=== PATIENT | female | born 1980 ===

== ENCOUNTER 2020-07-14 08:37 | Outpatient (REF) | payer MEDICARE, OTHER, SELFPAY ==
--- NOTE | 2020-07-14 08:53 | MR_ITS ---
EXAMINATION: MR CERVICAL SPINE WITHOUT CONTRAST CLINICAL INFORMATION: Cervical spine fusion in 2016. Locking with arm pain, trouble swallowing, bilateral arm tingling. Chest spasms. COMPARISON: Cervical spine MRI dated 08/27/2016. TECHNIQUE: MRI of the cervical spine was obtained using routine sequences without contrast. FINDINGS: VERTEBRAL BODIES AND PARASPINAL SOFT TISSUES: Straightening of the normal cervical lordosis, which may be positional or related to muscular spasm. No acute fracture or subluxation. No loss of vertebral body height. Anterior fusion hardware at C5-C6. No adjacent marrow edema to suggest hardware complication. No additional abnormal marrow signal. The visualized paraspinal soft tissues are unremarkable. CERVICOMEDULLARY JUNCTION AND VISUALIZED POSTERIOR FOSSA: Unremarkable. SPINAL LEVELS: C2-C3: No significant disc bulge. No central canal or neural foraminal stenosis. C3-C4: Redemonstration of a right subarticular disc protrusion with mild right neural foraminal stenosis. C4-C5: Small left paracentral disc protrusion which effaces the ventral thecal sac with an associated posterior annular fissure. No significant neural foraminal stenosis. C5-C6: Shallow disc osteophyte complex which partially effaces the ventral thecal sac. No significant neural foraminal stenosis. C6-C7: No significant disc bulge. No central canal or neural foraminal stenosis. C7-T1: No significant disc bulge. No central canal or neural foraminal stenosis. IMPRESSION: 1. Postsurgical changes related to anterior fusion hardware at C5-C6. Shallow disc osteophyte complex at this level which partially effaces the ventral thecal sac without significant neural foraminal stenosis. Findings are similar when compared to the prior examination. 2. C3-C4 right subarticular disc protrusion with mild right neural foraminal stenosis, unchanged. 3. C4-C5 small left paracentral disc protrusion which effaces the ventral thecal sac where there is annular fissuring. Findings are new when compared to the prior examination. No significant neural foraminal stenosis. Findings are new when compared to the prior examination.
== END 2020-07-14 08:38 | disposition home or self-care (01) ==
LOC: HO.MRI 08:37
PROVIDERS: PCP Internal Medicine Geriatric Medicine; Visit Provider Internal Medicine Geriatric Medicine
DX: R20.0 Anesthesia of skin (principal); R20.2 Paresthesia of skin; M62.838 Other muscle spasm; M54.2 Cervicalgia; G89.29 Other chronic pain; Z98.1 Arthrodesis status
CPT/HCPCS: 72141

== ENCOUNTER 2020-10-05 09:06 | Emergency (ER) | payer MEDICARE, OTHER, SELFPAY ==
[2020-10-05 10:21] VITALS: BP 126/84; PULSE 65; RESP 16; TEMP 36.6; O2SAT 99; BMI 25.8
--- NOTE | 2020-10-05 10:23 | ED_ITS ---
HPI - URI/Sore Throat General Chief Complaint: Upper Respiratory Symptoms Stated Complaint: multiple complaints Time Seen by Provider: 10/05/20 10:23 History of Present Illness HPI Narrative: This is a 40 years old female presented the mid to URI symptoms and chest pain since yesterday. Denies any fever chills MD elicited complaint: rhinorrhea and nasal congestion Onset (ago): day(s) (1) Consistency: constant Severity: moderate Description of mucous: clear Associated symptoms: denies other symptoms Related Data Previous Rx's Medication Instructions Recorded cephalexin [Keflex] 500 mg PO Q8H 7 Days #21 cap 10/05/20 Allergies Allergy/AdvReac Type Severity Reaction Status Date / Time baclofen [BACLOFEN] Allergy Mild NAUSEA & Unverified 06/19/20 17:50 VOMITING From COMPAZINE Allergy Mild AGITATION Uncoded 06/19/20 17:50 From REGLAN Allergy Mild AGITATION Uncoded 06/19/20 17:50 Review of Systems Review of Systems: Yes all other systems are reviewed and are negative Cardiovascular: Cardiovascular: Reports no additional cardiovascular complaints Genitourinary: Genitourinary: Reports no additional female genitourinary complaints Musculoskeletal: Musculoskeletal: Reports no additional musculoskeletal complaints Psychiatric: Psychiatric: Reports no additional psychiatric complaints [facility] Past Medical History Medical History Anxiety Asthma Fibromyalgia HTN (hypertension) Social History Social History Advance Directives: No Advance Directives Information Provided: No Physical Exam Vital Signs: Vital Signs: Last Vital Signs Temp 98 F 10/05/20 10:21 Pulse 57 10/05/20 11:07 Resp 18 10/05/20 11:07 BP 126/84 10/05/20 10:21 Pulse Ox 99 10/05/20 11:07 Body Mass Index 25.8 Const: Other: She appear well as she has no toxic Orientation/consciousness: oriented to person, oriented to place, oriented to time and patient oriented x3 HENMT: Head: Yes normal to inspection and Yes No palpable skull fracture present Eyes: General: appearance normal, both eyes and all related structures Neck: Neck: Yes normal visual inspection Chest: Chest palpation & inspection: normal inspection of the chest and normal palpation of entire chest wall Resp: Effort & Inspection: normal respiratory effort and able to speak in complete sentences Cardio: Jugular venous distension: no JVD Rate: regular rate GI: Inspection: Yes normal to inspection Palpation (GI): Soft to palpation, nontender and no guarding Skin: General skin exam: no rashes or lesions noted Neuro: General: oriented to person, oriented to place, oriented to time and patient oriented x3 Course Course Course Narrative: REEXAMINED AT ABOUT 12:10 SHE IS NOT IN DISTRESS SHE IS TESTING WITH THE PHONE SHE APPEAR COMFORTABLE CBC CHEMISTRY ESSENTIALLY NORMAL UA SHOWS A POSSIBLE UTI WILL DISCHARGE HOME ON P.O. [address]EF[address] MDM - URI/Sore Throat Lab Data Result diagrams: 10/05/20 11:07 10/05/20 11:07 Labs: Lab Results 10/05/20 10/05/20 10/05/20 Range/Units 11:07 11:07 11:07 WBC 3.7 L (4.8-10.8) X10*3/uL RBC 4.88 (4.20-5.50) X10*6/uL Hgb 13.4 (12.0-16.0) g/dl Hct 40.5 (37-47) % MCV 83.0 (80-98) fL MCH 27.5 (27.0-33.0) pg MCHC 33.1 (31.0-35.0) g/dl RDW 13.5 (11.0-16.0) % Plt Count 265 (160-400) X10*3/uL MPV 11.0 (9.4-12.3) fL Immature Gran % (Auto) 0.3 (0.0-0.4) % Neut % (Auto) 38.7 L (45-73) % Lymph % (Auto) 49.7 H (20-40) % [place] % (Auto) 7.0 (2-11) % Eos % (Auto) 3.5 (0-4) % Baso % (Auto) 0.8 (0-2) % Lymph # (Auto) 1.8 (1.2-4.9) X10*3/uL [place] # (Auto) 0.3 (0.1-1.2) X10*3/uL Eos # (Auto) 0.1 (0.0-0.4) X10*3/uL Baso # (Auto) 0.0 (0.0-0.2) X10*3/uL Abs Immat Gran (auto) 0.01 (0.00-0.03) X10*3/uL Absolute Neuts (auto) 1.4 L (2.0-8.3) X10*3/uL Absolute Nucleated RBC 0.000 (0.0-0.012) X10*3/uL Nucleated RBC % (auto) 0.0 (0.0-0.2) /100WBC Sodium 141 (135-145) mmol/L Potassium 3.2 L (3.3-5.1) mmol/l Chloride 104 (96-108) mmol/L Carbon Dioxide 30 H (22-29) mmol/L Anion Gap 10 L (12-20) BUN 5 L (9-16) mg/dL Creatinine 0.78 (0.5-1.4) mg/dL Estim Creat Clear Calc 97.8 Estimated GFR > 60 Random Glucose 87 (60-115) mg/dL Calcium 8.7 (8.4-10.2) mg/dL Total Bilirubin 0.6 (0.0-1.0) mg/dL AST 14 (5-31) U/L ALT 15 (0-31) U/L Alkaline Phosphatase 62 (39-117) U/L Troponin I High Sens < 3.5 (<3.5-17.0) ng/L Total Protein 6.8 (6.5-8.0) g/dL Albumin 4.3 (3.5-5.0) g/dL Urine Color Urine Appearance Urine pH (5.0-8.0) Ur Specific Reserve (1.005-1.025) Urine Protein (NEG-TRACE) MG/DL Urine Glucose (UA) (NEG) MG/DL Urine Ketones (NEG) MG/DL Urine Blood (NEG) Urine Nitrite (NEG) Ur Leukocyte Esterase (NEG) Urine Test (NEGATIVE) Coronavirus (PCR) (Negative) Influenza Type A (PCR) (Negative) Influenza Type B (PCR) (Negative) RSV RNA Qual (PCR) (Negative) 10/05/20 10/05/20 Range/Units 11:07 11:07 WBC (4.8-10.8) X10*3/uL RBC (4.20-5.50) X10*6/uL Hgb (12.0-16.0) g/dl Hct (37-47) % MCV (80-98) fL MCH (27.0-33.0) pg MCHC (31.0-35.0) g/dl RDW (11.0-16.0) % Plt Count (160-400) X10*3/uL MPV (9.4-12.3) fL Immature Gran % (Auto) (0.0-0.4) % Neut % (Auto) (45-73) % Lymph % (Auto) (20-40) % [place] % (Auto) (2-11) % Eos % (Auto) (0-4) % Baso % (Auto) (0-2) % Lymph # (Auto) (1.2-4.9) X10*3/uL [place] # (Auto) (0.1-1.2) X10*3/uL Eos # (Auto) (0.0-0.4) X10*3/uL Baso # (Auto) (0.0-0.2) X10*3/uL Abs Immat Gran (auto) (0.00-0.03) X10*3/uL Absolute Neuts (auto) (2.0-8.3) X10*3/uL Absolute Nucleated RBC (0.0-0.012) X10*3/uL Nucleated RBC % (auto) (0.0-0.2) /100WBC Sodium (135-145) mmol/L Potassium (3.3-5.1) mmol/l Chloride (96-108) mmol/L Carbon Dioxide (22-29) mmol/L Anion Gap (12-20) BUN (9-16) mg/dL Creatinine (0.5-1.4) mg/dL Estim Creat Clear Calc Estimated GFR Random Glucose (60-115) mg/dL Calcium (8.4-10.2) mg/dL Total Bilirubin (0.0-1.0) mg/dL AST (5-31) U/L ALT (0-31) U/L Alkaline Phosphatase (39-117) U/L Troponin I High Sens (<3.5-17.0) ng/L Total Protein (6.5-8.0) g/dL Albumin (3.5-5.0) g/dL Urine Color YELLOW Urine Appearance HAZY Urine pH 6.5 (5.0-8.0) Ur Specific Reserve 1.010 (1.005-1.025) Urine Protein NEG (NEG-TRACE) MG/DL Urine Glucose (UA) NEG (NEG) MG/DL Urine Ketones NEG (NEG) MG/DL Urine Blood NEG (NEG) Urine Nitrite NEG (NEG) Ur Leukocyte Esterase NEG (NEG) Urine Test NEGATIVE (NEGATIVE) Coronavirus (PCR) NEGATIVE (Negative) Influenza Type A (PCR) NEGATIVE (Negative) Influenza Type B (PCR) NEGATIVE (Negative) RSV RNA Qual (PCR) NEGATIVE (Negative) ECG Data Attestation: I personally reviewed and interpreted this ECG as follows: ECG interpretation date: 10/05/20 ECG interpretation time: 12:44 Prior ECG tracings: available for review Pacemaker model: NORMAL SINUS RHYTHM RATE [address]-T CHANGES Discharge Plan Discharge Clinical Impression: Upper respiratory infection, UTI (urinary tract infection) Patient Disposition: Home, Self-Care Instructions: Urinary Tract Infection in Women (ED), Upper Respiratory Infection (ED) Additional Instructions: FOLLOW-UP WITH YOUR PRIMARY CARE PHYSICIAN RETURN IF YOU WORSE Prescriptions: New cephalexin [Keflex] 500 mg capsule 500 mg PO Q8H 7 Days Qty: 21 RF: 0 Stand Alone Forms: Work/School Release
--- NOTE | 2020-10-05 10:28 | XR_ITS ---
EXAMINATION: XR CHEST CLINICAL INFORMATION: Chest pain. COMPARISON: None TECHNIQUE: Frontal view of the chest was obtained. FINDINGS: No significant abnormality is noted involving the heart, lungs, mediastinum, bony thorax or soft tissues. XR/XR chest 1V IMPRESSION: Unremarkable chest examination.
--- NOTE | 2020-10-05 10:28 | ECG_ITS ---
Test Reason : SOB Blood Pressure : / mmHG Vent. Rate : 061 BPM Atrial Rate : 061 BPM P-R Int : 178 ms QRS Dur : 088 ms QT Int : 438 ms P-R-T Axes : 067 101 037 degrees QTc Int : 440 ms Normal sinus rhythm Possible Left atrial enlargement Rightward axis Borderline ECG No previous ECGs available Referred By: Fabian Machuca Electronically Signed By:CRIS VENTURA
[2020-10-05 11:07] VITALS: PULSE 57; RESP 18; O2SAT 99
[2020-10-05 11:13] LABS: MANUAL DIFF FLAG NO
[2020-10-05 11:22] LABS: Basophils Percent Auto 0.8 % (0-2); Eosinophils Absolute Auto 0.1 X10*3/uL (0.0-0.4); Eosinophils Percent Auto 3.5 % (0-4); Hematocrit 40.5 % (37-47); Hemoglobin 13.4 g/dl (12.0-16.0); Imm Gran Abs Auto 0.01 X10*3/uL (0.00-0.03); Imm Gran Pct Auto 0.3 % (0.0-0.4); Lymphocytes Absolute Auto 1.8 X10*3/uL (1.2-4.9); Lymphocytes Percent Auto 49.7 % (20-40); Mean Corpuscular HGB Conc 33.1 g/dl (31.0-35.0); Mean Corpuscular Hemoglobin 27.5 pg (27.0-33.0); Monocytes Absolute Auto 0.3 X10*3/uL (0.1-1.2); Neutrophils Absolute Auto 1.4 X10*3/uL (2.0-8.3); Neutrophils Percent Auto 38.7 % (45-73); Platelet Count 265 X10*3/uL (160-400); Red Blood Count 4.88 X10*6/uL (4.20-5.50); Red Cell Distribution Width 13.5 % (11.0-16.0); White Blood Count 3.7 X10*3/uL (4.8-10.8)
[2020-10-05 11:29] LABS: Glucose Urine UA NEG (NEG); Leukocyte Esterase Urine NEG (NEG); Nitrite Urine NEG (NEG); PH 6.5 (5.0-8.0); Urine Blood NEG (NEG); Urine Ketones NEG (NEG); Urine Protein NEG (NEG-TRACE)
[2020-10-05 11:31] LABS: Appearance Urine HAZY; Color Urine YELLOW; UPreg QC Valid YES; Urine Pregnancy NEGATIVE (NEGATIVE)
[2020-10-05 11:39] LABS: Alanine Aminotransferase 15 U/L (0-31); Albumin Level 4.3 g/dL (3.5-5.0); Alkaline Phosphatase 62 U/L (39-117); Anion Gap 10 (12-20); Aspartate Amino Transferase 14 U/L (5-31); Bilirubin Total 0.6 mg/dL (0.0-1.0); Blood Urea Nitrogen 5 mg/dL (9-16); Calcium 8.7 mg/dL (8.4-10.2); Carbon Dioxide 30 mmol/L (22-29); Chloride 104 mmol/L (96-108); Creatinine Clr Calc Pharmacy 97.8; Estimated Glomerular Filt Rate > 60; Glucose Random 87 mg/dL (60-115); Potassium 3.2 mmol/l (3.3-5.1); Sodium 141 mmol/L (135-145); Total Protein 6.8 g/dL (6.5-8.0)
[2020-10-05 11:44] LABS: Troponin-I High Sensitivity < 3.5 ng/L (<3.5-17.0)
[2020-10-05 12:05] LABS: Influenza A PCR NEGATIVE (Negative); Influenza B PCR NEGATIVE (Negative); Resp Syncy Virus RNA Qual PCR NEGATIVE (Negative); SARS COV2 PCR INHOUSE NEGATIVE (Negative)
== END 2020-10-05 13:02 | disposition home or self-care (01) ==
PROVIDERS: Emergency Provider Emergency Medicine; PCP Internal Medicine Geriatric Medicine
DX: J06.9 Acute upper respiratory infection, unspecified (principal); N39.0 Urinary tract infection, site not specified; Z20.828 Contact with and (suspected) exposure to other viral communicable diseases
CPT/HCPCS: 0241U; 36415; 71045; 80053; 81003; 81025; 84484; 85025; 93005; 99283; 99284

== ENCOUNTER 2021-02-18 17:53 | Outpatient (REF) | payer MEDICARE, OTHER, SELFPAY ==
--- NOTE | ~2021-02-18 | MR_ITS ---
EXAMINATION: MR LUMBAR SPINE WITHOUT CONTRAST CLINICAL INFORMATION: Low back pain and sciatica. COMPARISON: None TECHNIQUE: MRI of the lumbar spine was obtained using routine sequences without contrast. FINDINGS: VERTEBRAL BODIES AND PARASPINAL STRUCTURES: There are only 4 lumbar-type vertebral bodies that are nonrib-bearing. For the purposes in counting, the L1 vertebral body will be considered a rib-bearing vertebra. The marrow signal is homogeneous. There are no compression fractures or subluxations. There is a lobulated 1.8 cm synovial cyst posterior to the right L2-L3 facet joint in the soft tissues. The discs are fairly well hydrated. The remaining paraspinal soft tissues are unremarkable. CONUS MEDULLARIS AND CAUDA EQUINA: Normal, terminating at the level of L2. No lower cord signal abnormality is seen. The cauda equina nerve roots are normal. SPINAL LEVELS: L1-L2: Well-hydrated normal appearance of the disc without central canal stenosis or foraminal narrowing. L2-L3: No disc pathology. Very mild facet arthropathy and synovial cyst posterior to the right facet joint. Patent central canal and foramina. L3-L4: Well-hydrated disc. No central canal stenosis or foraminal narrowing. L4-L5: No disc abnormality. Patent central canal and foramina. L5-S1: Very mild annular bulge. No central canal stenosis. Mild facet arthropathy and very mild foraminal encroachment. MR/MR lumbar spine wo con IMPRESSION: Transitional anatomy with only 4 lumbar-type vertebral bodies. The L1 vertebral body is rib-bearing for the purposes of counting. Mild facet arthropathy at L2-L3 with a synovial cyst posterior to the right facet joint. No foraminal encroachment. Very mild spondylosis at the L5-S1 level. No focal disc protrusion or central canal stenosis.
== END 2021-02-18 17:54 | disposition home or self-care (01) ==
LOC: HO.MRI 17:53
PROVIDERS: Visit Provider Internal Medicine Geriatric Medicine
DX: M54.30 Sciatica, unspecified side (principal); M54.5 Low back pain; G89.29 Other chronic pain
CPT/HCPCS: 72148

== ENCOUNTER 2021-11-02 14:32 | Outpatient (REF) | payer MEDICARE, MEDICAID, SELFPAY ==
--- NOTE | ~2021-11-02 | XR_ITS ---
EXAMINATION: XR CHEST CLINICAL INFORMATION: Post Covid 19 COMPARISON: None TECHNIQUE: 2 views of the chest were obtained. FINDINGS: No significant abnormality is noted involving the heart, lungs, mediastinum, bony thorax or soft tissues. XR/XR chest 2V IMPRESSION: Unremarkable chest examination.
== END 2021-11-02 14:33 | disposition home or self-care (01) ==
LOC: HO.XRAY 14:32
PROVIDERS: Absent Provider Internal Medicine Geriatric Medicine; PCP Internal Medicine Geriatric Medicine; Visit Provider Emergency Medicine
DX: U09.9 Post COVID-19 condition, unspecified (principal); R06.02 Shortness of breath; R07.89 Other chest pain
CPT/HCPCS: 71046

== ENCOUNTER → 2021-11-03 13:05 | Outpatient (REF) | payer MEDICARE, MEDICAID, SELFPAY ==
--- NOTE | 2021-11-03 13:16 | CA_ITS ---
Transthoracic Echocardiogram Patient (Last, First, Middle): Karena Nayak M Gender: Female Date of : 1980 Age: 41 Procedure Date: 11/03/2021 Procedure Type: Transthoracic Echocardiogram Location: OP Height: 157.48 cm Weight: 68.04 kg BSA: 1.69 m2 Heart Rate: bpm BP: 130 / 86 mmHg [employer] Supervisor: GALE Referring MD: Nevin Romo VETERINARY RADIOLOGIST Symptoms: U09.9 POST COVID 19 CONDITION SOB CHEST TIGHTNESS Study Quality: Good ECG Rhythm: Sinus Conclusions: - The left ventricular systolic function is normal. The calculated ejection fraction is 67% by biplane method. - No obvious valvular pathology seen on this study. Findings Left Ventricle Normal left ventricular cavity size. There is normal left ventricular wall thickness. The left ventricular systolic function is normal. The calculated ejection fraction is 67% by biplane method. There is no evidence of regional wall motion abnormalities. Diastolic function is normal for age. Right Ventricle Normal right ventricular cavity size and systolic function. Atria Both atria are normal in size. Aortic Valve There is a normal trileaflet aortic valve. There is no aortic valve stenosis. There is no aortic valve regurgitation. Mitral Valve The mitral valve appears normal. There is trace mitral valve regurgitation. There is no mitral valve stenosis. Pulmonic Valve The pulmonic valve was not well visualized. Tricuspid Valve Normal tricuspid valve structure. There is trace tricuspid valve regurgitation. The pulmonary artery systolic pressure is normal. Great Vessels The aortic annulus, sinuses of valsalva, and asc aorta are normal in size. Aortic arch measured at 3.5cm, but likely not accurate. Re-measured manually and appears <3cm. Venous The inferior vena cava is normal in size and collapses greater than 50% with inspiration. Pericardium/Pleural There is no evidence of pericardial effusion. Prior Study Comparison No prior study available for comparison. Recommendations, Care & Conclusions No obvious valvular pathology seen on this study. Measurements 2D Linear Measurements IVSd: 0.84 0.6-0.9/0.6-1.0 cm LVIDd: 4.17 3.9-5.3/4.2-5.9 cm LVIDd Index: 2.47 2.4-3.2/2.2-3.1 cm/m2 LVIDs: 2.68 2.0-3.6 cm LVPWd: 1.10 0.7-1.1 cm Ao Root: 3.40 2.1-3.5 cm LA Diam: 2.80 2.7-3.8/3.0-4.0 cm LAIDs Index: 1.66 1.5-2.3 cm/m2 LV Mass: 161.69 67-162/88-224 g LV Mass Index: 95.68 43-95/49-115 g/m2 LVOT Diam: 2.20 3.0+(-)1.3 cm 2D Systolic Function EF 4C: 69.80 >55% EF 2C: 67.80 >55% EF BiP: 66.60 >55% Mitral Valve MV Pk E: 1.05 MV PK A: 0.58 MV Decel Time: 180.00 E/A: 1.80 E'Lateral: 14.00 E'Medial: 8.70 E/E' Med: 12.10 E/E' Lat: 7.50 PHT: 53.00 MVA PHT: 4.15 Decel [place]: 5.83 Aortic Valve AoV Pk [place]: 1.58 AoV Mn [place]: 1.15 AoV VTI: 0.37 AoV Pk Grad: 10.00 Aov Mn Grad: 6.00 ANGEL Cont.VTI: 2.43 LVOT LVOT Pk [place]: 1.16 LVOT Mn [place]: 0.68 LVOT VTI: 0.24 LVOT Pk Grad: 5.00 LVOT Mn Grad: 2.00 LVOT Diam: 2.20 LVOT Area: 3.80 Diastolic Function MV Pk E: 1.05 MV Pk A: 0.58 E/A: 1.80 E'Medial: 8.70 E/E' Med: 12.10 E' Laterial: 14.00 E/E' Lat: 7.50 Right Ventricle TAPSE (mm): 30.00 TVS' [place]: 14.30 Tricuspid Valve TR Pk [place]: 1.48 TR Pk Grad: 9.00 RA Press: 3.00 RVSP: 12.00 Great Vessels Aorta Ao Root-2D: 3.40 2.0-3.7 cm Ao Asc: 3.10 2.1-3.4 cm Ao Arch: 3.50 Updated in Other Vendor System with Status of Final Jackson Torres MD electronically signed on 11/04/2021 12:24:24 PM with status of Final
== END ==
LOC: HO.CARD 13:05
PROVIDERS: PCP Internal Medicine Geriatric Medicine; Visit Provider Emergency Medicine
DX: U09.9 Post COVID-19 condition, unspecified (principal)
CPT/HCPCS: 93306

== ENCOUNTER 2022-02-09 13:58 | Outpatient (REF) | payer MEDICARE, MEDICAID, SELFPAY ==
--- NOTE | ~2022-02-09 | US_ITS ---
EXAMINATION: US SOFT TISSUE NECK CLINICAL INFORMATION: Localized enlarged lymph nodes, right submandibular. COMPARISON: Ultrasound soft tissue head/neck thyroid dated 11/27/2019. TECHNIQUE: Ultrasound of the right submandibular area is performed with high-frequency cifuentes-scale imaging and color Doppler. FINDINGS: In the region of the patient's lump as shown by patient represents the right submandibular gland without adjacent lymphadenopathy. Within the peripheral aspect of the gland there is a 1 x 0.5 cm region of diminished echotexture without causing mass effect. On comparison imaging provided this is not seen within the left submandibular gland. There is some vascularity present, however, the region is not hyperemic. US/US soft tiss head and/or neck IMPRESSION: 1 x 0.5 cm intrinsic hypoechoic region within the peripheral aspect of the right submandibular gland which does not demonstrate mass impression or distortion of the gland. This is of uncertain significance and could be inflammatory in nature or due to benign or malignant process. If patient is not complaining about acute infectious or inflammatory process I would recommend MRI for further evaluation of possible tumor.
== END 2022-02-09 13:59 | disposition home or self-care (01) ==
LOC: HO.HMGCX 13:58
PROVIDERS: Visit Provider Nurse Practitioner Primary Care
DX: R59.0 Localized enlarged lymph nodes (principal)
CPT/HCPCS: 76536

== ENCOUNTER 2022-02-16 09:24 | Outpatient (REF) | payer MEDICARE, MEDICAID, SELFPAY ==
--- NOTE | ~2022-02-16 | MR_ITS ---
EXAMINATION: MRI NECK WITHOUT AND WITH CONTRAST CLINICAL INFORMATION: Palpable parotid mass. COMPARISON: Neck ultrasound February 09, 2022. TECHNIQUE: Multiplanar multisequence MRI of the neck was performed without and with contrast. A total of 7 mL Gadavist was intravenously administered. FINDINGS: A skin marker was placed within the right submandibular triangle region. The right submandibular gland appears normal. No mass or acute inflammation is seen. There is no dilatation of the submandibular duct. No stranding is seen along the floor of mouth. No parotid gland mass is seen. The parotid glands appear normal and symmetric without inflammation or Stensen's duct dilatation. The service dog trainer spaces appear symmetric. The mandibular ramus demonstrates normal marrow signal. The pharyngeal contours appear normal. The palatine tonsils and base of tongue appear normal. There is no laryngeal lesion. No enlarged cervical chain lymph nodes are seen. A 1.1 cm nodule is seen within the right lobe of the thyroid gland. The size of this nodule is stable compared with the dedicated thyroid ultrasound from November 27, 2019. The cervical cord signal appears normal. Degenerative changes are seen at C5-C6. Imaged intracranial contents are unremarkable. MR/MR orbits face neck wo/w con IMPRESSION: No neck mass or lymphadenopathy identified. The right submandibular gland appears normal. The area of heterogeneity seen on the ultrasound is not corroborated on the MRI. This area of heterogeneity could possibly reflect sequela of prior sialoadenitis. Clinical follow-up is recommended. Given that this finding was best identified on ultrasound, consider further ultrasound follow-up at a later date.
[2022-02-16 10:52] LABS: Anion Gap 12 (12-20); Blood Urea Nitrogen 10 mg/dL (9-16); Calcium 10.2 mg/dL (8.4-10.2); Carbon Dioxide 28 mmol/L (22-29); Chloride 106 mmol/L (96-108); Estimated Glomerular Filt Rate > 60; Glucose Random 60 mg/dL (60-115); Potassium 3.7 mmol/L (3.3-5.1); Sodium 142 mmol/L (135-145)
== END 2022-02-16 09:25 | disposition home or self-care (01) ==
LOC: HO.MRI 09:24
PROVIDERS: Visit Provider Internal Medicine Geriatric Medicine
DX: D49.0 Neoplasm of unspecified behavior of digestive system (principal)
CPT/HCPCS: 36415; 70543; 80048; A9585

== ENCOUNTER 2022-09-17 10:47 | Emergency (ER) | payer MEDICARE, MEDICAID, SELFPAY ==
--- NOTE | ~2022-09-17 | XR_ITS ---
EXAMINATION: XR CHEST CLINICAL INFORMATION: Hypertension. Dizziness. COMPARISON: Most recent chest radiograph dated 11/02/2021. TECHNIQUE: 2 views of the chest were obtained. FINDINGS: The lungs are clear. The cardiomediastinal silhouette is normal in size. There is no pleural effusion or pneumothorax. No acute osseous abnormality. XR/XR chest 2V IMPRESSION: No acute cardiopulmonary findings.
[2022-09-17 10:49] VITALS: BP 145/97; PULSE 66; RESP 18; TEMP 36.9; O2SAT 98; BMI 28.9
--- NOTE | 2022-09-17 11:14 | ECG_ITS ---
Test Reason : chest pain Blood Pressure : / mmHG Vent. Rate : 063 BPM Atrial Rate : 063 BPM P-R Int : 172 ms QRS Dur : 094 ms QT Int : 414 ms P-R-T Axes : 065 104 039 degrees QTc Int : 423 ms Normal sinus rhythm Rightward axis Borderline ECG When compared with ECG of 05-OCT-2020 11:56, No significant change was found Referred By: Blessing Mason Electronically Signed By:CRIS VENTURA
--- NOTE | 2022-09-17 11:17 | ED.GENADULT ---
HPI - General Adult General Chief complaint: General Medical <LIN Winter Last Filed: 09/17/22 11:32> Stated complaint: HBP Chest Pain Dizziness <LIN Winter Last Filed: 09/17/22 11:32> Time Seen by Provider: 09/17/22 11:33 <LIN Winter Last Filed: 09/17/22 11:32> Source: patient <DO Marina Mays Last Filed: 09/17/22 14:56> Mode of arrival: ambulatory <Gurinder Yang DO - Last Filed: 09/17/22 14:56> Limitations: no limitations <DO Marina Mays Last Filed: 09/17/22 14:56> History of Present Illness HPI narrative: 42-year-old female presents emergency room with multiple complaints. Patient states she has been having issues with her blood pressure as well as ketones in her urine and chest pain for months. She states she has appoint with her primary care doctor next week but was concerned blood pressure still elevated patient denies any fevers or chills she denies any falls or injuries on arrival blood pressure is only 145/97. She states she has no headache she has no changes in vision <DO Marina Mays Last Filed: 09/17/22 14:56> Related Data Home medications: Previous Rx's Medication Instructions Recorded cephalexin 500 mg capsule (Keflex) 500 mg PO Q8H 7 days #21 caps 10/05/20 prednisone 20 mg tablet 60 mg PO DAILY Asthma 5 days #15 09/17/22 tabs <LIN Winter Last Filed: 09/17/22 11:32> Allergies/adverse reactions: Allergies Allergy/AdvReac Type Severity Reaction Status Date / Time baclofen [BACLOFEN] Allergy Mild NAUSEA & Unverified 06/19/20 17:50 VOMITING From COMPAZINE Allergy Mild AGITATION Uncoded 06/19/20 17:50 From REGLAN Allergy Mild AGITATION Uncoded 06/19/20 17:50 <LIN Winter Last Filed: 09/17/22 11:32> Review of Systems Review of Systems: Review of systems: General: Patient denies any fever chills recent illness or falls Musculoskeletal: Denies back pain or body aches or other injuries HEENT: denies headache, runny nose, ear pain Respiratory: denies shortness of breath, cough Cardiovascular: chest pain no palpitations : denies dysuria, frequency Abdomen: no nausea vomiting denies abdominal pain Extremities: no swelling, no pain Skin: no diaphoresis <DO Marina Mays Last Filed: 09/17/22 14:56> Yes all other systems are reviewed and are negative <Gurinder Yang DO - Last Filed: 09/17/22 14:56> PMFSH Past Medical History Medical History: Medical History Anxiety Asthma Fibromyalgia HTN (hypertension) <LIN Winter - Last Filed: 09/17/22 11:32> Social History Social History: Social History Advance Directives: No Advance Directives Information Provided: Yes <LIN Winter Last Filed: 09/17/22 11:32> Physical Exam ED Vital Signs: Vital Signs - 24 hr 09/17/22 10:49 09/17/22 13:06 Temperature 98.4 F 98.2 F Pulse Rate 66 61 Respiratory Rate 18 16 Blood Pressure 145/97 H 117/73 Pulse Oximetry 98 99 Oxygen Delivery Method Room Air Room Air BMI result Body Mass Index 28.9 <LIN Winter Last Filed: 09/17/22 11:32> Vital Signs - 24 hr 09/17/22 10:49 09/17/22 13:06 Temperature 98.4 F 98.2 F Pulse Rate 66 61 Respiratory Rate 18 16 Blood Pressure 145/97 H 117/73 Pulse Oximetry 98 99 Oxygen Delivery Method Room Air Room Air BMI result Body Mass Index 28.9 <Gurinder Yang DO - Last Filed: 09/17/22 14:56> General: Well-appearing well-nourished in no signs of distress HEENT: Normocephalic atraumatic Neck: No signs of JVD, no masses no tenderness or lymphadenopathy Cardiovascular: Regular rate and rhythm Respiratory: Clear to auscultation bilaterally Abdomen: Soft non tender no masses Extremities: Normal pedal pulses no signs of edema Skin: Dry warm no rashes Back: No tenderness full ROM <DO Marina Mays Last Filed: 09/17/22 14:56> Course Course Course Narrative: BEVERLY- 11:15am - 42yoF c PMHx of HTN on BP meds taking as prescribed preseting to the ED c c/o of chest heaviness/pain, dizziness, cough from recent infection a week before thanksgiving, SOB and nausea. Along with elevated BP's of 184/101. Reports she went to Urgent Care and was found to have Bilirubin and ketones in urine. Patient is stable at this time. Blood pressure at 145 around 97. Otherwise all other vitals are within normal limits. Normal steady gait. Lungs clear to auscultation. CV RRR. Abdomen is soft and nontender. No lower extremity edema or calf tenderness noted. Plan: Therefore at this time labs, EKG, chest x-ray, UA, UHCG ordered. Patient is stable to go back to the waiting room to be evaluated in the emergency department. <LIN Winter - Last Filed: 09/17/22 11:32> Medical Decision Making Medical Decision Making MDM Narrative: 42-year-old female with multiple complaints feels pressure family is here I will check labs make sure kidney function is okay I do not think the patient is having a heart attack have given EKG chest x-ray is unremarkable. Unlikely story for heart disease pain improved with prednisone I will start on a short course with PCP follow up. <DO Marina Mays Last Filed: 09/17/22 14:56> Differential Diagnosis Differential Diagnoses: The differential diagnosis associated with the presentation includes <DO Marina Mays Last Filed: 09/17/22 14:56> ACS, Pneumonia, espophageal rupture, hypertension, anxiety, chest wall strain, bronchitis or costochondritis or uti. with a weeks of symtoms it is much less likely a deadly cause of chest pain. I will repeat labs and UA <DO Marina Mays Last Filed: 09/17/22 14:56> Admission/Observation Consideration of admission/observation: Escalation of care including admission/observation considered <DO Marina Mays Last Filed: 09/17/22 14:56> Lab Data Result Diagrams: : 09/17/22 12:14 09/17/22 12:13 <LIN Winter - Last Filed: 09/17/22 11:32> Labs: Lab Results 09/17/22 09/17/22 09/17/22 Range/Units 11:19 11:19 12:13 WBC (4.8-10.8) X10*3/uL RBC (4.20-5.50) X10*6/uL Hgb (12.0-16.0) g/dl Hct (37.0-47.0) % MCV (80.0-98.0) fL MCH (27.0-33.0) pg MCHC (31.0-35.0) g/dl RDW (11.0-16.0) % Plt Count (160-400) X10*3/uL MPV (9.4-12.3) fL Immature Gran % (Auto) (0.0-0.4) % Neut % (Auto) (45-73) % Lymph % (Auto) (20-40) % [facility] % (Auto) (2-11) % Eos % (Auto) (0-4) % Baso % (Auto) (0-2) % Lymph # (Auto) (1.2-4.9) X10*3/uL [facility] # (Auto) (0.1-1.2) X10*3/uL Eos # (Auto) (0.0-0.4) X10*3/uL Baso # (Auto) (0.0-0.2) X10*3/uL Abs Immat Gran (auto) (0.00-0.03) X10*3/uL Absolute Neuts (auto) (2.0-8.3) x10*3/uL Absolute Nucleated RBC (0.0-0.012) X10*3/uL Nucleated RBC % (auto) (0.0-0.2) /100WBC PT 12.7 (10.0-13.1) SEC INR 1.1 (0.9-1.1) Sodium (135-145) mmol/L Potassium (3.3-5.1) mmol/L Chloride (96-108) mmol/L Carbon Dioxide (22-29) mmol/L Anion Gap (12-20) BUN (9-16) mg/dL Creatinine (0.5-1.4) mg/dL Estim Creat Clear Calc Estimated GFR Random Glucose (60-115) mg/dL Calcium (8.4-10.2) mg/dL Magnesium (1.6-2.6) mg/dL Total Bilirubin (0.0-1.0) mg/dL AST (5-31) U/L ALT (0-31) U/L Alkaline Phosphatase (39-117) U/L Troponin I High Sens (<3.5-17.0) ng/L Total Protein (6.5-8.0) g/dL Albumin (3.5-5.0) g/dL Urine Color Yellow Urine Appearance Clear Urine pH 7.5 (5.0-9.0) Ur Specific [place] <= 1.005 (1.005-1.025) Urine Protein Negative (Neg-Trace) mg/dL Urine Glucose (UA) Negative (Negative) mg/dL Urine Ketones Negative (Negative) mg/dL Urine Blood Negative (Negative) Urine Nitrite Negative (Negative) Ur Leukocyte Esterase Negative (Negative) Urine Test NEGATIVE (NEGATIVE) 09/17/22 09/17/22 09/17/22 Range/Units 12:13 12:13 12:14 WBC 4.3 L (4.8-10.8) X10*3/uL RBC 4.97 (4.20-5.50) X10*6/uL Hgb 13.2 (12.0-16.0) g/dl Hct 39.7 (37.0-47.0) % MCV 79.9 L (80.0-98.0) fL MCH 26.6 L (27.0-33.0) pg MCHC 33.2 (31.0-35.0) g/dl RDW 13.5 (11.0-16.0) % Plt Count 273 (160-400) X10*3/uL MPV 10.5 (9.4-12.3) fL Immature Gran % (Auto) 0.2 (0.0-0.4) % Neut % (Auto) 47.0 (45-73) % Lymph % (Auto) 38.5 (20-40) % [facility] % (Auto) 10.4 (2-11) % Eos % (Auto) 3.2 (0-4) % Baso % (Auto) 0.7 (0-2) % Lymph # (Auto) 1.7 (1.2-4.9) X10*3/uL [facility] # (Auto) 0.5 (0.1-1.2) X10*3/uL Eos # (Auto) 0.1 (0.0-0.4) X10*3/uL Baso # (Auto) 0.0 (0.0-0.2) X10*3/uL Abs Immat Gran (auto) 0.01 (0.00-0.03) X10*3/uL Absolute Neuts (auto) 2.0 (2.0-8.3) x10*3/uL Absolute Nucleated RBC 0.000 (0.0-0.012) X10*3/uL Nucleated RBC % (auto) 0.0 (0.0-0.2) /100WBC PT (10.0-13.1) SEC INR (0.9-1.1) Sodium 138 (135-145) mmol/L Potassium 3.5 (3.3-5.1) mmol/L Chloride 106 (96-108) mmol/L Carbon Dioxide 25 (22-29) mmol/L Anion Gap 11 L (12-20) BUN 6 L (9-16) mg/dL Creatinine 0.77 (0.5-1.4) mg/dL Estim Creat Clear Calc 88.2 Estimated GFR > 60 Random Glucose 83 (60-115) mg/dL Calcium 9.0 D (8.4-10.2) mg/dL Magnesium 1.9 (1.6-2.6) mg/dL Total Bilirubin 1.0 (0.0-1.0) mg/dL AST 15 (5-31) U/L ALT 16 (0-31) U/L Alkaline Phosphatase 77 (39-117) U/L Troponin I High Sens < 3.5 (<3.5-17.0) ng/L Total Protein 6.3 L (6.5-8.0) g/dL Albumin 4.0 (3.5-5.0) g/dL Urine Color Urine Appearance Urine pH (5.0-9.0) Ur Specific [place] (1.005-1.025) Urine Protein (Neg-Trace) mg/dL Urine Glucose (UA) (Negative) mg/dL Urine Ketones (Negative) mg/dL Urine Blood (Negative) Urine Nitrite (Negative) Ur Leukocyte Esterase (Negative) Urine Test (NEGATIVE) 09/17/22 Range/Units 13:27 WBC (4.8-10.8) X10*3/uL RBC (4.20-5.50) X10*6/uL Hgb (12.0-16.0) g/dl Hct (37.0-47.0) % MCV (80.0-98.0) fL MCH (27.0-33.0) pg MCHC (31.0-35.0) g/dl RDW (11.0-16.0) % Plt Count (160-400) X10*3/uL MPV (9.4-12.3) fL Immature Gran % (Auto) (0.0-0.4) % Neut % (Auto) (45-73) % Lymph % (Auto) (20-40) % [facility] % (Auto) (2-11) % Eos % (Auto) (0-4) % Baso % (Auto) (0-2) % Lymph # (Auto) (1.2-4.9) X10*3/uL [facility] # (Auto) (0.1-1.2) X10*3/uL Eos # (Auto) (0.0-0.4) X10*3/uL Baso # (Auto) (0.0-0.2) X10*3/uL Abs Immat Gran (auto) (0.00-0.03) X10*3/uL Absolute Neuts (auto) (2.0-8.3) x10*3/uL Absolute Nucleated RBC (0.0-0.012) X10*3/uL Nucleated RBC % (auto) (0.0-0.2) /100WBC PT (10.0-13.1) SEC INR (0.9-1.1) Sodium (135-145) mmol/L Potassium (3.3-5.1) mmol/L Chloride (96-108) mmol/L Carbon Dioxide (22-29) mmol/L Anion Gap (12-20) BUN (9-16) mg/dL Creatinine (0.5-1.4) mg/dL Estim Creat Clear Calc Estimated GFR Random Glucose (60-115) mg/dL Calcium (8.4-10.2) mg/dL Magnesium (1.6-2.6) mg/dL Total Bilirubin (0.0-1.0) mg/dL AST (5-31) U/L ALT (0-31) U/L Alkaline Phosphatase (39-117) U/L Troponin I High Sens (<3.5-17.0) ng/L Total Protein (6.5-8.0) g/dL Albumin (3.5-5.0) g/dL Urine Color Yellow Urine Appearance Clear Urine pH 8.0 (5.0-9.0) Ur Specific [place] 1.010 (1.005-1.025) Urine Protein Negative (Neg-Trace) mg/dL Urine Glucose (UA) Negative (Negative) mg/dL Urine Ketones Negative (Negative) mg/dL Urine Blood Negative (Negative) Urine Nitrite Negative (Negative) Ur Leukocyte Esterase Negative (Negative) Urine Test (NEGATIVE) <LIN Winter - Last Filed: 09/17/22 11:32> Lab Results 09/17/22 09/17/22 09/17/22 Range/Units 11:19 11:19 12:13 WBC (4.8-10.8) X10*3/uL RBC (4.20-5.50) X10*6/uL Hgb (12.0-16.0) g/dl Hct (37.0-47.0) % MCV (80.0-98.0) fL MCH (27.0-33.0) pg MCHC (31.0-35.0) g/dl RDW (11.0-16.0) % Plt Count (160-400) X10*3/uL MPV (9.4-12.3) fL Immature Gran % (Auto) (0.0-0.4) % Neut % (Auto) (45-73) % Lymph % (Auto) (20-40) % [facility] % (Auto) (2-11) % Eos % (Auto) (0-4) % Baso % (Auto) (0-2) % Lymph # (Auto) (1.2-4.9) X10*3/uL [facility] # (Auto) (0.1-1.2) X10*3/uL Eos # (Auto) (0.0-0.4) X10*3/uL Baso # (Auto) (0.0-0.2) X10*3/uL Abs Immat Gran (auto) (0.00-0.03) X10*3/uL Absolute Neuts (auto) (2.0-8.3) x10*3/uL Absolute Nucleated RBC (0.0-0.012) X10*3/uL Nucleated RBC % (auto) (0.0-0.2) /100WBC PT 12.7 (10.0-13.1) SEC INR 1.1 (0.9-1.1) Sodium (135-145) mmol/L Potassium (3.3-5.1) mmol/L Chloride (96-108) mmol/L Carbon Dioxide (22-29) mmol/L Anion Gap (12-20) BUN (9-16) mg/dL Creatinine (0.5-1.4) mg/dL Estim Creat Clear Calc Estimated GFR Random Glucose (60-115) mg/dL Calcium (8.4-10.2) mg/dL Magnesium (1.6-2.6) mg/dL Total Bilirubin (0.0-1.0) mg/dL AST (5-31) U/L ALT (0-31) U/L Alkaline Phosphatase (39-117) U/L Troponin I High Sens (<3.5-17.0) ng/L Total Protein (6.5-8.0) g/dL Albumin (3.5-5.0) g/dL Urine Color Yellow Urine Appearance Clear Urine pH 7.5 (5.0-9.0) Ur Specific [place] <= 1.005 (1.005-1.025) Urine Protein Negative (Neg-Trace) mg/dL Urine Glucose (UA) Negative (Negative) mg/dL Urine Ketones Negative (Negative) mg/dL Urine Blood Negative (Negative) Urine Nitrite Negative (Negative) Ur Leukocyte Esterase Negative (Negative) Urine Test NEGATIVE (NEGATIVE) 09/17/22 09/17/22 09/17/22 Range/Units 12:13 12:13 12:14 WBC 4.3 L (4.8-10.8) X10*3/uL RBC 4.97 (4.20-5.50) X10*6/uL Hgb 13.2 (12.0-16.0) g/dl Hct 39.7 (37.0-47.0) % MCV 79.9 L (80.0-98.0) fL MCH 26.6 L (27.0-33.0) pg MCHC 33.2 (31.0-35.0) g/dl RDW 13.5 (11.0-16.0) % Plt Count 273 (160-400) X10*3/uL MPV 10.5 (9.4-12.3) fL Immature Gran % (Auto) 0.2 (0.0-0.4) % Neut % (Auto) 47.0 (45-73) % Lymph % (Auto) 38.5 (20-40) % [facility] % (Auto) 10.4 (2-11) % Eos % (Auto) 3.2 (0-4) % Baso % (Auto) 0.7 (0-2) % Lymph # (Auto) 1.7 (1.2-4.9) X10*3/uL [facility] # (Auto) 0.5 (0.1-1.2) X10*3/uL Eos # (Auto) 0.1 (0.0-0.4) X10*3/uL Baso # (Auto) 0.0 (0.0-0.2) X10*3/uL Abs Immat Gran (auto) 0.01 (0.00-0.03) X10*3/uL Absolute Neuts (auto) 2.0 (2.0-8.3) x10*3/uL Absolute Nucleated RBC 0.000 (0.0-0.012) X10*3/uL Nucleated RBC % (auto) 0.0 (0.0-0.2) /100WBC PT (10.0-13.1) SEC INR (0.9-1.1) Sodium 138 (135-145) mmol/L Potassium 3.5 (3.3-5.1) mmol/L Chloride 106 (96-108) mmol/L Carbon Dioxide 25 (22-29) mmol/L Anion Gap 11 L (12-20) BUN 6 L (9-16) mg/dL Creatinine 0.77 (0.5-1.4) mg/dL Estim Creat Clear Calc 88.2 Estimated GFR > 60 Random Glucose 83 (60-115) mg/dL Calcium 9.0 D (8.4-10.2) mg/dL Magnesium 1.9 (1.6-2.6) mg/dL Total Bilirubin 1.0 (0.0-1.0) mg/dL AST 15 (5-31) U/L ALT 16 (0-31) U/L Alkaline Phosphatase 77 (39-117) U/L Troponin I High Sens < 3.5 (<3.5-17.0) ng/L Total Protein 6.3 L (6.5-8.0) g/dL Albumin 4.0 (3.5-5.0) g/dL Urine Color Urine Appearance Urine pH (5.0-9.0) Ur Specific [place] (1.005-1.025) Urine Protein (Neg-Trace) mg/dL Urine Glucose (UA) (Negative) mg/dL Urine Ketones (Negative) mg/dL Urine Blood (Negative) Urine Nitrite (Negative) Ur Leukocyte Esterase (Negative) Urine Test (NEGATIVE) 09/17/22 Range/Units 13:27 WBC (4.8-10.8) X10*3/uL RBC (4.20-5.50) X10*6/uL Hgb (12.0-16.0) g/dl Hct (37.0-47.0) % MCV (80.0-98.0) fL MCH (27.0-33.0) pg MCHC (31.0-35.0) g/dl RDW (11.0-16.0) % Plt Count (160-400) X10*3/uL MPV (9.4-12.3) fL Immature Gran % (Auto) (0.0-0.4) % Neut % (Auto) (45-73) % Lymph % (Auto) (20-40) % [facility] % (Auto) (2-11) % Eos % (Auto) (0-4) % Baso % (Auto) (0-2) % Lymph # (Auto) (1.2-4.9) X10*3/uL [facility] [place] # (Auto) (0.1-1.2) X10*3/uL Eos # (Auto) (0.0-0.4) X10*3/uL Baso # (Auto) (0.0-0.2) X10*3/uL Abs Immat Gran (auto) (0.00-0.03) X10*3/uL Absolute Neuts (auto) (2.0-8.3) x10*3/uL Absolute Nucleated RBC (0.0-0.012) X10*3/uL Nucleated RBC % (auto) (0.0-0.2) /100WBC PT (10.0-13.1) SEC INR (0.9-1.1) Sodium (135-145) mmol/L Potassium (3.3-5.1) mmol/L Chloride (96-108) mmol/L Carbon Dioxide (22-29) mmol/L Anion Gap (12-20) BUN (9-16) mg/dL Creatinine (0.5-1.4) mg/dL Estim Creat Clear Calc Estimated GFR Random Glucose (60-115) mg/dL Calcium (8.4-10.2) mg/dL Magnesium (1.6-2.6) mg/dL Total Bilirubin (0.0-1.0) mg/dL AST (5-31) U/L ALT (0-31) U/L Alkaline Phosphatase (39-117) U/L Troponin I High Sens (<3.5-17.0) ng/L Total Protein (6.5-8.0) g/dL Albumin (3.5-5.0) g/dL Urine Color Yellow Urine Appearance Clear Urine pH 8.0 (5.0-9.0) Ur Specific [place] 1.010 (1.005-1.025) Urine Protein Negative (Neg-Trace) mg/dL Urine Glucose (UA) Negative (Negative) mg/dL Urine Ketones Negative (Negative) mg/dL Urine Blood Negative (Negative) Urine Nitrite Negative (Negative) Ur Leukocyte Esterase Negative (Negative) Urine Test (NEGATIVE) <Gurinder Yang DO - Last Filed: 09/17/22 14:56> Discharge Plan Discharge Clinical Impression: Chest pain, Hypertension <LIN Winter - Last Filed: 09/17/22 11:32> Patient Disposition: Home, Self-Care <LIN Winter - Last Filed: 09/17/22 11:32> Instructions: Chest Pain (DC), Hypertension (ED) <LIN Winter - Last Filed: 09/17/22 11:32> Additional Instructions: Your XR and labs were all normal. You have normal kidney liver a clean XR. You can take prednisone for the next few days and follow up with your doctor. <LIN Winter - Last Filed: 09/17/22 11:32> Prescriptions: New prednisone 20 mg tablet 60 mg PO DAILY 5 Days Qty: 15 0RF No Action cephalexin [Keflex] 500 mg capsule 500 mg PO Q8H 7 Days Qty: 21 0RF <LIN Winter - Last Filed: 09/17/22 11:32>
[2022-09-17 11:29] LABS: Appearance Urine Clear; Color Urine Yellow; Glucose Urine UA Negative (Negative); Leukocyte Esterase Urine Negative (Negative); Nitrite Urine Negative (Negative); PH 7.5 (5.0-9.0); Specific Gravity - Urine <= 1.005 (1.005-1.025); Urine Blood Negative (Negative); Urine Ketones Negative (Negative); Urine Protein Negative (Neg-Trace)
[2022-09-17 11:32] LABS: UPreg QC Valid YES; Urine Pregnancy NEGATIVE (NEGATIVE)
--- OUTSIDE RECORDS SUMMARY | 2022-09-17 11:38 | XMS_ITS | Encounter Summary ---
:1980 Author Reason for Visit Urinary Complaint; Cough Had covid at Thanksgiving time, develope d into Bronchitis. Finished antibiotics. Now having cough pain in chest from coughing, wheezing, chills, nausea, urine dark/cloudy (started 4 days ago). Assessment and Plan 1. Cough Wheezing right lower quadrant - cough o digna 3 weeks. ? XR, chest, 2 view ? rapid flu (A+B) 2. Candidiasis of vagina ? urinalysis, dipstick ? test, urine ? culture, urine ? Diflucan 200 mg tablet 3. Hypertensive disorder Your blood pressure was elevated today - you need to follow up with your PCP for this. Medication may need to be adjusted . Please keep a journal of AM and PM readings from a home cuff. This will help adjust medications. 4. Acute bronchitis ? prednisone 10 mg tablet ? benzonatate 200 mg capsule Discussion Note: None recorded.Patient educational handouts: No information available. Plan of Care Reminders Provider Appointments None recorded. ? ? Lab Urinalysis, Dipstick 09/07/2022 [id number] ? Test, Urine 09/07/2022 [id number] ? Rapid Flu (A+B) 09/07/202220995[facility] ? Culture, Urine 09/07/2022 [facility] (Lorraine ramírez) Referral None recorded. ? ? Procedures None recorded. ? ? Surgeries None recorded. ? ? Imaging XR, Chest, 2 View 09/07/2022 [facility] Medications Name Start Date ? ? benzonatate 200 mg capsule ? Take 1 capsule 3 times a day by oral route. prn cough chlorthalidone ? Diflucan 200 mg tablet ? Take 1 tablet every week by oral route. Klonopin 0.5 mg tablet ? Take 1 tablet 3 times a day by oral route. Percocet ? prednisone 10 mg tablet ? 3 pills po qd x 3 days, 2 pills po qd x 3 days, 1 pil l po qd x 3 days Medications Administered None recorded. Vitals Height Weight BMI Blood Pressure 5 ft 2 in 156 lbs 28.5 kg/m2 (1) 194/94 mm[H g] (2) 150/92 mm[Hg ] Results Lab Results Date Name Specimen Result Interpretation Description Value Range Status Address ? 09/07/2022 Culture, URINE ? Urine Culture, final ? Fi nal [facility] Urine Routine report [facility]: [address], [place] ? ? URINE ? Result 1 no growth ? Final [facility]: [address], [place] 09/07/2022 Rapid Flu ? Result negative ? ? _[place] (A+B) Influenza a penicole mason dr: [address], [place] ? ? ? Result negative ? ? _c hico Influenza B peeme marlon dr: [address], [place] 09/07/2022 ? Result Urine negative ? ? _chico Test, Urine pe emem[address] dr: [address], [place] 09/07/2022 Urinalysis, ? Value Color Dark Yellow ? ? _chico Dipstick pe[address]: [address], [place] ? ? ? Value Clarity clear ? ? _[place]ico [address] l [address]: [address], [place] ? ? ? Value Glucose Negative ? ? _[facility]ico [address] l dr: [address], [place] ? ? ? Value Small ? ? _chic o Bilirubin peem[address] dr: [address], [place] ? ? ? Value Ketones >=160 mg/dL ? ? _[place]ico [address]: [address], [place] ? ? ? Value Specific 1.025 ? ? 2 1005_chico Andrews [address]: [address], [place] ? ? ? Value Blood Negative ? ? _[facility]ico [address] dr: [address], [place] ? ? ? Value pH 6.5 ? ? _c hico [address]: [address], [place] ? ? ? Value Protein 15 mg/dL ? ? _chico [address] dr: [address] [facility] [place] ? ? ? Value 1.0 E.U./dL ? ? _[facility] Urobilinogen [facility] [facility] [facility] ? ? ? Value Nitrites Negative ? ? _[place]ico [address]: [address] [facility], [place] ? ? ? Value Negative ? ? _ch ico Leukocytes pe[address] dr: [address] [facility] [place] Allergies Code Code System Name Reaction Severity Onset 1292 RxNorm Baclofen Hives ? Tachycardia ? ? 866027 RxNorm Compazine Hives ? Tachycardia ? ? 6902687 RxNorm Latex Angioedema ? Hives ? ? 6470 RxNorm Lorazepam Dyspnea ? ? Nsaids (Non-steroidal Hives ? ? Anti-inflammatory Drug) ? Swelling ? ? 9230 RxNorm Reglan Hives ? Tachycardia ? ? 16283 RxNorm Zofran Hives ? Tachycardia ? ? Problems Name Status Onset Date Source ? Hypertensive Disorder Active 09/07/2022 ? Fibromyalgia Active 09/07/2022 ? 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 Procedures Date Name Performed by ? ? Ligation of Fallopian Tube Information n ot available Notes: 2002 ? Procedure on Back Information not avai lable Notes: 2016 09/07/2022 XR, Chest, 2 View [facility] [address] [place] [address] (Work [address]) Vaccine List None recorded. Social History Tobacco Smoking Status Never Smoker What is your level of alcohol consumption? Occasional Do you or have you ever used any other forms of tobacco or n icotine? N Have you recently traveled abroad? N Do you use any illicit or recreational drugs? N Family History Relation Problem Onset Age of Age Notes Father No current problems or (No Information) N/A ( No Notes) disability Mother No current problems or (No Information) N/A ( No Notes) disability Functional Status Unknown. Past Encounters Encounter Date Diagnosis Provider 09/07/2022 Cough; Candidiasis of Vagina; Irina galeas PA: 1505 Hypertensive Disorder; Acute [facility] [place], [place] Bronchitis [address], Ph. 08/16/2022 2[facility]: [address], [place] [address], Ph. [phone] History of Present Illness ? Cough Reported By: Patient HPI: source of patient informatio n Information obtained from patient, Patient [facility]. Quality: harsh, productive cough. Severity: worsening. Duratio n: symptoms lasting over 2 weeks. Associated Symptoms: no nausea, no vomi ting, fever, chills, wheezing, post nasal drip, hurts to breath Notes: <div>The patient had COVID o digna 1 month ago - led into a Cough and was seen here. Was RXd antibioti cs - and she finished the full course. Just seems like she can't get ove r the symptoms. The patient reports that feels terrible in the last f ew days. Fever, body aches, Congestion. Family members tested positi ve for COVID last week. She was around them. Allergic to Eggs so no flu v accine. The patient is also having cloudy urine and white vaginal disc harge. Is prone to yeast infections after antibiotics. Also has been t aking albuterol in </div> Review of Systems ? [facility] General Adult ROS Reported By: Patient Constitutional: Constitutional: fever/chills , night sweats Eyes: Eyes: no irritation, no visi on change ENMT: Ears: no ear pain. Nose: NO loss of taste/smell, nose/sinus problems, nasal congestion/d ischarge. Mouth/Throat: No hoarseness, sore throat, dri p or drainage down throat from above Cardiovascular: Cardiovascular: no chest matilda n, no palpitations Respiratory: Respiratory: no wheezing, No t coughing up sputum, cough productive, shortness of tyrone ath, congested in the chest Gastrointestinal: Gastrointestinal: no diarrhe a, nausea, vomiting Genitourinary: Genitourinary: no dysuria, i ncreased urinary frequency, vaginal discharge Musculoskeletal: Musculoskeletal: no muscle a ches Integumentary: Skin: no rashes Neurologic: Neurologic: headaches mild Endocrine: Endocrine: fatigue Hematologic/Lymphatic: Hematologic/Lymphatic no swo llen glands Physical Exam ? [facility] General Adult Exam Both, Ear Pain Exam Reported By: Patient Constitutional: General Appearance: healthy- appearing, well-nourished; sleeping in room when I ente red - fatigued Psychiatric: Mental Status: normal mood, normal affect Head: Head: no abnormalities Eyes: Lids and Conjunctivae: non-i njected ENMT: Ears: TMs clear. Hearing: no rmal. Nose: nasal discharge--purulent. Lips, T eeth, and Gums: no mouth or lip ulcers. Oropharynx: moist mu cous membranes, erythema Neck: Neck: supple, non tender, tr achea midline Lungs: Respiratory effort: no dyspn ea, nonlabored. Auscultation: no rales/crackles, no stridor, expiratory wheezing, rhonchi; Right Lower Lung Cardiovascular System: Apical Impulse: not displace d. Heart Auscultation: regular rate and rhythm, no murmurs, no rubs Abdomen: Bowel Sounds: normoactive. I nspection and Palpation: soft, non-distended, no tenderness , no guarding, no rebound tenderness, no CVA tendernes s. Liver: non-tender Skin: Inspection and palpation: no rash Lymph Nodes: Cervical: no palpable lymph node enlargement
--- OUTSIDE RECORDS SUMMARY | 2022-09-17 11:38 | XMS_ITS | Encounter Summary ---
:1980 Author Reason for Visit None recorded. Assessment and Plan None recorded.Discussion Note: None recorded.Patient educational handouts: No information available. Plan of Care Reminders Provider Appointments None recorded. ? ? Lab None recorded. ? ? Referral None recorded. ? ? Procedures None recorded. ? ? Surgeries None recorded. ? ? Imaging None recorded. ? ? Medications Name Start Date ? ? benzonatate [...] 3 days Medications Administered None recorded. Vitals None recorded. Results Lab Results None recorded. Allergies Code Code System Name Reaction Severity Onset 1292 RxNorm Baclofen Hives ? Tachycardia ? ? 823680 RxNorm Compazine Hives ? Tachycardia ? ? 9784542 RxNorm Latex Angioedema ? Hives ? ? 6470 RxNorm Lorazepam Dyspnea ? ? Nsaids (Non-steroidal Hives ? ? Anti-inflammatory Drug) ? Swelling ? ? 9230 RxNorm Reglan Hives ? Tachycardia ? ? 17791 RxNorm Zofran Hives ? Tachycardia ? ? Problems Name Status Onset Date Source ? Hypertensive Disorder Active 09/07/2022 ? Fibromyalgia Active 09/07/2022 ? 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 Procedures Date Name Performed by ? ? Ligation of Fallopian Tube Information n ot available Notes: 2002 ? Procedure on Back Information not avai natalie Notes: 2015 Vaccine List None recorded. Social History Tobacco [...] Notes) disability Functional Status Unknown. Past Encounters None recorded. History of Present Illness None recorded. Review of Systems None recorded. Physical Exam None recorded.
--- OUTSIDE RECORDS SUMMARY | 2022-09-17 11:38 | XMS_ITS ---
:1980 Author Care Team Providers Name Role Phone [phone]_Gabriela Primary Care Provider Unavailable Allergies Code Code System Name Reaction Severity Status Onset 1292 RxNorm Baclofen Hives ? Active ? Tachycardia ? Active ? 259318 RxNorm Compazine Hives ? Active ? Tachycardia ? Active ? 1894288 RxNorm Latex Angioedema ? Active ? Hives ? Active ? 6470 RxNorm Lorazepam Dyspnea ? Active ? Nsaids (Non-steroidal Hives ? Active ? Anti-inflammatory Drug) ? Swelling ? Active ? 9230 RxNorm Reglan Hives ? Active ? Tachycardia ? Active ? 73839 RxNorm Zofran Hives ? Active ? Tachycardia ? Active ? Medications Name Status Start Date Stop Date ? ? benzonatate 200 mg capsule Active ? Not a vailable Take 1 capsule 3 times a day by oral route. prn cough chlorthalidone Active ? Not available Diflucan 200 mg tablet Active ? Not avail able Take 1 tablet every week by oral route. Klonopin 0.5 mg tablet Active ? Not avail able Take 1 tablet 3 times a day by oral route. Percocet Active ? Not available prednisone 10 mg tablet Active ? Not avai lable 3 pills po qd x 3 days, 2 pills po qd x 3 days, 1 pill po qd x 3 days Problems Name Status Onset Date Source ? Hypertensive Disorder Active 09/07/2022 ? Fibromyalgia Active 09/07/2022 ? 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 Procedures Date Name Performed by ? ? Ligation of Fallopian Tube Information n ot available Notes: 2002 ? Procedure on Back Information not avai lable Notes: 2016 09/07/2022 XR, Chest, 2 View [facility] [address] [place] [address] (Work [address]) Results Lab Results Date Name Specimen Result Interpretation Description Value Range Status Address ? 09/07/2022 Culture, URINE ? Urine Culture, final ? Fi nal [facility] Urine Routine report [facility]: [address], [place] ? ? URINE ? Result 1 no growth ? Final [facility]: [address], [place] 09/07/2022 Rapid Flu ? Result negative ? ? _[place] (A+B) Influenza a peeme morial dr: [address], [place] ? ? ? Result negative ? ? _c hico Influenza B peeme [address] dr: [address], [place] 09/07/2022 ? Result Urine negative ? ? _chico Test, Urine pe [address] dr: [address], [place] 09/07/2022 Urinalysis, ? Value Color Dark Yellow ? ? _chico Dipstick [address]: [address], [place] ? ? ? Value Clarity clear ? ? _chico [address]: [address], [place] ? ? ? Value Glucose Negative ? ? _chico [address]: [address], [place] ? ? ? Value Small ? ? _chic o Bilirubin [address]: [address], [place] ? ? ? Value Ketones >=160 mg/dL ? ? _chico [address]: [address], [place] ? ? ? Value Specific 1.025 ? ? 2 1005_chico [place] [address]: [address], [place] ? ? ? Value Blood Negative ? ? 005_chico [address]: [address], [place] ? ? ? Value pH 6.5 ? ? _c hico [address]: [address], [place] ? ? ? Value Protein 15 mg/dL ? ? _chico [address]: [address], [place] ? ? ? Value 1.0 E.U./dL ? ? _chico Urobilinogen [address]: [address], [place] ? ? ? Value Nitrites Negative ? ? _chico [address]: [address], [place] ? ? ? Value Negative ? ? _ ico Leukocytes [address] dr: [address] [facility] [place] Past Encounters Encounter Date Diagnosis Provider 09/07/2022 Cough; Candidiasis of Vagina; Irina galeas PA: 1505 Hypertensive Disorder; Acute [facility] [address] [place] [place], [place] Bronchitis [address], Ph. [phone] 08/16/2022[facility] [address] [facility] [place] [address], Ph. 11/03/2021_[facility] al[facility]: [address] [place] [address], Ph. Social History Tobacco Smoking Status Never Smoker Vaccine List None recorded. Plan of Care Reminders Provider Appointments None recorded. ? ? Lab None recorded. ? ? Referral None recorded. ? ? Procedures None recorded. ? ? Surgeries None recorded. ? ? Imaging None recorded. ? ? Vitals Height Weight BMI Blood Pressure 5 ft 2 in 156 lbs 28.5 kg/m2 (1) 194/94 mm[H g] (2) 150/92 mm[Hg ]
[2022-09-17 12:22] LABS: Basophils Percent Auto 0.7 % (0-2); Eosinophils Absolute Auto 0.1 X10*3/uL (0.0-0.4); Eosinophils Percent Auto 3.2 % (0-4); Hematocrit 39.7 % (37.0-47.0); Hemoglobin 13.2 g/dl (12.0-16.0); Imm Gran Abs Auto 0.01 X10*3/uL (0.00-0.03); Imm Gran Pct Auto 0.2 % (0.0-0.4); Lymphocytes Absolute Auto 1.7 X10*3/uL (1.2-4.9); Lymphocytes Percent Auto 38.5 % (20-40); MANUAL DIFF FLAG NO; Mean Corpuscular HGB Conc 33.2 g/dl (31.0-35.0); Mean Corpuscular Hemoglobin 26.6 pg (27.0-33.0); Mean Corpuscular Volume 79.9 fL (80.0-98.0); Mean Platelet Volume 10.5 fL (9.4-12.3); Monocytes Absolute Auto 0.5 X10*3/uL (0.1-1.2); Monocytes Percent Auto 10.4 % (2-11); Platelet Count 273 X10*3/uL (160-400); Red Blood Count 4.97 X10*6/uL (4.20-5.50); Red Cell Distribution Width 13.5 % (11.0-16.0); White Blood Count 4.3 X10*3/uL (4.8-10.8)
[2022-09-17 12:42] LABS: INTERNATIONAL NORM RATIO 1.1 (0.9-1.1); Prothrombin Time 12.7 SEC (10.0-13.1)
[2022-09-17 13:06] VITALS: BP 117/73; PULSE 61; RESP 16; TEMP 36.8; O2SAT 99
[2022-09-17 13:39] LABS: Appearance Urine Clear; Color Urine Yellow; Glucose Urine UA Negative (Negative); Leukocyte Esterase Urine Negative (Negative); Nitrite Urine Negative (Negative); Urine Blood Negative (Negative); Urine Ketones Negative (Negative); Urine Protein Negative (Neg-Trace)
[2022-09-17 14:05] LABS: Troponin-I High Sensitivity < 3.5 ng/L (<3.5-17.0)
[2022-09-17 14:50] LABS: Alanine Aminotransferase 16 U/L (0-31); Aspartate Amino Transferase 15 U/L (5-31); Blood Urea Nitrogen 6 mg/dL (9-16); Carbon Dioxide 25 mmol/L (22-29); Chloride 106 mmol/L (96-108); Estimated Glomerular Filt Rate > 60; Magnesium 1.9 mg/dL (1.6-2.6); Total Protein 6.3 g/dL (6.5-8.0)
[2022-09-17 14:56] LABS: Alkaline Phosphatase 78 U/L (39-117); Anion Gap 12 (12-20); Calcium 9.3 mg/dL (8.4-10.2); Creatinine Clr Calc Pharmacy 89.3; Glucose Random 82 mg/dL (60-115); Potassium 3.6 mmol/L (3.3-5.1); Sodium 139 mmol/L (135-145)
--- NOTE | 2022-09-17 15:54 | PC.NURSE ---
pt was resting in the room in no acute outward distress, she has not been coughing or sob. plan is for discharge home
== END 2022-09-17 15:56 | disposition home or self-care (01) ==
PROVIDERS: Physician Assistant Medical; Emergency Provider Student in an Organized Health Care Education/Training Program; PCP Internal Medicine Geriatric Medicine
DX: R07.9 Chest pain, unspecified (principal); I10 Essential (primary) hypertension
CPT/HCPCS: 36415; 71046; 80053; 81003; 81025; 83735; 84484; 85025; 85610; 93005; 99283; 99284

== ENCOUNTER 2023-02-08 15:07 | Emergency (ER) | payer MEDICARE, MEDICAID, SELFPAY ==
--- NOTE | ~2023-02-08 | XR_ITS ---
EXAMINATION: XR CHEST CLINICAL INFORMATION: Chest pain COMPARISON: Previous chest x-ray most recent September 2022 TECHNIQUE: 2 views of the chest were obtained. FINDINGS: No significant abnormality is noted involving the heart, lungs, mediastinum, bony thorax or soft tissues. Postsurgical changes to the lower cervical spine. XR/XR chest 2V IMPRESSION: No evidence for acute disease in the chest.
--- NOTE | 2023-02-08 15:12 | ECG_ITS ---
Test Reason : CHEST PAIN Blood Pressure : / mmHG Vent. Rate : 073 BPM Atrial Rate : 073 BPM P-R Int : 172 ms QRS Dur : 086 ms QT Int : 402 ms P-R-T Axes : 063 109 019 degrees QTc Int : 442 ms Normal sinus rhythm Possible Left atrial enlargement Rightward axis Nonspecific T wave abnormality Abnormal ECG When compared with ECG of 17-SEP-2022 11:23, Nonspecific ST and T wave abnormality present Referred By: Kamille Mcqueen Electronically Signed By:CRIS VENTURA
--- NOTE | 2023-02-08 15:13 | ED_ITS ---
HPI - Chest Pain General Chief Complaint: Chest Pain <LIN Regan - Last Filed: 02/08/23 15:17> Stated Complaint: chest pain/ high bp <LIN Regan - Last Filed: 02/08/23 15:17> Time Seen by Provider: 02/08/23 20:12 <LIN Regan - Last Filed: 02/08/23 15:17> Source: patient <Kenny Johns MD - Last Filed: 02/09/23 01:11> Mode of arrival: ambulatory <Kenny Johns MD - Last Filed: 02/09/23 01:11> Limitations: no limitations <Kenny Johns MD - Last Filed: 02/09/23 01:11> History of Present Illness HPI narrative: Patient with history of hypertension on chlorthalidone, history of fibromyalgia complaining of pain in left arm with numbness feeling chest pain tight aching and pressure for last 3 days taking oxycodone for pain no nausea no vomiting no diaphoresis no palpitation pain increases on palpation and movement patient checked her blood pressure was elevated 178/98 patient went to [facility] unable to see the physician went home again today she called her PCP who was to the hospital <Kenny Johns MD - Last Filed: 02/09/23 01:11> Related Data Home Medications: Previous Rx's Medication Instructions Recorded cephalexin 500 mg capsule (Keflex) 500 mg PO Q8H 7 days #21 caps 10/05/20 prednisone 20 mg tablet 60 mg PO DAILY Asthma 5 days #15 09/17/22 tabs losartan 50 mg tablet 50 mg PO DAILY #30 tabs 02/08/23 <LIN Regan - Last Filed: 02/08/23 15:17> Allergies/Adverse Reactions: Allergies Allergy/AdvReac Type Severity Reaction Status Date / Time baclofen [BACLOFEN] Allergy Mild NAUSEA & Unverified 06/19/20 17:50 VOMITING latex Allergy Hives Verified 02/08/23 15:19 lorazepam Allergy Shortness Verified 02/08/23 15:18 of Breath ondansetron [From Zofran] Allergy Chest Pain Verified 02/08/23 15:18 From COMPAZINE Allergy Mild AGITATION Uncoded 09/17/20 17:50 From REGLAN Allergy Mild AGITATION Uncoded 06/19/20 17:50 <LIN Regan - Last Filed: 02/08/23 15:17> Review of Systems Review of Systems: Yes all other systems are reviewed and are negative <Kenny Johns MD - Last Filed: 02/09/23 01:11> [facility] Past Medical History Medical History: Medical History Anxiety Asthma Fibromyalgia HTN (hypertension) <LIN Regan - Last Filed: 02/08/23 15:17> Social History Social History: Social History Alcohol intake: never Smoked in Last 30 Days: No Use of substances other than those prescribed or required for medical reasons: No Advance Directives: No Advance Directives Information Provided: Yes Patient : No <LIN Regan - Last Filed: 02/08/23 15:17> Physical Exam Vital Signs: Vital Signs: Last Vital Signs Temp 98.6 F 02/08/23 21:28 Pulse 78 02/08/23 21:28 Resp 16 02/08/23 21:28 BP 125/72 02/08/23 21:28 Pulse Ox 100 02/08/23 21:28 O2 Del Method Room Air 02/08/23 21:28 BMI result Body Mass Index 30.2 <LIN Regan - Last Filed: 02/08/23 15:17> Vital Signs: Last Vital Signs Temp 98.6 F 02/08/23 21:28 Pulse 78 02/08/23 21:28 Resp 16 02/08/23 21:28 BP 125/72 02/08/23 21:28 Pulse Ox 100 02/08/23 21:28 O2 Del Method Room Air 02/08/23 21:28 BMI result Body Mass Index 30.2 <Kenny Johns MD - Last Filed: 02/09/23 01:11> Appearance: Alert. Oriented X3. No acute distress. Eyes: PERRLA no pallor or recur ENT: Pharynx normal. Oral Mucosa moist Neck: Normal inspection. Neck supple. CVS: Normal heart rate and rhythm. Pulses normal. Chest wall tenderness++ on left side Respiratory: No respiratory distress. Equal air entry bilateral, no wh eezing/rales/rhonchi Abdomen: Soft and nontender. Bowel sounds are present, no mass palpable, no CVA tenderness Skin: Skin warm and dry. Normal skin color. Normal skin turgor. Extremities: No lower extremity edema. No calf tenderness Neuro: Oriented X 3. No motor deficit. No sensory deficit.No cerebellar signs , cranial nerves II-XII intact <Kenny Johns MD - Last Filed: 02/09/23 01:11> Course Course Course Narrative: RME: 42yo F w/PMHx anxiety, asthma, fibromyalgia, HTN, c/o lightheadedness & chest pressure/heaviness since Tuesday w/ radiating down LUE. Was seen at [facility] on Tuesday had labs drawn in [place] however eloped. Denies N/V, SOB BP 154/105 in triage, admits to taking her BP meds EKG, labs, CXR ordered Full HPI, ROS and PE to be performed by primary ED provider. <LIN Regan - Last Filed: 02/08/23 15:17> Medications Administered Discontinued Medications Generic Name Dose Route Start Last Admin Trade Name Freq PRN Reason Stop Dose Admin Losartan Potassium 50 mg 02/08/23 20:42 02/08/23 20:51 Losartan Potassium 50 Mg Tablet PO 02/08/23 20:43 50 mg ONCE ONE Administration Protocol Potassium Bicarbonate 50 meq 02/08/23 20:42 02/08/23 20:51 Potassium Bicarbonate/Cit Ac 25 Meq Tablet.Eff PO 02/08/23 20:43 50 meq ONCE ONE Administration <LIN Regan - Last Filed: 02/08/23 15:17> Medications Administered Discontinued Medications Generic Name Dose Route Start Last Admin Trade Name Freq PRN Reason Stop Dose Admin Losartan Potassium 50 mg 02/08/23 20:42 02/08/23 20:51 Losartan Potassium 50 Mg Tablet PO 02/08/23 20:43 50 mg ONCE ONE Administration Protocol Potassium Bicarbonate 50 meq 02/08/23 20:42 02/08/23 20:51 Potassium Bicarbonate/Cit Ac 25 Meq Tablet.Eff PO 02/08/23 20:43 50 meq ONCE ONE Administration <Kenny Johns MD - Last Filed: 02/09/23 01:11> Medical Decision Making Medical Decision Making [facility] Narrative: Patient has atypical chest pain history of fibromyalgia and chlorthalidone negative ischemic changes on EKG negative high sensitive troponin chest pain elicitable on palpation. Noticed to have slightly low potassium of 2.9 likely from diuretics will give p.o. potassium will start patient on losartan 50 mg daily and asked her to stop chlorthalidone <Kenny Johns MD - Last Filed: 02/09/23 01:11> Lab Data [facility] Lab Attestation statement: I reviewed the patient's lab results. <Kenny Johns MD - Last Filed: 02/09/23 01:11> Result Diagrams: 02/08/23 15:40 02/08/23 15:40 <LIN Regan - Last Filed: 02/08/23 15:17> Labs: Lab Results 02/08/23 02/08/23 02/08/23 Range/Units 15:40 15:40 15:40 WBC 6.0 (4.8-10.8) X10*3/uL RBC 5.38 (4.20-5.50) X10*6/uL Hgb 14.3 (12.0-16.0) g/dl Hct 43.0 (37.0-47.0) % MCV 79.9 L (80.0-98.0) fL MCH 26.6 L (27.0-33.0) pg MCHC 33.3 (31.0-35.0) g/dl RDW 13.9 (11.0-16.0) % Plt Count 300 (160-400) X10*3/uL MPV 11.0 (9.4-12.3) fL Immature Gran % (Auto) 0.2 (0.0-0.4) % Neut % (Auto) 52.2 (45-73) % Lymph % (Auto) 37.9 (20-40) % Geary % (Auto) 6.6 (2-11) % Eos % (Auto) 2.3 (0-4) % Baso % (Auto) 0.8 (0-2) % Lymph # (Auto) 2.3 (1.2-4.9) X10*3/uL Geary # (Auto) 0.4 (0.1-1.2) X10*3/uL Eos # (Auto) 0.1 (0.0-0.4) X10*3/uL Baso # (Auto) 0.1 (0.0-0.2) X10*3/uL Abs Immat Gran (auto) 0.01 (0.00-0.03) X10*3/uL Absolute Neuts (auto) 3.2 (2.0-8.3) x10*3/uL Absolute Nucleated RBC 0.000 (0.0-0.012) X10*3/uL Nucleated RBC % (auto) 0.0 (0.0-0.2) /100WBC Sodium 140 (135-145) mmol/L Potassium 2.9 L (3.3-5.1) mmol/L Chloride 103 (96-108) mmol/L Carbon Dioxide 27 (22-29) mmol/L Anion Gap 13 (12-20) BUN 11 (9-16) mg/dL Creatinine 0.80 (0.5-1.4) mg/dL Estim Creat Clear Calc 86.7 Estimated GFR > 60 Random Glucose 80 (60-115) mg/dL Calcium 10.2 D (8.4-10.2) mg/dL Magnesium 1.9 (1.6-2.6) mg/dL Total Bilirubin 0.8 (0.0-1.0) mg/dL Direct Bilirubin 0.2 (0.0-0.5) mg/dL AST 16 (5-31) U/L ALT 14 (0-31) U/L Alkaline Phosphatase 86 (39-117) U/L Troponin I High Sens < 2.7 (<3.5-17.0) ng/L Total Protein 7.4 (6.5-8.0) g/dL Albumin 4.6 (3.5-5.0) g/dL <LIN Regan - Last Filed: 02/08/23 15:17> Lab Results 02/08/23 02/08/23 02/08/23 Range/Units 15:40 15:40 15:40 WBC 6.0 (4.8-10.8) X10*3/uL RBC 5.38 (4.20-5.50) X10*6/uL Hgb 14.3 (12.0-16.0) g/dl Hct 43.0 (37.0-47.0) % MCV 79.9 L (80.0-98.0) fL MCH 26.6 L (27.0-33.0) pg MCHC 33.3 (31.0-35.0) g/dl RDW 13.9 (11.0-16.0) % Plt Count 300 (160-400) X10*3/uL MPV 11.0 (9.4-12.3) fL Immature Gran % (Auto) 0.2 (0.0-0.4) % Neut % (Auto) 52.2 (45-73) % Lymph % (Auto) 37.9 (20-40) % Geary % (Auto) 6.6 (2-11) % Eos % (Auto) 2.3 (0-4) % Baso % (Auto) 0.8 (0-2) % Lymph # (Auto) 2.3 (1.2-4.9) X10*3/uL Geary # (Auto) 0.4 (0.1-1.2) X10*3/uL Eos # (Auto) 0.1 (0.0-0.4) X10*3/uL Baso # (Auto) 0.1 (0.0-0.2) X10*3/uL Abs Immat Gran (auto) 0.01 (0.00-0.03) X10*3/uL Absolute Neuts (auto) 3.2 (2.0-8.3) x10*3/uL Absolute Nucleated RBC 0.000 (0.0-0.012) X10*3/uL Nucleated RBC % (auto) 0.0 (0.0-0.2) /100WBC Sodium 140 (135-145) mmol/L Potassium 2.9 L (3.3-5.1) mmol/L Chloride 103 (96-108) mmol/L Carbon Dioxide 27 (22-29) mmol/L Anion Gap 13 (12-20) BUN 11 (9-16) mg/dL Creatinine 0.80 (0.5-1.4) mg/dL Estim Creat Clear Calc 86.7 Estimated GFR > 60 Random Glucose 80 (60-115) mg/dL Calcium 10.2 D (8.4-10.2) mg/dL Magnesium 1.9 (1.6-2.6) mg/dL Total Bilirubin 0.8 (0.0-1.0) mg/dL Direct Bilirubin 0.2 (0.0-0.5) mg/dL AST 16 (5-31) U/L ALT 14 (0-31) U/L Alkaline Phosphatase 86 (39-117) U/L Troponin I High Sens < 2.7 (<3.5-17.0) ng/L Total Protein 7.4 (6.5-8.0) g/dL Albumin 4.6 (3.5-5.0) g/dL <Kenny Johns MD - Last Filed: 02/09/23 01:11> Independent Interpretation I performed an independent interpretation of an: EKG <Kenny Johns MD - Last Filed: 02/09/23 01:11> Interpretation: Normal sinus rhythm heart rate 73 beats per minute no acute ST T wave changes no acute ischemia normal axis <Kenny Johns MD - Last Filed: 02/09/23 01:11> Discharge Plan Discharge Clinical Impression: Chest pain, Hypertension, Acute hypokalemia <LIN Regan - Last Filed: 02/08/23 15:17> Patient Disposition: Home, Self-Care <LIN Regan Last Filed: 02/08/23 15:17> Instructions: Chest Pain (ED), Hypokalemia (ED), Hypertension (ED) <LIN Regan Last Filed: 02/08/23 15:17> Additional Instructions: Do not take Chlorthalidone Start taking losartan 50 mg daily for blood pressure control it should be less than 135/85 Have extra bananas/orange juice Follow with PCP to recheck potassium and blood pressure <LIN Regan Last Filed: 02/08/23 15:17> Prescriptions: New losartan 50 mg tablet 50 mg PO DAILY Qty: 30 2RF No Action cephalexin [Keflex] 500 mg capsule 500 mg PO Q8H 7 Days Qty: 21 0RF prednisone 20 mg tablet 60 mg PO DAILY 5 Days Qty: 15 0RF <LIN Regan - Last Filed: 02/08/23 15:17> Interventions: ED Discharge Assessment Last Done: 02/08/23 22:00 <LIN Regan - Last Filed: 02/08/23 15:17> Discharge Date/Time: 02/08/23 22:01 <LIN Regan - Last Filed: 02/08/23 15:17>
[2023-02-08 15:14] VITALS: BP 154/102; PULSE 65; RESP 18; TEMP 36.7; O2SAT 99; BMI 30.2
[2023-02-08 15:47] LABS: MANUAL DIFF FLAG NO
[2023-02-08 15:52] LABS: Basophils Absolute Auto 0.1 X10*3/uL (0.0-0.2); Basophils Percent Auto 0.8 % (0-2); Eosinophils Absolute Auto 0.1 X10*3/uL (0.0-0.4); Eosinophils Percent Auto 2.3 % (0-4); Hemoglobin 14.3 g/dl (12.0-16.0); Imm Gran Abs Auto 0.01 X10*3/uL (0.00-0.03); Imm Gran Pct Auto 0.2 % (0.0-0.4); Lymphocytes Absolute Auto 2.3 X10*3/uL (1.2-4.9); Lymphocytes Percent Auto 37.9 % (20-40); Mean Corpuscular HGB Conc 33.3 g/dl (31.0-35.0); Mean Corpuscular Hemoglobin 26.6 pg (27.0-33.0); Mean Corpuscular Volume 79.9 fL (80.0-98.0); Monocytes Absolute Auto 0.4 X10*3/uL (0.1-1.2); Monocytes Percent Auto 6.6 % (2-11); Neutrophils Absolute Auto 3.2 x10*3/uL (2.0-8.3); Neutrophils Percent Auto 52.2 % (45-73); Platelet Count 300 X10*3/uL (160-400); Red Blood Count 5.38 X10*6/uL (4.20-5.50); Red Cell Distribution Width 13.9 % (11.0-16.0)
[2023-02-08 16:03] LABS: Alanine Aminotransferase 14 U/L (0-31); Albumin Level 4.6 g/dL (3.5-5.0); Alkaline Phosphatase 86 U/L (39-117); Anion Gap 13 (12-20); Aspartate Amino Transferase 16 U/L (5-31); Bilirubin Direct 0.2 mg/dL (0.0-0.5); Bilirubin Total 0.8 mg/dL (0.0-1.0); Blood Urea Nitrogen 11 mg/dL (9-16); Calcium 10.2 mg/dL (8.4-10.2); Carbon Dioxide 27 mmol/L (22-29); Chloride 103 mmol/L (96-108); Creatinine Clr Calc Pharmacy 86.7; Estimated Glomerular Filt Rate > 60; Glucose Random 80 mg/dL (60-115); Magnesium 1.9 mg/dL (1.6-2.6); Potassium 2.9 mmol/L (3.3-5.1); Sodium 140 mmol/L (135-145); Total Protein 7.4 g/dL (6.5-8.0)
[2023-02-08 16:14] LABS: Troponin-I High Sensitivity < 2.7 ng/L (<3.5-17.0)
[2023-02-08 20:00] VITALS: BP 151/92; PULSE 75; RESP 16; TEMP 36.8; O2SAT 100
[2023-02-08] MEDS: Losartan Potassium 50 MG TABLET PO (20:51)
[2023-02-08] MEDS: Potassium Bicarbonate/Cit AC 25 MEQ TABLET.EFF 50 MEQ PO (20:51)
[2023-02-08 21:28] VITALS: BP 125/72; PULSE 78; RESP 16; TEMP 37; O2SAT 100
== END 2023-02-08 22:01 | disposition home or self-care (01) ==
PROVIDERS: Physician Assistant; Emergency Provider Internal Medicine; PCP Internal Medicine Geriatric Medicine
DX: R07.9 Chest pain, unspecified (principal); I10 Essential (primary) hypertension; E87.6 Hypokalemia; Z79.899 Other long term (current) drug therapy
CPT/HCPCS: 36415; 71046; 80048; 80076; 83735; 84484; 85025; 93005; 99283; 99285

== ENCOUNTER 2023-05-16 16:58 | Outpatient (REF) | payer MEDICARE, MEDICAID, SELFPAY ==
[2023-05-16 17:30] LABS: Amphetamine Screen Urine Not Detected (Not Detect); Barbiturates, Urine Not Detected (Not Detect); Benzodiazepines Screen Urine Not Detected (Not Detect); Cannabinoid Screen Urine Not Detected (Not Detect); Cocaine Screen Urine Not Detected (Not Detect); Fentanyl, urine Not Detected (Not Detect); Opiate Screen Urine Not Detected (Not Detect); Phencyclidine Screen Urine Not Detected (Not Detect)
[2023-05-20 09:24] LABS: Oxycodone Screen Urine NEGATIVE
== END 2023-05-16 16:59 | disposition home or self-care (01) ==
LOC: HO.HHCLNP 16:58
PROVIDERS: Visit Provider Internal Medicine Geriatric Medicine
DX: G89.4 Chronic pain syndrome (principal)
CPT/HCPCS: 80307

== ENCOUNTER 2023-12-05 14:12 | Outpatient (REF) | payer MEDICARE, MEDICAID, SELFPAY ==
--- NOTE | ~2023-12-05 | US_ITS ---
EXAMINATION: US THYROID CLINICAL INFORMATION: Goiter. Dysphagia. COMPARISON: Ultrasound soft tissue neck 02/09/2022. Ultrasound-guided thyroid biopsy dated 02/12/2020. Ultrasound soft tissue head/neck thyroid dated 11/27/2019. TECHNIQUE: Linear transducer grayscale and color Doppler examination with attention to the region of the thyroid. FINDINGS: SIZE: Measurements of the thyroid lobes and nodules are given in sagittal, anteroposterior and transverse dimensions respectively. Right Thyroid Lobe: 6.3 x 2.0 x 2.1 cm, volume 13.9 mL. Previously 7.8 x 1.4 x 2.0 cm, volume 11.4 mL. Parenchyma: The gland echotexture is homogeneous. Thyroid vascularity is normal. Left Thyroid Lobe: 5.9 x 1.1 x 2.1 cm, volume 7.1 mL. Previously 5.5 x 1.3 x 2.0 cm, volume 7.5 mL. Parenchyma: The gland echotexture is homogeneous. Thyroid vascularity is normal. Isthmus: 0.4 cm in maximum AP dimension. Previously 0.4 cm. Estimated total number of nodules greater than or equal to 1 cm: 2. [employer] nodules are described as follows: 1. Location: Right inferior. Size: 1.9 x 1.5 x 1.6 cm, volume 2.34 mL. Previously: 1.1 x 1.1 x 1.3 cm, volume 0.82 mL. Nodule characteristics: Composition: Mixed cystic and solid (1). Echogenicity: Hypoechoic (2). Shape: Not taller than wide (0). Margins: Lobulated (2). Echogenic Foci: None (0). ACR TI-RADS total points: 5 ACR TI-RADS category: 4 Significant change in size (>/= 20% in 2 dimensions and minimal increase of 2 mm or 50% or greater increase in volume): Yes 2. Location: Right inferior. Size: 1.1 x 1.2 x 0.8 cm, volume 0.57 mL. Previously: New since the previous study. Nodule characteristics: Composition: Solid (2). Echogenicity: Hypoechoic (2). Shape: Taller than wide (3). Margins: Smooth (0). Echogenic Foci: None (0). ACR TI-RADS total points: 7 ACR TI-RADS category: 5 NODES: No lymphadenopathy is seen in the tissue surrounding the thyroid gland. US/US thyroid IMPRESSION: A new 1.2 cm TR 5 right inferior thyroid nodule and increased size of a 1.8 cm TR 4 right thyroid nodule, both meet criteria for tissue sampling. ACR TI-RADS RECOMMENDATION REFERENCE: Ultrasound-guided fine-needle aspiration, follow up ultrasound, no further followup. * TR1 (0 point) and TR2 (2 points): No FNA or followup * TR3 (3 points): FNA if more than or equal to 2.5 cm in maximum dimension, follow up ultrasound in 1, 3 and 5 years if 1.5 to 2.4 cm in maximum dimension. * TR4 (4-6 points): FNA if more than or equal to 1.5 cm in maximum dimension, follow up ultrasound in 1, 2, 3 and 5 years if 1 to 1.4 cm in maximum dimension. * TR5 (more than or equal to 7 points): FNA if more than or equal to 1 cm in maximum dimension, follow up ultrasound every year for 5 years if 0.5 to 0.9 cm in maximum dimension. * TR3, TR4 or TR5 nodules that are below the size threshold for follow up receive no followup.
[2023-12-05 16:49] LABS: TSH reflex Free T4 0.32 uIU/mL (0.32-4.0)
== END 2023-12-05 14:13 | disposition home or self-care (01) ==
LOC: HO.HMGCX 14:12
PROVIDERS: PCP Internal Medicine Geriatric Medicine; Visit Provider Internal Medicine Geriatric Medicine
DX: E04.9 Nontoxic goiter, unspecified (principal)
CPT/HCPCS: 36415; 76536; 84443

== ENCOUNTER 2023-12-22 12:39 | Outpatient (REF) | payer MEDICARE, MEDICAID, SELFPAY ==
--- NOTE | ~2023-12-22 | US_ITS ---
History: Patient with two right-sided thyroid nodules, TIRADS 4 and TIRADS 5 respectively. Presents for ultrasound-guided fine-needle aspiration. Request is made for biopsy of both nodules. Procedures performed: 1. Ultrasound-guided fine-needle aspiration of TIRADS 4 nodule located in the mid to lower right pole of the thyroid gland. 2. Ultrasound-guided fine-needle aspiration of TIRADS 5 nodule located in the lower pole of the right thyroid gland. Physician: Gerda Bay MD FSIR Anesthesia: 6 mL 1% lidocaine for local anesthesia Specimen: Three 22-gauge FNA samples obtained from each thyroid nodule (6 samples total) and placed in respective formalin and thyrosequence media. Drain: None Estimated blood loss: Minimal Complications: None Procedure in detail: Informed and written consent was obtained. Ultrasound of the right neck demonstrated a larger TIRADS 4 nodule measuring 1.9 x 1.5 x 1.6 cm in the mid to lower pole of the right thyroid gland. Immediately below this and slightly deeper there is a TIRADS 5 nodule measuring 1.1 x 1.2 x 0.8 cm. The overlying skin was prepped and draped. The larger TIRADS 4 nodule was biopsied first from the mid to lower pole of the right thyroid lobe. 1% lidocaine was injected subcutaneously and extended to the edge of this nodule. Next, three 22-gauge FNA samples were obtained under ultrasound guidance with permanent recordings and direct visualization of needle penetration of the nodule. The material was split between formalin and thyrosequence media. Next, we anesthetized the subcutaneous tissues more inferiorly and again obtained three 22-gauge FNA samples under ultrasound guidance with permanent recordings and direct visualization of needle penetration of the TIRADS 5 nodule at the lower pole. The material was split between formalin and thyrosequence media. An overlying sterile dressing was applied. Summary: Successful ultrasound-guided fine-needle aspiration of two right-sided thyroid nodules as described. Pathology is pending.
[2023-12-22] MEDS: Lidocaine HCl 1 % MPF 5 ML VIAL SUBCUT (13:47)
== END 2023-12-22 12:40 | disposition home or self-care (01) ==
LOC: HO.US 12:39
PROVIDERS: PCP Internal Medicine Geriatric Medicine; Visit Provider Internal Medicine Geriatric Medicine
DX: E04.1 Nontoxic single thyroid nodule (principal)
CPT/HCPCS: 10005; 88173; 88305

== ENCOUNTER → 2023-12-22 12:42 | Outpatient (BNV) | payer MEDICARE, MEDICAID, SELFPAY | PROVIDERS: PCP Internal Medicine Geriatric Medicine; Visit Provider Radiology Vascular & Interventional Radiology | DX: E04.2 Nontoxic multinodular goiter (principal) | CPT/HCPCS: 10005; 10006 ==

== ENCOUNTER → 2024-01-09 08:48 | Outpatient (REF) | payer MEDICARE, MEDICAID, SELFPAY | LOC: HO.SL 08:48 | PROVIDERS: PCP Internal Medicine Geriatric Medicine; Visit Provider Internal Medicine Geriatric Medicine | DX: G47.33 Obstructive sleep apnea (adult) (pediatric) (principal); G47.10 Hypersomnia, unspecified; R06.83 Snoring; R40.0 Somnolence | CPT/HCPCS: 95806 ==

== ENCOUNTER → 2024-01-09 19:00 | Outpatient (BNV) | payer MEDICARE, MEDICAID, SELFPAY | PROVIDERS: PCP Internal Medicine Geriatric Medicine; Visit Provider Internal Medicine | DX: R06.83 Snoring (principal) | CPT/HCPCS: 95806 ==

== ENCOUNTER 2024-01-30 08:49 | Outpatient (REF) | payer MEDICARE, MEDICAID, SELFPAY ==
--- NOTE | ~2024-01-30 | FL_ITS ---
EXAMINATION: XR FLUOROSCOPY UPPER GI WITH AIR CLINICAL INFORMATION: Dysphagia COMPARISON: None TECHNIQUE: Fluoroscopic air contrast upper GI examination was performed utilizing standard techniques with thin and thick barium and effervescent granules. Numerous spot images were obtained. FINDINGS: Status post discectomy of C5-C6, with disc prosthesis in place. No mass effect upon the upper esophagus or hypopharyngeal structures. Lateral cine images of the oropharynx and hypopharynx demonstrate normal swallow mechanism with normal epiglottic inversion and soft palate elevation. No tracheal penetration, glottic or subglottic aspiration identified. No nasopharyngeal reflux present. Hypopharyngeal structures appear normal without evidence of mass or diverticulum. There was no significant cricopharyngeal achalasia. Dual and single contrast images of the esophagus demonstrate normal caliber, contour, and mucosal pattern. No evidence of stricture, mass, or ulcerations identified. Esophageal peristalsis was normal. No evidence of hiatus hernia identified. Gastroesophageal reflux is seen up to the midesophagus. Dual contrast and single contrast images of the stomach demonstrated a normal contour. There are multiple tiny foci of contrast pooling in the fundus and body the stomach that may represent small submucosal apthous ulcerations. Contrast freely passed into the gastric antrum and duodenal bulb without delay. Single and air-contrast images of the duodenal bulb demonstrate no abnormality. The duodenal sweep has a normal appearance, course, and mucosal fold appearance. No malrotation. The imaged proximal jejunum has a normal fold pattern and caliber. FLUOROSCOPY TIME: 3 minutes 41 second Number of Spot Images: 9 Number of Cine: 13 DAP 2164 uGy-m2 (microgray-meter squared) FL/FL barium swallow with air IMPRESSION: 1. Status post discectomy of C5-C6. No associated mass effect. 2. Moderate gastroesophageal reflux. 3. Multiple tiny foci of contrast pooling in the fundus and body the stomach that may represent small superficial mucosal ulcerations. Findings likely represent gastritis. Recommend correlation with EGD. This procedure was performed by Kirill Mcarthur PA-C, and supervised by Dr. Valdes
== END 2024-01-30 08:50 | disposition home or self-care (01) ==
LOC: HO.XRAY 08:49
PROVIDERS: PCP Internal Medicine Geriatric Medicine; Visit Provider Internal Medicine Geriatric Medicine
DX: R13.10 Dysphagia, unspecified (principal)
CPT/HCPCS: 74221

== ENCOUNTER → 2024-01-30 08:50 | Outpatient (BNV) | payer MEDICARE, MEDICAID, SELFPAY | PROVIDERS: PCP Internal Medicine Geriatric Medicine; Visit Provider Physician Assistant Surgical | DX: R13.10 Dysphagia, unspecified (principal) | CPT/HCPCS: 74246 ==

== ENCOUNTER 2024-02-14 14:30 | Outpatient (REF) | payer MEDICARE, MEDICAID, SELFPAY ==
[2024-02-14 16:37] LABS: Anion Gap 13 (12-20); Blood Urea Nitrogen 5 mg/dL (9-16); Calcium 9.2 mg/dL (8.4-10.2); Carbon Dioxide 23 mmol/L (22-29); Chloride 107 mmol/L (96-108); Cholesterol 192 mg/dL (<200); Estimated Glomerular Filt Rate > 60; Glucose Random 78 mg/dL (60-115); HDL Cholesterol 67 mg/dL (>40); LDL Cholesterol Calculated 93 mg/dL (<100); Potassium 3.5 mmol/L (3.3-5.1); Sodium 139 mmol/L (135-145); Triglycerides 162 mg/dL (<150)
== END 2024-02-14 14:31 | disposition home or self-care (01) ==
LOC: HO.HHCL 14:30
PROVIDERS: Visit Provider Internal Medicine Geriatric Medicine
DX: I10 Essential (primary) hypertension (principal); Z11.59 Encounter for screening for other viral diseases; Z13.220 Encounter for screening for lipoid disorders; Z11.4 Encounter for screening for human immunodeficiency virus [HIV]
CPT/HCPCS: 36415; 80048; 80061

== ENCOUNTER 2024-08-21 15:20 | Outpatient (REF) | payer MEDICARE, MEDICAID, SELFPAY ==
[2024-08-21 16:05] LABS: MANUAL DIFF FLAG NO
[2024-08-21 16:26] LABS: Basophils Percent Auto 0.7 % (0-2); Eosinophils Absolute Auto 0.1 X10*3/uL (0.0-0.4); Eosinophils Percent Auto 1.8 % (0-4); Hemoglobin 12.9 g/dl (12.0-16.0); Imm Gran Abs Auto 0.01 X10*3/uL (0.00-0.03); Imm Gran Pct Auto 0.2 % (0.0-0.4); Lymphocytes Absolute Auto 2.1 X10*3/uL (1.2-4.9); Lymphocytes Percent Auto 34.5 % (20-40); Mean Corpuscular HGB Conc 33.1 g/dl (31.0-35.0); Mean Corpuscular Hemoglobin 27.1 pg (27.0-33.0); Mean Corpuscular Volume 81.9 fL (80.0-98.0); Mean Platelet Volume 11.4 fL (9.4-12.3); Monocytes Absolute Auto 0.5 X10*3/uL (0.1-1.2); Monocytes Percent Auto 8.1 % (2-11); Neutrophils Absolute Auto 3.3 x10*3/uL (2.0-8.3); Neutrophils Percent Auto 54.7 % (45-73); Platelet Count 244 X10*3/uL (160-400); Red Blood Count 4.76 X10*6/uL (4.20-5.50); Red Cell Distribution Width 13.4 % (11.0-16.0); White Blood Count 6.1 X10*3/uL (4.8-10.8)
[2024-08-21 17:06] LABS: Erythrocyte Sedimentation Rate 5 MM/HR (0-20)
[2024-08-21 17:08] LABS: Rheumatoid Factor < 13.0 IU/mL (<15.0)
[2024-08-21 18:26] LABS: Alanine Aminotransferase 18 U/L (0-31); Albumin Level 4.3 g/dL (3.5-5.0); Alkaline Phosphatase 70 U/L (39-117); Anion Gap 7 (12-20); Aspartate Amino Transferase 19 U/L (5-31); Bilirubin Total 0.9 mg/dL (0.0-1.0); Blood Urea Nitrogen 6 mg/dL (9-16); C Reactive Protein < 0.10 mg/dL (< or = 0.50); Calcium 8.9 mg/dL (8.4-10.2); Carbon Dioxide 27 mmol/L (22-29); Chloride 108 mmol/L (96-108); Estimated Glomerular Filt Rate > 60; Glucose Random 104 mg/dL (60-115); Potassium 3.6 mmol/L (3.3-5.1); Sodium 138 mmol/L (135-145)
[2024-08-23 11:23] LABS: Anti Nuclear Antibody Screen NEGATIVE (NEGATIVE)
== END 2024-08-21 15:21 | disposition home or self-care (01) ==
LOC: HO.HHCL 15:20
PROVIDERS: Visit Provider Nurse Practitioner Family
DX: R07.89 Other chest pain (principal)
CPT/HCPCS: 36415; 80053; 85025; 85652; 86038; 86140; 86431

== ENCOUNTER 2024-08-22 13:16 | Outpatient (REF) | payer MEDICARE, MEDICAID, SELFPAY | END 2024-08-22 13:17 | disposition home or self-care (01) | LOC: HO.HHCLNP 13:16 | PROVIDERS: Visit Provider Nurse Practitioner Family | DX: R07.89 Other chest pain (principal) | CPT/HCPCS: 87338 ==

== ENCOUNTER 2024-10-16 08:05 | Outpatient (REF) | payer MEDICARE, MEDICAID, SELFPAY ==
--- OUTSIDE RECORDS SUMMARY | 2024-10-16 08:11 | XMS_ITS | Data Portability ---
Author Organization LIN Calderon s, [address] Address [address] [place] [address] Assessment No assessment recorded. Plan of Treatment Reminders Order Date Submit Date Provider Last Modified By Organization Details Last Modified Time Details Appointments None recorded. Lab rapid flu (A+B) 2021 022 JOSH 20995_[facility], [address] [place] [address], [address], 14:42:59 urinalysis, dipstick 2021 022 2099_[facility], [address] [place] [address], [address], 14:23:44 test, urine [id number] [place] [address], [address] [place] [address], [address], 14:23:44 culture, urine 2021 022 [place] [facility] ([facility], [address] [place] [address], [place], [address], 19:01:24 urinalysis, dipstick 2022 023 [email or web address] 247 [address], [address] [place], [address], 3 18:55:36 Referral emergency medicine referral 2022 023 [email or web address] Not available 19:03:26 Procedures None recorded. Surgeries None recorded. Imaging XR, chest, 2 view 2021 022 [email or web address] 4 [facility], [address] [facility], [place], [address], 15:11:56 electrocard iogram 2022 023 [email or web address] [address], [address] [facility], [place], [address], 19:03:26 Medication Orders Diflucan 200 mg tablet 2021 023 [id number] [address] [place] [address], [address], 17:59:03 prednisone 10 mg tablet 2021 023 [id number], [address] [place], [address], 17:58:55 benzonatate 200 mg capsule 2021 023 [id number], [address] [place] [address], [address], 17:59:07 Patient TargetsNo targets recorded. Patient Instructions Encounter Date Encounter Id Patient Instructions Last Modified By Organization Details Last Modified Time 02/04/2023 [id number] numbness and tingling: care instructions [email or web address] Not available 02/04/2023 18:55:36 Based on your history, symptoms, exam and studies done here my recommendation is for you to go immediately to the Emergency Room. The ER is better equipped and has additional resources to be able to evaluate you to make sure that your complaint is not life threatening. Unfortunately, in the urgent care setting we do not have the ability to do this level of tests and studies. My concern is for your wellbeing, which is why my recommendation is the Emergency Room. I recommend that you go directly there from here and that you do not eat or drink anything until you have been evaluated by the ER and cleared by them to eat or drink. [email or web address] Not available 02/26/2023 08:22:51 Reason for Referral Emergency Medicine Referral for Left hemiparesis Referring Physician: [facility], Encounter Date: 02/04/2023 Results Created Date Observation Date Name Description Value Unit Range Abnormal Flag Note LastModifiedBy Organization Detail LastModifiedTime 09/07/20 22 09/09/2022 URINE CULTU RE, JEFFREY NE urine culture, routine Final report Not Available [facility] ([facility]) [address] [facility], [place], [address], 09/09/2022 06:07:23 09/07/20 22 09/09/2022 URINE CULTU REJEFFREY result 1 No growth Not Available [facility] ([facility]) [address] [facility], [place], [address], 09/09/2022 06:07:23 09/07/20 22 09/07/2022 rapid flu (A+B) Unknown Analyte negati ve Not Available cornelius [address], [address], 09/07/2022 14:18:59 09/07/20 22 09/07/2022 rapid flu (A+B) Unknown Analyte negati ve Not Available cornelius [address], [address], 09/07/2022 14:18:59 09/07/20 22 09/07/2022 pregn fay test, urine Unknown Analyte negati ve Not Available cornelius [address], [address], 09/07/2022 14:11:54 09/07/20 22 09/07/2022 urina lysis , dipst ick Unknown Analyte Dark Yellow Not Available _cornel[address] [place], [address], 09/07/2022 14:05:04 09/07/20 22 09/07/2022 urina lysis , dipst ick Unknown Analyte clear Not Available whitney [address], [place], [address], 09/07/2022 14:05:04 09/07/20 22 09/07/2022 urina lysis , dipst ick Unknown Analyte Negati ve Not Available cornelius peralta [address], [place], [address], 09/07/2022 14:05:04 09/07/20 22 09/07/2022 urina lysis , dipst ick Unknown Analyte Small Not Available whitney [address], [place], [address], 09/07/2022 14:05:04 09/07/20 22 09/07/2022 urina lysis , dipst ick Unknown Analyte >=160 mg/dL Not Available cornelius peralta [address], [place], [address], 09/07/2022 14:05:04 09/07/20 22 09/07/2022 urina lysis , dipst ick Unknown Analyte 1.025 Not Available whitney [address], [place], [address], 09/07/2022 14:05:04 09/07/20 22 09/07/2022 urina lysis , dipst ick Unknown Analyte Negati ve Not Available cornelius per[address], [place], [address], 09/07/2022 14:05:04 09/07/20 22 09/07/2022 urina lysis , dipst ick Unknown Analyte 6.5 Not Available whitney [address], [place], [address], 09/07/2022 14:05:04 09/07/20 22 09/07/2022 urina lysis , dipst ick Unknown Analyte 15 mg/dL Not Available cornelius per[address], [place], [address], 09/07/2022 14:05:04 09/07/20 22 09/07/2022 urina lysis , dipst ick Unknown Analyte 1.0 E.U./d L Not Available cornelius per[address], [place], [address], 09/07/2022 14:05:04 09/07/20 22 09/07/2022 urina lysis , dipst ick Unknown Analyte Negati ve Not Available cornelius [address], [place], [address], 09/07/2022 14:05:04 09/07/20 22 09/07/2022 urina lysis , dipst ick Unknown Analyte Negati ve Not Available cornelius per[address], [place], [address], 09/07/2022 14:05:04 02/05/20 23 02/04/2023 urina lysis , dipst ick Unknown Analyte Normal = light yellow Not Available [facility] [address] [place], [address], 02/04/2023 18:13:59 02/05/20 23 02/04/2023 urina lysis , dipst ick Unknown Analyte Yellow Not Available _ [address] [place], [address], 02/04/2023 18:13:59 02/05/20 23 02/04/2023 urina lysis , dipst ick Unknown Analyte Normal = clear Not Available _[facility] [place], [address], 02/04/2023 18:13:59 02/05/20 23 02/04/2023 urina lysis , dipst ick Unknown Analyte Clear Not Available _ [facility] [address] [place], [address], 02/04/2023 18:13:59 02/05/20 23 02/04/2023 urina lysis , dipst ick Unknown Analyte Normal = negati ve Not Available _[address] [place], [address], 02/04/2023 18:13:59 02/05/20 23 02/04/2023 urina lysis , dipst ick Unknown Analyte Negati ve Not Available _[address] [place], [address], 02/04/2023 18:13:59 02/05/20 23 02/04/2023 urina lysis , dipst ick Unknown Analyte Normal = Negati ve Not Available _[facility] [address] [place], [address], 02/04/2023 18:13:59 02/05/20 23 02/04/2023 urina lysis , dipst ick Unknown Analyte Negati ve Not Available _[address] [place], [address], 02/04/2023 18:13:59 02/05/20 23 02/04/2023 urina lysis , dipst ick Unknown Analyte Normal = Negati ve Not Available _[address] [place], [address], 02/04/2023 18:13:59 02/05/2002/04/2023 urina lysis , dipst ick Unknown Analyte Negati ve Not Available _[address] [place], [address], 02/04/2023 18:13:59 02/05/20 23 02/04/2023 urina lysis , dipst ick Unknown Analyte Normal = 1.010, 1.015, 1.020 Not Available _[address] [place], [address], 02/04/2023 18:13:59 02/05/20 23 02/04/2023 urina lysis , dipst ick Unknown Analyte <=1.00 5 Not Available [facility] [address] [place], [address], 02/04/2023 18:13:59 02/05/20 23 02/04/2023 urina lysis , dipst ick Unknown Analyte Normal = Negati ve Not Available [address] [place], [address], 02/04/2023 18:13:59 02/05/20 23 02/04/2023 urina lysis , dipst ick Unknown Analyte Negati ve Not Available [address] [place], [address], 02/04/2023 18:13:59 02/05/20 23 02/04/2023 urina lysis , dipst ick Unknown Analyte Normal = 6.5, 7.0, 7.5, 8.0 Not Available _[address] [place], [address], 02/04/2023 18:13:59 02/05/20 23 02/04/2023 urina lysis , dipst ick Unknown Analyte 6.5 Not Available [facility] [address] [place], [address], 02/04/2023 18:13:59 02/05/2002/04/2023 urina lysis , dipst ick Unknown Analyte Normal = Negati ve Not Available _[address] [place], [address], 02/04/2023 18:13:59 02/05/20 23 02/04/2023 urina lysis , dipst ick Unknown Analyte Negati ve Not Available _[address] [place], [address], 02/04/2023 18:13:59 02/05/20 23 02/04/2023 urina lysis , dipst ick Unknown Analyte Normal = 0.2, 1.0 Not Available [address] [place], [address], 02/04/2023 18:13:59 02/05/20 23 02/04/2023 urina lysis , dipst ick Unknown Analyte 0.2 E.U./d L Not Available _[address] [place], [address], 02/04/2023 18:13:59 02/05/2002/04/2023 urina lysis , dipst ick Unknown Analyte Normal = Negati ve Not Available _[address] [place], [address], 02/04/2023 18:13:59 02/05/20 23 02/04/2023 urina lysis , dipst ick Unknown Analyte Negati ve Not Available [address] [place], [address], 02/04/2023 18:13:59 02/05/20 23 02/04/2023 urina lysis , dipst ick Unknown Analyte Normal = Negati ve Not Available _[address] [place], [address], 02/04/2023 18:13:59 02/05/20 23 02/04/2023 urina lysis , dipst ick Unknown Analyte Negati ve Not Available _[address] [place], [address], 02/04/2023 18:13:59 09/07/20 22 09/07/2022 XR, chest , 2 view No observ ation record ed. [facility] [address] [place], [address], 09/07/2022 22:15:50 09/08/20 XR, chest , 2 view No observ ation record ed. [facility] [address] [place], [address], 09/08/2022 18:55:37 02/05/20 23 02/04/2023 elect gallito elizabeth am No observ ation record ed. [facility] [address] [place], [address], 02/04/2023 18:55:39 Result Notes None recorded. 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 Procedures Surgical History Date Name Laterality Status Provider Name and Address Organization Details Recorded Time Blank Template completed LIN BAKER [address], [place], [address], PA - [facility] 09/07/2022 14:59:53 procedure on back completed AFSHIN POMPA PA - [facility] 09/07/2022 13:44:55 ligation of fallopian tube completed AFSHIN POMPA PA - [facility] 09/07/2022 13:45:23 Imaging Results Imaging Date Name Status LastModified by Organization Details LastModified Time 09/07/2022 XR, chest, 2 view completed [email or web address] [facility] [address] [place], [address], 09/07/2022 22:15:50 09/08/2022 XR, chest, 2 view completed [facility] [address] [place], [address], 09/08/2022 18:55:37 02/04/2023 electrocardiogram completed JOSH [address] [place], [address], 02/04/2023 18:55:39 Procedure Notes None recorded. Medical Equipment None Reported. Allergies Allergen ID Allergen Name Allergen Category Reaction Reaction Severity Criticality Documentation Date Start Date Code Code System Note Provider Name and Address Organization Details Recorded Time 16936 baclofen medicatio n hives tachycard ia Not available Not available Not available 09/07/2022 1292 RxNorm AFSHIN PERALESEY null, PA - [facility] 2 13:41:41 05957 Compazine medicatio n hives tachycard ia Not available Not available Not available 09/07/202208839 6 RxNorm AFSHIN POMPA null, PA - [facility] 2 13:41:55 50052 Zofran medicatio n hives tachycard ia Not available Not available Not available 09/07/2022 08192 RxNorm AFSHIN POMPA null, PA - [facility] 12/06/202 2 13:42:11 74875 Reglan medicatio n hives tachycard ia Not available Not available Not available 09/07/2022 9230 RxNorm AFSHINSHAKIR POMPA null, PA - [facility] 2 13:42:34 50158 lorazepam medicatio n dyspnea Not available Not available 09/07/2022 6470 RxNorm AFSHIN POMPA null, PA - [facility] 2 13:42:45 86730 latex environme nt,medica tion angioedem a hives Not available Not available Not available 09/07/2022 34928 91 RxNorm AFSHINSHAKIR POMPA null, PA - [facility] 2 13:43:09 50737 Non-stero idal anti-infl ammatory agent (product) medicatio n hives swelling Not available Not available Not available 09/07/2022 79989 005 SNOMED AFSHIN POMPA null, PA - [facility] 2 13:43:21 Medications Name Sig Start Date Stop Date Status Note LastModified by Organization Details LastModified Time prednisone 10 mg tablet 3 pills po qd x 3 days, 2 pills po qd x 3 days, 1 pill po qd x 3 days 02/04 completed Not Available Not Available Not Available cetirizine 10 mg tablet TAKE 1 TABLET BY MOUTH IN THE MORNING. NEEDED FOR ALLERGIES active Not Available Not Available No t Available benzonatat e 200 mg capsule TAKE 1 CAPSULE BY MOUTH THREE TIMES A DAY active Not Available Not Available No t Available fluconazol e 200 mg tablet TAKE 1 TABLET BY MOUTH EVERY WEEK active Not Available Not Available No t Available clonazepam 0.5 mg tablet PLEASE SEE ATTACHED FOR DETAILED DIRECTION S active Not Available Not Available No t Available sumatripta n 50 mg tablet TAKE 1 TABLET BY MOUTH 1 TIME IF NEEDED FOR MIGRAINE FOR UP TO 1 DOSE active Not Available Not Available No t Available amlodipine 2.5 mg tablet TAKE 1 TABLET BY MOUTH IN THE MORNING active Not Available Not Available No t Available chlorthali done 25 mg tablet TAKE 1 TABLET BY MOUTH EVERY DAY active Not Available Not Available No t Available valacyclov ir 500 mg tablet TAKE 1 TABLET BY MOUTH EVERY DAY active Not Available Not Available No t Available doxycyclin e monohydrat e 100 mg tablet TAKE 1 TABLET (ORAL) 2 TIMES PER DAY FOR 7 DAYS FOR INFECTION active Not Available Not Available No t Available oxycodone- acetaminop hen 5 mg-325 mg tablet TAKE 1 TABLET BY MOUTH, EVERY 12 HOURS NEEDED FOR SEVERE PAIN, BACK SPASMS active Not Available Not Available No t Available oseltamivi r 75 mg capsule TAKE 1 CAPSULE (75 MG) BY MOUTH IN THE MORNING AND 1 CAPSULE IN THE EVENING. DO ALL THIS FOR 5 DAYS active Not Available Not Available No t Available gabapentin 300 mg capsule TAKE 1 CAPSULE (300 MG TOTAL) BY MOUTH NIGHTLY. IN ADDITION TO DAYTIME DOSES active Not Available Not Available No t Available gabapentin 100 mg capsule TAKE 1 CAPSULE BY MOUTH THREE TIMES A DAY active Not Available Not Available No t Available fluticason e propionate 50 mcg/actuat ion nasal spray,susp ension SPRAY 1 - 2 SPRAY BY INTRANASA L ROUTE EVERY DAY IN EACH NOSTRIL NEEDED active Not Available Not Available No t Available Ventolin HFA 90 mcg/actuat ion aerosol inhaler INHALE 2 PUFFS EVERY 4 HOURS NEEDED active Not Available Not Available No t Available chlorthali done active Has not taken in 4-5 days Not Available Not Available Not Available Percocet active Not Available Not Avai lable Not Available diclofenac 1 % topical gel APPLY TOPICALLY 2-4 TIMES PER DAY TO AFFECTED AREA NEEDED FOR PAIN active Not Available Not Available No t Available naloxone 4 mg/actuati on nasal spray PLEASE SEE ATTACHED FOR DETAILED DIRECTION S active Not Available Not Available No t Available Vitals Date Recorded Body height Body mass index (BMI) Body weight Oxygen saturation Oxygen saturation in Arterial blood by Pulse oximetry Heart rate Respiratory rate Body temperature Systolic blood pressure Diastolic blood pressure Provider Name and Address Organization Details Last Updated DateTime 3 157.48 cm 28.5 kg/m2 14151.4 1 g 98 % 98 % 64 /min 18 /min 97.6 [degF] 170 mm[Hg] 90 mm[Hg] BRENTON VASQUES RA PA - [facility] 3 18:00:30 Date Recorded Body height Body mass index (BMI) Body weight Oxygen saturation Oxygen saturation in Arterial blood by Pulse oximetry Heart rate Respiratory rate Body temperature Systolic blood pressure Diastolic blood pressure Provider Name and Address Organization Details Last Updated DateTime 2 157.48 cm 28.5 kg/m2 34565.4 1 g 98 % 98 % 63 /min 18 /min 97.9 [degF] 194 mm[Hg] 94 mm[Hg] AFSHIN POMPA PA - [facility] 13:47:04 Date Recorded Systolic blood pressure Diastolic blood pressure Provider Name and Address Organization Details Last Updated DateTime 09/07/2022 150 mm[Hg] 92 mm[Hg] LALO KAPIL PA - [facility] 09/07/2022 15:08:39 Social History Question Answer Notes LastModified by Organizat ion Details LastModified Time Tobacco Smoking Status Never Smoker AFSHIN POMPA vinicius PA - [facility] 09/07/2022 13:45:43 What Is Your Level Of Alcohol Consumption? Occasional [email or web address] Information not available 09/07/2022 Do You Use Any Illicit Or Recreational Drugs? No [email or web address] Information not available 09/07/2022 Have You Recently Traveled Abroad? No [email or web address] Information not available 09/07/2022 Do You Or Have You Ever Used Any Other Forms Of Tobacco Or Nicotine? No Information not available 09/07/2022 Sex: Unknown Functional Status None recorded. Mental Status None recorded. Family History Relationship Description Onset Age of this Age Resolved Age Notes LastModified by Organization Details LastModified Time Father No current problems or disability Not available 09/07 13:44:41 Mother No current problems or disability [email or web address] Not available 09/07 13:44:41 Medical History No medical history recorded. Gynecological History Statement/Question Response Date of LMP 01/14/2023 Is there any chance of ? No LMP Approximate Obstetrics History GPAL:G 0 P 0 0 0 0 Past Encounters Encounter ID Performer Location Encounter Start Date Encounter Closed Date Diagnosis/Indication Diagnosis SNOMED-CT Code Diagnosis ICD10 Code Diagnosis Note [id number] [address] [place] [address] 11/03/2021 18:56:43 11/03/2021 20:13:22 [id number] [address] [address] 11/27/2018 16:55:25 11/27/2018 17:32:56 [id number] [address] [address] 01/30/2020 15:22:17 01/30/2020 15:52:28 [id number] [address] [address] [address] 11/20/2018 10:57:34 11/20/2018 11:29:01 [id number] [address] [address] [address] 11/23/2019 15:50:09 11/23/2019 17:21:20 [id number] [address] [address] 08/16/2022 10:52:47 08/16/2022 12:21:15 [id number] LIN BAKER [address] [address] 09/07/2022 13:31:09 09/07/2022 15:11:56 Cough 30255018 R05.9 Wheezing right lower quadrant - cough over 3 weeks. Candidiasis of vagina 72 401905 B37.31 Hypertensive disorder 38 044543 I10 Your blood pressure was elevated today - you need to follow up with your PCP for this. Medication may need to be adjusted. Please keep a journal of AM and PM readings from a home cuff. This will help adjust medication s. Acute bronchitis 7515910 2 J20.9 [id number] MARILYNN DUNCAN [place] [address] [facility] [address] [place] [address] 02/04/2023 17:52:28 02/04/2023 19:03:25 Lightheadedness 270782265 R42 Left hemiparesis 4977433 00 G81.90 Health Concerns Section Related Observation LastModified by Organization Detai ls LastModified Time None Recorded Concern Status LastModified by Organization Details LastModified Time None Recorded Advance Directives Directive None Recorded Payers Encounter Date Sequence Insurance Name Policy Number Policy Stinson Covered Member ID Stinson Member ID Guarantor Name 01/30/2020 1 [place] [employer] Karena Nayak [id number] Karena Nayak 11/03/2021 1 [place] [employer] Karena Pamela Nayak [id number] Karena Nayak 11/03/2021 2 [place] [facility] Karena Santiago Nayak [id number] Karena Nayak 08/16/2022 1 [place] [facility] Karena Pamela Nayak [id number] Karena Nayak 08/16/2022 2 [place] [facility] Karena M Nayak [id number] Karena Nayak 09/07/2022 1 [place] [facility] Karena M Nayak [id number] Karena Nayak 09/07/2022 2 [place] [facility] Karena Santiago Nayak [id number] Karena Nayak 02/04/2023 1 [place] [facility] Karena Santiago Nayak [id number] Karena Nayak 02/04/2023 2 [place] [facility] Karena Santiago Nayak [id number] Karena Nayak Notes Date Note Type Note Provider Name and Address Organization Details Recorded Time 2 text/html CoughReported bypatient.source of patient informationInformation obtained from patient; Patient arrived at Urgent Care ambulatory Quality:harsh;productive cough Severity:worsening Duration:symptoms lasting over 2 weeks Associated Symptoms:no nausea; no vomiting;fever;chills;wheez ing;post nasal drip;hurts to breathNotes:The patient had COVID over 1 month ago - led into a Cough and was seen here. Was RXd antibiotics - and she finished the full course. Just seems like she can't get over the symptoms. The patient reports that feels terrible in the last few days. Fever, body aches, Congestion. Family members tested positive for COVID last week. She was around them. Allergic to Eggs so no flu vaccine. The patient is also having cloudy urine and white vaginal discharge. Is prone to yeast infections after antibiotics. Also has been taking albuterol in LIN BAKER [facility] [place], [address], PA - [facility] 09/07/2022 15:11:28 05/05/202 3 text/html 42 yr old female presents with acute onset of left arm numbness and syncope x ~ 3 hours. She denies chest pain, palpitations, SOB, dizziness, N/V/D/ rashes, recent illness, or sick contacts. No hx of this happening before. MARILYNN DUNCAN MD [address] [facility], [address], PA - [facility] 02/26/2023 08:23:08 OBGyn Episode No OBEpisode recorded.
== END 2024-10-16 08:06 | disposition home or self-care (01) ==
LOC: HO.MAMMO 08:05
PROVIDERS: PCP Internal Medicine Geriatric Medicine; Visit Provider Internal Medicine Geriatric Medicine
DX: Z12.31 Encounter for screening mammogram for malignant neoplasm of breast (principal)
CPT/HCPCS: 77063; 77067

== ENCOUNTER → 2024-10-16 08:08 | Outpatient (BNV) | payer MEDICARE, MEDICAID, SELFPAY | PROVIDERS: PCP Internal Medicine Geriatric Medicine; Visit Provider Internal Medicine | DX: Z12.31 Encounter for screening mammogram for malignant neoplasm of breast (principal) | CPT/HCPCS: 77063; 77067 ==

== ENCOUNTER → 2024-11-02 07:46 | Outpatient (BNV) | payer MEDICARE, MEDICAID, SELFPAY | PROVIDERS: PCP Internal Medicine Geriatric Medicine; Visit Provider Radiology Diagnostic Radiology | DX: M54.2 Cervicalgia (principal) | CPT/HCPCS: 72141 ==

== ENCOUNTER 2024-11-02 07:55 | Outpatient (REF) | payer MEDICARE, MEDICAID, SELFPAY ==
--- NOTE | ~2024-11-02 | MR_ITS ---
EXAMINATION: MR CERVICAL SPINE WITHOUT CONTRAST CLINICAL INFORMATION: Severe neck pain with radiation to shoulders and upper chest, arm weakness bilaterally. History of C5-6 fusion 8 years prior. COMPARISON: 07/14/2020 MR cervical. TECHNIQUE: Multiplanar multisequence MR imaging of the cervical spine was done prior to and without the administration IV gadolinium. Examination was performed on a 1.5 Nicole Siemens unit, using standard sequences. FINDINGS: CORONAL ALIGNMENT: -There is a minimal levoconvex scoliosis. SAGITTAL ALIGNMENT: -Straightening of the normal lordosis and minimal reversal centered at C3-4. -There are no subluxations. CRANIOCERVICAL JUNCTION/C1-2 ARTICULATIONS: -Intact and aligned. VERTEBRAL BODIES/BONE MARROW: -There has been prior anterior fusion of C5-6 with hardware which creates moderate localized susceptibility artifact, appearing immediately adjacent soft tissue and bone. No adjacent bone marrow edema. -There is no vertebral body edema, endplate edema, compression deformity, or suspicious bone lesion. DISCS: -Mild loss of disc height and signal C4-5. -Disc prostheses C5-6. -Minimal loss of signal C2-3, and C6-7, without significant disc height loss. CERVICAL CORD: -Normal in signal and caliber throughout. There are no regions of cord impingement, expansion, thinning. Preserved CSF surrounds the cord at all levels. PARAVERTEBRAL SOFT TISSUES: -No prevertebral soft tissue edema oriented abnormality. -Imaged paravertebral soft tissues appear normal. The thyroid is obscured by a saturation band. VISUALIZED INTRACRANIAL STRUCTURES: -Normal in appearance. Normal vertebral artery flow voids. AXIAL DISC SPACE IMAGING: C2-C3: No central canal or foraminal narrowing. C3-C4: Mild uncinate spurring bilaterally. No focal disc pathology. Facets appear normal. There is mild left and moderate right neural foraminal narrowing. No change. C4-C5: There is a shallow concentric disc bulge with a superimposed very subtle left paracentral disc protrusion. This indents upon the ventral thecal sac but does not contact the cord or result in significant central canal or lateral recess narrowing. Previously seen annular fissuring is not seen. Mild right greater than left uncinate spurs. Normal facets. Minimal central canal narrowing, mild left, and moderate right neural foraminal narrowing. No change. C5-C6: Shallow disc osteophytic ridge complex, minimally indents upon the ventral thecal sac but does not contact the cord or result in significant central canal narrowing. Lateral recesses are patent. Mild uncinate spurring bilaterally. Normal facets. There is mild to moderate left and mild right neural foraminal narrowing. No change. C6-C7: Mild degenerative facet spurring. No disc pathology. No significant central canal or neural foraminal narrowing. No change. C7-T1: Mild right facet spurring is present, with mild right uncinate spurring. This contributes to mild to moderate right neural foraminal narrowing. No left neural foraminal narrowing. No central canal narrowing. No change. MR/MR cervical spine wo con IMPRESSION: 1. No significant interval change. Mild cervical spondylosis. Prior fusion C5-C6 with hardware. Straightening of the normal lordosis. 2. No evidence of cord impingement, signal abnormality, or significant central canal narrowing. 3. Scattered low-grade neural foraminal narrowings, without change. Most significant is moderate narrowing on the right at C3-4 and C4-5. Electronically signed by: Cas Valdes MD 11/02/2024 09:05 AM LAM OLIVO
--- OUTSIDE RECORDS SUMMARY | 2024-11-02 07:58 | XMS_ITS | Encounter Summary ---
Author Organization [email or web address] Address [address] [place] [address] Care Team Providers Care Litigation Partner Name Role Phone Name, Gold WADE Primary Care Provider [phone] Reason for Visit * Reason Onset Date Comments Nurse Triage 09/12/2023 Encounter Details Date Type Department Care Team ([facility] st Contact Info) Description 09/12/2023 Telephone [facility] MEDICINE [address] [place], [place] [id number] Name, MD Gold [address] [place] [address] Nurse Triage Social History Tobacco Use Types Packs/Day Years Used Date Smoking Tobacco: Never Smokeless Tobacco: Never Alcohol Use Standard Drinks/Week Comments Yes 0 (1 standard drink = 0.6 oz pur e alcohol) occassionally Depression Answer Date Recorded Patient Health Questionnaire-9 Score 25 04/12/2023 Housing Stability Answer Date Recorded What is your housing situation today? I have [place] ackerman 08/08/[address] you li ve. Do you have problems with any of the following? None of the above 08/08/2023 Food Insecurity Answer Date Recorded Within the past 12 months, y ou worried that your food would run out before you got money to buy more: Never True 08/08/2023 Within the past 12 months,th e food you bought just didn't last and you didn't have enough money to get more: Never True 03/2023 Transportation Answer Date Recorded In the past 12 months, has l ack of transportation kept you from medical appts, meetings, work or from getting things needed for daily living? No 08/08/2023 Utilities Answer Date Recorded In the past 12 months, has t he electric, gas, oil or water company threatened to shut off services in your home? No 08/08/2023 Depression Answer Date Recorded Patient Health Questionnaire-2 Score 6 04/12/2023 Comments Unknown Sex and Gender Information Value Date Recorded Sex Assigned at Female 08/02/2022 10:21 AM EDT Legal Sex Female 10:21 AM EDT Gender Identity Female 08/02/2022 10:21 AM EDT Sexual Orientation Straight 08/02/2022 10 :21 AM EDT documented as of this encounter Miscellaneous Notes * Telephone Encounter - Lona Cedeno RN - 09/12/2023 1:55 PM EST Call to Karena Nayak, reports has hx of anxiety. Per pt having difficulty with sleeping, feelingnervous, decreased appetite. Pt not on Seroquel or clonazepam. Per pt had a few clonazepam and tookone last night. Per pt Seroquel last taken 1 month ago. Per pt having increased stressors at home, needs to find a new place to say and having some issues with mice in the home. Pt denies any SI/HI. Pt not yet enrolled with any Outpatient therapy. Pt would like to be restarted on medication, and referred again fro services. PT advise of disposition, agrees to [facility] tomorrow as PCP will be covering. Nothing with PCP in clinic within 2 weeks or with other providers. Reviewed operating hours and that wait times vary. Reviewed home care advise and reasons to call back. Protocol Used: Anxiety and Panic Attack (Adult) Protocol-Based Disposition: See in Office or Video Visit within 3 Days Sent to PCP as FYI. Video visit offer not recorded Positive Triage Question: * Moderate anxiety (e.g., persistent or frequent anxiety symptoms; interferes with sleep, school, or work) * All higher-acuity triage questions were negative Care Advice Discussed: * Note to Triager - Anxiety Symptoms * Avoid Caffeine * Avoid Triggers of Anxiety * Reasons To Call Back - Anxiety or panic attacks continue - You feel like harming yourself - You become worse * Telephone Encounter - Tiffany Merrill - 09/12/2023 1:44 PM EST Symptom: Anxiety or Panic Attack Outcome: Schedule an urgent appointment (within 4 hours) or talk to a nurse or provider soon Reason: Anxiety keeps from normal daily activities (such as school or work) The caller accepted this outcome Pt states is not in a good place! Please contact pt @ [phone] documented in this encounter Plan of Treatment Not on file documented as of this encounter Visit Diagnoses Not on filedocumented in this encounter Additional Health Concerns Assessment Noted Time PHQ-9 Depression Total Score: 25 023 2:19 PM EDT documented as of this encounter Care Teams Litigation Partner Relationship Specialty Start Date End Date Name, MD Gold [address] [place] [address] PCP - General Family Medicine 02/02/16 documented as of this encounter
--- OUTSIDE RECORDS SUMMARY | 2024-11-02 07:58 | XMS_ITS | Data Portability ---
Author Organization LIN Calderon s, [address] Address [address] [place] [address] Assessment No assessment recorded. Plan of Treatment Reminders Order Date Submit Date Provider Last Modified By Organization Details Last Modified Time Details Appointments None recorded. Lab rapid flu (A+B) 2021 022 JOSH 20995_[facility], [address] [place] [address], [address], 14:42:59 urinalysis, dipstick 2021 022 [email or web address] 2099_[facility], [address] [place] [address], [address], 14:23:44 test, urine 2021 [id number] [place] [address], [address] [place] [address], [address], 14:23:44 culture, urine 2021 022 [place]ON [facility] ([facility], [address] [place] [address], [place], [address], 19:01:24 urinalysis, dipstick 2022 023 [email or web address] 247 [address], [address] [place], [address], 3 18:55:36 Referral emergency medicine referral 2022 023 [email or web address] Not available 19:03:26 Procedures None recorded. Surgeries None recorded. Imaging XR, chest, 2 view 2021 022 [email or web address] 4 [facility], [address] [facility], [place], [address], 15:11:56 electrocard iogram 2022 023 [email or web address] [address], [address] [facility], [place], [address], 19:03:26 Medication Orders Diflucan 200 mg tablet 2021 023 [id number], [address] [place] [address], [address], 17:59:03 prednisone 10 mg tablet 2021 023 [id number], [address] [place], [address], 17:58:55 benzonatate 200 mg capsule 2021 023 [id number], [address] [place] [address], [address], 17:59:07 Patient TargetsNo targets recorded. Patient Instructions Encounter Date Encounter Id Patient Instructions Last Modified By Organization Details Last Modified Time 02/04/2023 [id number] numbness and tingling: care instructions [email or web address] Not available 02/04/2023 18:55:36 Based on your [...] cleared by them to eat or drink. [email or web address] Not available 02/26/2023 08:22:51 Reason for Referral Emergency Medicine Referral for Left hemiparesis Referring Physician: [facility], Encounter Date: 02/04/2023 Results Created Date Observation Date Name Description Value Unit Range Abnormal Flag Note LastModifiedBy Organization Detail LastModifiedTime 09/07/20 22 09/09/2022 URINE CULTU RE, JEFFREY NE urine culture, routine Final report Not Available [facility] ([facility]) [address] [facility], [place], [address], 09/09/2022 06:07:23 09/07/20 22 09/09/2022 URINE CULTU REJEFFREY result 1 No growth Not Available [facility] ([facility]) [address] [facility], [place], [address], 09/09/2022 06:07:23 09/07/20 22 09/07/2022 rapid flu (A+B) Unknown Analyte negati ve Not Available cornelius [address], [address], 09/07/2022 14:18:59 09/07/20 22 09/07/2022 rapid flu (A+B) Unknown Analyte negati ve Not Available cornelius [address], [address], 09/07/2022 14:18:59 09/07/20 22 09/07/2022 pregn fay test, urine Unknown Analyte negati ve Not Available cornelius [address], [address], 09/07/2022 14:11:54 09/07/20 22 09/07/2022 urina lysis , dipst ick Unknown Analyte Dark Yellow Not Available _cornelius [address] [place], [address], 09/07/2022 14:05:04 09/07/20 22 09/07/2022 urina lysis , dipst ick Unknown Analyte clear Not Available whitney [address], [place], [address], 09/07/2022 14:05:04 09/07/20 22 09/07/2022 urina lysis , dipst ick Unknown Analyte Negati ve Not Available cornelius per[address], [place], [address], 09/07/2022 14:05:04 09/07/20 22 09/07/2022 urina lysis , dipst ick Unknown Analyte Small Not Available whitney [address], [place], [address], 09/07/2022 14:05:04 09/07/20 22 09/07/2022 urina lysis , dipst ick Unknown Analyte >=160 mg/dL Not Available cornelius per[address], [place], [address], 09/07/2022 14:05:04 09/07/20 22 09/07/2022 urina lysis , dipst ick Unknown Analyte 1.025 Not Available whitney [address], [place], [address], 09/07/2022 14:05:04 09/07/20 22 09/07/2022 urina lysis , dipst ick Unknown Analyte Negati ve Not Available cornelius per[address], [place], [address], 09/07/2022 14:05:04 09/07/20 22 09/07/2022 urina lysis , dipst ick Unknown Analyte 6.5 Not Available whitney [address], [place], [address], 09/07/2022 14:05:04 09/07/20 22 09/07/2022 urina lysis , dipst ick Unknown Analyte 15 mg/dL Not Available cornelius per[address], [place], [address], 09/07/2022 14:05:04 09/07/20 22 09/07/2022 urina lysis , dipst ick Unknown Analyte 1.0 E.U./d L Not Available cornelius per[address], [place], [address], 09/07/2022 14:05:04 09/07/20 22 09/07/2022 urina lysis , dipst ick Unknown Analyte Negati ve Not Available cornelius [address], [place], [address], 09/07/2022 14:05:04 09/07/20 22 09/07/2022 urina lysis , dipst ick Unknown Analyte Negati ve Not Available cornelius peralta [address], [place], [address], 09/07/2022 14:05:04 02/05/20 23 02/04/2023 urina lysis , dipst ick Unknown Analyte Normal = light yellow Not Available [facility] [address] [address] [place], [address], 02/04/2023 18:13:59 02/05/20 23 02/04/2023 urina lysis , dipst ick Unknown Analyte Yellow Not Available _ [facility] [place], [address], 02/04/2023 18:13:59 02/05/20 23 02/04/2023 urina lysis , dipst ick Unknown Analyte Normal = clear Not Available _[facility] [address] [place], [address], 02/04/2023 18:13:59 02/05/20 23 02/04/2023 urina lysis , dipst ick Unknown Analyte Clear Not Available _ [facility] [address] [place], [address], 02/04/2023 18:13:59 02/05/20 23 02/04/2023 urina lysis , dipst ick Unknown Analyte Normal = negati ve Not Available _[facility] [place], [address], 02/04/2023 18:13:59 02/05/20 23 02/04/2023 urina lysis , dipst ick Unknown Analyte Negati ve Not Available _[facility] [place], [address], 02/04/2023 18:13:59 02/05/20 23 02/04/2023 urina lysis , dipst ick Unknown Analyte Normal = Negati ve Not Available _[facility] [address] [place], [address], 02/04/2023 18:13:59 02/05/20 23 02/04/2023 urina lysis , dipst ick Unknown Analyte Negati ve Not Available _[address] [place], [address], 02/04/2023 18:13:59 02/05/20 23 02/04/2023 urina lysis , dipst ick Unknown Analyte Normal = Negati ve Not Available _[facility] [place], [address], 02/04/2023 18:13:59 02/05/2002/04/2023 urina lysis , dipst ick Unknown Analyte Negati ve Not Available _[address] [place], [address], 02/04/2023 18:13:59 02/05/20 23 02/04/2023 urina lysis , dipst ick Unknown Analyte Normal = 1.010, 1.015, 1.020 Not Available _[address] [place], [address], 02/04/2023 18:13:59 02/05/20 23 02/04/2023 urina lysis , dipst ick Unknown Analyte <=1.00 5 Not Available [facility] [address] [place], [address], 02/04/2023 18:13:59 02/05/20 23 02/04/2023 urina lysis , dipst ick Unknown Analyte Normal = Negati ve Not Available _[facility] [place], [address], 02/04/2023 18:13:59 02/05/20 23 02/04/2023 urina lysis , dipst ick Unknown Analyte Negati ve Not Available _[facility] [place], [address], 02/04/2023 18:13:59 02/05/20 23 02/04/2023 urina lysis , dipst ick Unknown Analyte Normal = 6.5, 7.0, 7.5, 8.0 Not Available _[address] [place], [address], 02/04/2023 18:13:59 02/05/20 23 02/04/2023 urina lysis , dipst ick Unknown Analyte 6.5 Not Available [facility] [address] [place], [address], 02/04/2023 18:13:59 02/05/2002/04/2023 urina lysis , dipst ick Unknown Analyte Normal = Negati ve Not Available _[address] [place], [address], 02/04/2023 18:13:59 02/05/20 23 02/04/2023 urina lysis , dipst ick Unknown Analyte Negati ve Not Available _[address] [place], [address], 02/04/2023 18:13:59 02/05/20 23 02/04/2023 urina lysis , dipst ick Unknown Analyte Normal = 0.2, 1.0 Not Available _[address] [place], [address], 02/04/2023 18:13:59 02/05/20 23 02/04/2023 urina lysis , dipst ick Unknown Analyte 0.2 E.U./d L Not Available _[address] [place], [address], 02/04/2023 18:13:59 02/05/2002/04/2023 urina lysis , dipst ick Unknown Analyte Normal = Negati ve Not Available _[address] [place], [address], 02/04/2023 18:13:59 02/05/20 23 02/04/2023 urina lysis , dipst ick Unknown Analyte Negati ve Not Available _[address] [place], [address], 02/04/2023 18:13:59 02/05/20 23 02/04/2023 urina lysis , dipst ick Unknown Analyte Normal = Negati ve Not Available _[address] [place], [address], 02/04/2023 18:13:59 02/05/20 23 02/04/2023 urina lysis , dipst ick Unknown Analyte Negati ve Not Available _[address] [place], [address], 02/04/2023 18:13:59 09/07/20 22 09/07/2022 XR, chest , 2 view No observ ation record ed. [email or web address] [facility] [address] [place], [address], 09/07/2022 22:15:50 09/08/20 XR, chest , 2 view No observ ation record ed. [email or web address] [facility] [address] [place], [address], 09/08/2022 18:55:37 02/05/20 23 02/04/2023 elect gallito elizabeth am No observ ation record ed. [address] [address] [place], [address], 02/04/2023 18:55:39 Result Notes None recorded. 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 Procedures Surgical History Date Name Laterality Status Provider Name and Address Organization Details Recorded Time Blank Template completed LIN BAKER [address], [place], [address], PA - [facility] 09/07/2022 14:59:53 procedure on back completed AFSHIN POMPA PA - [facility] 09/07/2022 13:44:55 ligation of fallopian tube completed AFSHIN PMOPA PA - [facility] 09/07/2022 13:45:23 Imaging Results Imaging Date Name Status LastModified by Organization Details LastModified Time 09/07/2022 XR, chest, 2 view completed [email or web address] [facility] [address] [place], [address], 09/07/2022 22:15:50 09/08/2022 XR, chest, 2 view completed [email or web address] [facility] [address] [place], [address], 09/08/2022 18:55:37 02/04/2023 electrocardiogram completed JOSH [address] [place], [address], 02/04/2023 18:55:39 Procedure Notes None recorded. Medical Equipment None Reported. Allergies Allergen ID Allergen Name Allergen Category Reaction Reaction Severity Criticality Documentation Date Start Date Code Code System Note Provider Name and Address Organization Details Recorded Time 29265 baclofen medicatio n hives tachycard ia Not available Not available Not available 09/07/2022 1292 RxNorm AFSHIN PERALESEY null, PA - [facility] 2 13:41:41 73016 Compazine medicatio n hives tachycard ia Not available Not available Not available 09/07/202243652 6 RxNorm AFSHIN POMPA null, PA - [facility] 2 13:41:55 69883 Zofran medicatio n hives tachycard ia Not available Not available Not available 09/07/2022 08225 RxNorm AFSHIN POMPA null, PA - [facility] 12/06/202 2 13:42:11 75783 Reglan medicatio n hives tachycard ia Not available Not available Not available 09/07/2022 9230 RxNorm AFSHINSHAKIR POMPA null, PA - [facility] 2 13:42:34 16974 lorazepam medicatio n dyspnea Not available Not available 09/07/2022 6470 RxNorm AFSHIN POMPA null, PA - [facility] 2 13:42:45 58111 latex environme nt,medica tion angioedem a hives Not available Not available Not available 09/07/2022 35885 91 RxNorm AFSHINSHAKIR POMPA null, PA - [facility] 2 13:43:09 68221 Non-stero idal anti-infl ammatory agent (product) medicatio n hives swelling Not available Not available Not available 09/07/2022 13929 005 SNOMED AFSHIN POMPA null, PA - [...] t Available Vitals Date Recorded Body height Provider Name an d Address Organization Details Last Updated DateTime 02/04/2023 157.48 cm BRENTON JAQUEZ [employer] - [facility] 02/04/2023 17:58:28 Date Recorded Body mass index (BMI) Body weight Provider Name and Address Organization Details Last Updated DateTime 02/04/2023 28.5 kg/m2 04292.41 g BRENTON JAQUEZ PA - [facility] 02/04/2023 17:59:53 Date Recorded Oxygen saturation Oxygen saturation in Arterial blood by Pulse oximetry Provider Name and Address Organization Details Last Updated DateTime 02/04/2023 98 % 98 % BRENTON JAQUEZ PA - [facility] 02/04/2023 18:00:43 Date Recorded Heart rate Provider Name an d Address Organization Details Last Updated DateTime 02/04/2023 64 /min BRENTON JAQUEZ PA - [facility] 02/04/2023 18:00:52 Date Recorded Respiratory rate Provider Name a nd Address Organization Details Last Updated DateTime 02/04/2023 18 /min BRENTON JAQUEZ PA - [facility] 02/04/2023 18:00:57 Date Recorded Body temperature Provider Name a nd Address Organization Details Last Updated DateTime 02/04/2023 97.6 [degF] BRENTON JQAUEZ PA - [facility] 02/04/2023 18:01:04 Date Recorded Body height Provider Name an d Address Organization Details Last Updated DateTime 09/07/2022 157.48 cm AFSHIN POMPA PA - [facility] 1 11/08/2021 13:41:09 Date Recorded Body mass index (BMI) Body weight Provider Name and Address Organization Details Last Updated DateTime 09/07/2022 28.5 kg/m2 39461.41 g AFSHIN POMPA PA - [facility] 09/07/2022 13:41:13 Date Recorded Pain severity - 0-10 verbal numeric rating [Score] - Reported Provider Name and Address Organization Details Last Updated DateTime 09/07/2022 7 AFSHIN POMPA PA - [facility] 1 11/08/2021 13:41:19 Date Recorded Oxygen saturation Oxygen saturation in Arterial blood by Pulse oximetry Provider Name and Address Organization Details Last Updated DateTime 09/07/2022 98 % 98 % AFSHIN POMPA PA - [facility] 09/07/2022 13:46:30 Date Recorded Heart rate Provider Name an d Address Organization Details Last Updated DateTime 09/07/2022 63 /min AFSHIN POMPA PA - [facility] 1 11/08/2021 13:46:33 Date Recorded Respiratory rate Provider Name a nd Address Organization Details Last Updated DateTime 09/07/2022 18 /min AFSHIN POMPA PA - [facility] 1 11/08/2021 13:46:35 Date Recorded Body temperature Provider Name a nd Address Organization Details Last Updated DateTime 09/07/2022 97.9 [degF] AFSHIN POMPA PA - [facility] 09/07/2022 13:49:14 Date Recorded Systolic blood pressure Diastolic blood pressure Provider Name and Address Organization Details Last Updated DateTime 02/04/2023 170 mm[Hg] 90 mm[Hg] BRENTON JAQUEZ PA - [facility] 02/04/2023 18:00:30 Date Recorded Systolic blood pressure Diastolic blood pressure Provider Name and Address Organization Details Last Updated DateTime 09/07/2022 194 mm[Hg] 94 mm[Hg] AFSHIN POMPA PA - [facility] 09/07/2022 13:47:04 Date Recorded Systolic blood pressure Diastolic blood pressure Provider Name and Address Organization Details Last Updated DateTime 09/07/2022 150 mm[Hg] 92 mm[Hg] LALO DICK PA - [facility] 09/07/2022 15:08:39 Social History Question Answer Notes LastModified by Organizat ion Details LastModified Time Tobacco Smoking Status Never Smoker AFSHIN colvin PA - [facility] 09/07/2022 13:45:43 What Is Your Level Of Alcohol Consumption? Occasional Information not available 09/07/2022 Do You Use Any Illicit Or Recreational Drugs? No [email or web address] Information not available 09/07/2022 Have You Recently Traveled Abroad? No [email or web address] Information not available 09/07/2022 Do You Or [...] 13:44:41 Mother No current problems or disability [email or web address] Not available 09/07 13:44:41 Medical History No medical history recorded. Gynecological History Statement/Question Response Date of LMP 01/14/2023 Is there any chance of ? No LMP Approximate Obstetrics History GPAL:G 0 P 0 0 0 0 Past Encounters Encounter ID Performer Location Encounter Start Date Encounter Closed Date Diagnosis/Indication Diagnosis SNOMED-CT Code Diagnosis ICD10 Code Diagnosis Note [id number] [address] [address] 11/03/2021 18:56:43 11/03/2021 20:13:22 [id number] [address] [place] [address] 11/27/2018 16:55:25 11/27/2018 17:32:56 [id number] [address] [place] [address] 01/30/2020 15:22:17 01/30/2020 15:52:28 [id number] [address] [place] [address] 11/20/2018 10:57:34 11/20/2018 11:29:01 [id number] [address] [address] 11/23/2019 15:50:09 11/23/2019 17:21:[address] [id number] [address] [address] 08/16/2022 10:52:47 08/16/2022 12:21:15 [id number] LIN BAKER [address] [place] [address] 09/07/2022 13:31:09 09/07/2022 15:11:56 Cough 20400587 R05.9 Wheezing right lower quadrant - cough over 3 weeks. Candidiasis of vagina 72 608914 B37.31 Hypertensive disorder 38 916695 I10 Your blood pressure was elevated today - you need to follow up with your PCP for this. Medication may need to be adjusted. Please keep a journal of AM and PM readings from a home cuff. This will help adjust medication s. Acute bronchitis 1864143 2 J20.9 [id number] MARILYNN DUNCAN [place] [address] [place] [address] 02/04/2023 17:52:28 02/04/2023 19:03:25 Lightheadedness 983413463 R42 Left hemiparesis 8337184 00 G81.90 Health Concerns Section Related Observation LastModified by Organization Detai ls LastModified Time None Recorded Concern Status LastModified by Organization Details LastModified Time None Recorded Advance Directives Directive None Recorded Payers Encounter Date Sequence Insurance Name Policy Number Policy Stinson Covered Member ID Stinson Member ID Guarantor Name 01/30/2020 1 [place] [employer] Karena M Nayak [id number] Karena Nayak 11/03/2021 1 [place] Karena M Nayak [id number] Karena Nayak 11/03/2021 2 [place] Karena M Nayak [id number] Karena Nayak 08/16/2022 1 [place] [employer] Karena M Nayak [id number] Karena Nayak 08/16/2022 2 [place] Karena M Nayak [id number] Karena Nayak 09/07/2022 1 [place] [employer] Karena M Nayak [id number] Karena Nayak 09/07/2022 2 [place] Karena M Nayak [id number] Karena Nayak 02/04/2023 1 [place] [employer] Karena M Nayak [id number] Karena Nayak 02/04/2023 2 [place] Karena M Nayak [id number] Karena Nayak Notes Date Note Type Note [...] has been taking albuterol in LIN BAKER [address] [place], [address], [place] [facility] 09/07/2022 15:11:28 3 text/html 42 yr old female presents with acute onset of left arm numbness and syncope x ~ 3 hours. She denies chest pain, palpitations, SOB, dizziness, N/V/D/ rashes, recent illness, or sick contacts. No hx of this happening before. MARILYNN DUNCAN MD [address] [place], [address], [facility] 02/26/2023 08:23:08 OBGyn Episode No OBEpisode recorded.
--- OUTSIDE RECORDS SUMMARY | 2024-11-02 07:58 | XMS_ITS | Encounter Summary ---
Author Organization [employer] Address [address] [place] [address] Care Team Providers Care Materials Development Engineer Name Role Phone Name, Gold WADE Primary Care Provider [phone] Reason for Visit * Reason Onset Date Comments callback requested 10/04/2024 Encounter Details Date Type Department Care Team ([facility] st Contact Info) Description 10/04/2024 Telephone [facility] [address] [place], [place] [phone] Name, MD Gold [address] [place] [address] callback requested Social History Tobacco Use Types Packs/Day Years Used Date Smoking Tobacco: Former Cigarettes Passive Smoke Exposure: Past Smokeless Tobacco: Never Alcohol Use Standard Drinks/Week Comments Not Currently 0 (1 standard drink = 0.6 oz pur e alcohol) occassionally Depression Answer Date Recorded Patient Health Questionnaire-9 Score 12 07/17/2024 Patient Health Questionnaire-9 Score 12 07/17/2024 Last PHQ-9: Questionnaire Data Not on file 1 Housing Stability Answer Date Recorded What is your housing situation today? I have chapincito ackerman 02/03/[address] you li ve. Do you have problems with any of the following? None of the above 02/03/2024 Food Insecurity Answer Date Recorded Within the past 12 months, y ou worried that your food would run out before you got money to buy more: Never True 02/03/2024 Within the past 12 months,th e food you bought just didn't last and you didn't have enough money to get more: Never True 12/2023 Transportation Answer Date Recorded In the past 12 months, has l ack of transportation kept you from medical appts, meetings, work or from getting things needed for daily living? No 02/03/2024 Utilities Answer Date Recorded In the past 12 months, has t he electric, gas, oil or water company threatened to shut off services in your home? No 02/03/2024 Depression Answer Date Recorded Patient Health Questionnaire-2 Score 2 07/17/2024 Comments Unknown Sex and Gender Information Value Date Recorded Sex Assigned at Female 08/02/2022 10:21 AM EDT Legal Sex Female 10:21 AM EDT Gender Identity Female 08/02/2022 10:21 AM EDT Sexual Orientation Straight 08/02/2022 10 :21 AM EDT documented as of this encounter Miscellaneous Notes * Telephone Encounter - Sarah Burks RN - 10/05/2024 3:27 PM EST TC x1 PM to pt to discuss requesting lab orders. No answer, LVM to return call to office and ask for blue team nurses. * Telephone Encounter - Rosalinda Webb - 10/04/2024 10:18 AM EST Tc from pt requesting lab orders , as she will like a callback to speak with PCP [phone] documented in this encounter Plan of Treatment Not on file documented as of this encounter Visit Diagnoses Not on filedocumented in this encounter Additional Health Concerns Assessment Noted Time PHQ-9 Depression Total Score: 12 024 1:30 PM EDT documented as of this encounter Care Teams Materials Development Engineer Relationship Specialty Start Date End Date Name, MD Gold [address] [place] [address] PCP - General Family Medicine 02/02/16 documented as of this encounter
--- OUTSIDE RECORDS SUMMARY | 2024-11-02 07:58 | XMS_ITS | Encounter Summary ---
Author Organization [employer] Address [address] [place] [address] Care Team Providers Care Simulation Specialist Name Role Phone Name, Gold WADE Primary Care Provider [phone] Reason for Visit * Reason Onset Date Comments [place] triage 10/04/2024 Encounter Details Date Type Department Care Team ([facility] st Contact Info) Description 10/04/2024 Telephone [facility] [address] [place] [address] Erika Beltre, RN [facility] triage Social History Tobacco Use Types Packs/Day Years [...] encounter Miscellaneous Notes * Telephone Encounter - Erika Beltre RN - 10/04/2024 12:19 PM EST Pt presents to [facility] for c/o burning chest pain chronic, for past year. Pt was seen at [facility] ED on 09/05/24 for same. Pt has neuro and rheum MD in [place] but has not seen them in a year due to transportation problems. She states she was given a cardiology referral, but has not heard from the office. Pt brought to room A for triage at approx.1145. VSS: Non labored resp 18 LS clear R/A sat 99% HR 54 BP right arm sittin/89 PO temp 98.2 Pt states she has been back to work after being treated for fibromyalgia. She has noted that duringthe past year, she has a burning sensation down the center of her chest, which is worse with physical contact. She states it is concerning to her because she does not know what itis, and the pain and stress is making it hard to continue to work . She states I take a lot of meds for fibro, they are al downers. I am tired . Pt denies worsening of pain in direct correlation to exertion, denies dizziness, sweating, or sustained GISELLA. EKG: P/AZ: 112/180 ms QRS: 84 ms QT/Qtc: 438/415 ms P/QRS/T axis: deg HR: 54 Pt has [facility] visit appointment for 1pm Pt seen by provider at 1 pm documented in this encounter Plan of Treatment Not on file documented as of this encounter Visit Diagnoses Not on filedocumented in this encounter Additional Health Concerns Assessment Noted Time PHQ-9 Depression Total Score: 12 024 1:30 PM EDT documented as of this encounter Care Teams Simulation Specialist Relationship Specialty Start Date End Date Name, MD Gold [address] [place] [address] PCP - General Family Medicine 02/02/16 documented as of this encounter
--- OUTSIDE RECORDS SUMMARY | 2024-11-02 07:58 | XMS_ITS | Encounter Summary ---
Author Organization [employer] Address [address] [place] [address] Care Team Providers Care Cloth Bale Header Name Role Phone Name, Gold WADE Primary Care Provider [phone] Encounter Details Date Type Department Care Team (Latest Contact Info) Description 01/10/2019 Abstract C CONVERSIONS Dental, Provider, DDS Social History Tobacco Use Types Packs/Day Years Used Date Smoking Tobacco: Never Assessed Comments Unknown Sex and Gender Information Value Date Recorded Sex Assigned at Female 08/02/2022 10:21 AM EDT Legal Sex Female 10:21 AM EDT Gender Identity Female 08/02/2022 10:21 AM EDT Sexual Orientation Straight 08/02/2022 10 :21 AM EDT documented as of this encounter Plan of Treatment Not on file documented as of this encounter Visit Diagnoses Not on filedocumented in this encounter Care Teams Cloth Bale Header Relationship Specialty Start Date End Date Name, MD Gold [address] [place] [id number] PCP - General Family Medicine 02/02/16 documented as of this encounter
--- OUTSIDE RECORDS SUMMARY | 2024-11-02 07:58 | XMS_ITS | Encounter Summary ---
Author Organization [employer] Address [address] [place] [address] Care Team Providers Care Surgical Instrument Repair Specialist Name Role Phone Name, Gold WADE Primary Care Provider [phone] Reason for Visit * Reason Onset Date Comments ER Follow-up 02/17/2024 Nurse Triage 02/17/2024 Encounter Details Date Type Department Care Team (Late st Contact Info) Description 02/17/2024 Telephone [facility] [address] [place], [place] [phone] Name, MD Gold [address] [place], [place] [phone] ER Follow-up; Nurse Triage Social History Tobacco Use Types Packs/Day Years Used Date Smoking Tobacco: Former Cigarettes Passive Smoke Exposure: Past Smokeless Tobacco: Never Alcohol Use Standard Drinks/Week Comments Not Currently 0 (1 standard drink = 0.6 oz pur e alcohol) occassionally Depression Answer Date Recorded Patient Health Questionnaire-9 Score 14 12/14/2023 Patient Health Questionnaire-9 Score 14 12/14/2023 Last PHQ-9: Questionnaire Data Not on file 0 12/14/2023 Housing Stability Answer Date Recorded What is [...] Answer Date Recorded Patient Health Questionnaire-2 Score 3 12/14/2023 Comments Unknown Sex and Gender Information Value Date Recorded Sex Assigned at Female 08/02/2022 10:21 AM EDT Legal Sex Female 10:21 AM EDT Gender Identity Female 08/02/2022 10:21 AM EDT Sexual Orientation Straight 08/02/2022 10 :21 AM EDT documented as of this encounter Miscellaneous Notes * Telephone Encounter - Dolly Estrada RN - 02/17/2024 9:41 AM EDT ED notes given to pcp. * Telephone Encounter - Lona Cedeno RN - 02/17/2024 8:21 AM EDT Please assist with obtaining discharge summary for [facility] [place] [place] ED visit on 02/16/24 for provider review prior to upcoming appointment. Future Appointments Date Time Provider Department Center 02/17/2024 11:00 AM Gold Frost MD [facility] 02/22/2024 9:00 AM [facility] BLUE TEAM NURSE [facility] 02/23/2024 10:30 AM Spring Marinelli CNM [facility] 02/28/2024 9:45 AM [facility] CHRONIC PAIN CLINIC [facility] * Telephone Encounter - Lona Cedeno RN - 02/17/2024 8:13 AM EDT Per [facility] [place] [place] ED notes pt seen on 02/16/24 for chest pain and HIGH BP systolic in 150. PT had appt with PCP on 02/02 and restarted on losartan. Labs all unremarkable. Pt given rx for lidoderm patches. Call to patient. Reports continues to have chest pain. Unable to obtain lidocaine patch as not covered by insurance. Advised to follow up with PCP to obtain alt rx. Pt advised needs EDF. Agrees to sick appt today with PCP for follow up. Protocol Used: Recent Medical Visit for Illness Follow-up Call (Adult) Protocol-Based Disposition: See in Office or Video Visit Today or Tomorrow Future Appointments Date Time Provider Department Center 02/17/2024 11:00 AM Gold Frost MD [facility] 02/22/2024 9:00 AM [facility] BLUE TEAM NURSE [facility] 02/23/2024 10:30 AM Spring Marinelli CNM [facility] 02/28/2024 9:45 AM [facility] CHRONIC PAIN CLINIC [facility] Video visit offer not recorded Positive Triage Question: * Patient wants to be seen * All higher-acuity triage questions were negative Care Advice Discussed: * Reasons To Call Back - You become worse * Telephone Encounter - Nay Ferreira - 02/17/2024 8:05 AM EDT Patient calling to report ED visit on : Date: 02/15 Hospital: [facility] [place] [place] Seen for: Chest Pain/Muscle Patient advised will forward to team nurse for follow up. Symptom: Chest Pain - Adult Outcome: Schedule an urgent appointment (within 1 hour) or talk to a nurse or provider soon Reason: Pt with medication not covered by insurance The caller accepted this outcome documented in this encounter Plan of Treatment Not on file documented as of this encounter Visit Diagnoses Not on filedocumented in this encounter Additional Health Concerns Assessment Noted Time PHQ-9 Depression Total Score: 14 024 10:35 AM EDT documented as of this encounter Care Teams Surgical Instrument Repair Specialist Relationship Specialty Start Date End Date Name, MD Gold [address] [place] [address] PCP - General Family Medicine 02/02/16 documented as of this encounter
--- OUTSIDE RECORDS SUMMARY | 2024-11-02 07:58 | XMS_ITS | Encounter Summary ---
Author Organization [employer] Address [address] [facility] [address] [place] [address] Care Team Providers Care Broadcast Maintenance Technician Name Role Phone Name, Gold WADE Primary Care Provider [phone] Reason for Referral * Consultation (Routine) - Closed Specialty Diagnoses / Procedures Referred By Contac t Referred To Contact Physical Therapy Diagnoses Costochondritis Chronic right shoulder pain Neck pain Shruthi Kennedy MD [address] [place] [phone] Phone: tel: fax: Physical Therapy, AT [address] [place] [address] Dr Jones [place], [place] Phone: tel: fax: Referral ID Status Reason Start Date Expiration Date V isits Requested Visits Authorized [id number] Closed Specialty Services Required 10/04/2024 10/04/2025 1 1 Reason for Visit * Reason Comments Chest Pain Chronic pleuritic ch est pain x 1 year/ burning feeling worse on palpation/contact Encounter Details Date Type Department Care Team (Latest Contact Info) Description 10/04/2024 3:00 PM EST Office Visit [facility] [address] [place] [phone] Shruthi Kennedy MD [address] [place] [phone] Costochondritis (Primary Dx); Chronic right shoulder pain; Neck pain Social History Tobacco Use Types Packs/Day Years [...] AM EDT documented as of this encounter Last Filed Vital Signs Vital Sign Reading Time Taken Comments Blood Pressure 150/92 10/04/2024 1:25 PM EST Pulse 53 10/04/2024 1:25 PM EST Temperature 36.8 ??C (98.2 ??F) 10/04/2024 1:25 PM ES T Respiratory Rate - - Oxygen Saturation 99% 10/04/2024 1:25 PM EST Inhaled Oxygen Concentration - - Weight - - Height - - Body Mass Index - - documented in this encounter Progress Notes * Shruthi Kennedy MD - 10/04/2024 3:00 PM EST Subjective Patient ID: Karena Nayak is a 44 y.o. female with past medical history atypical chest pain, chronic pain syndrome, on chornic opiate therapy, hypertension, GERD and generalized anxiety disorder who presents for Chest Pain (Chronic pleuritic chest pain x 1 year/ burning feeling worse on palpatio n/contact). ER notes reviewed. Pt has extensive hx of cervical spine pain, hx surgery, right shoulder pain. PT reprots pain so severe she has difficulty sleeping. Described as deep but very tender to touch over right anterior chest/ribs. Review of Systems Constitutional: Positive for fatigue. Musculoskeletal: Positive for arthralgias and neck pain. Objective Visit Vitals BP (!) 169/89 (BP Location: Right arm, Patient Position: Sitting, BP Cuff Size: Adult) Pulse 53 Temp 98.2 ??F (36.8 ??C) (Temporal) There is no height or weight on file to calculate BMI. Physical Exam Constitutional: Appearance: Normal appearance. Cardiovascular: Rate and Rhythm: Normal rate and regular rhythm. Heart sounds: Normal heart sounds. Comments: Chest with hyperesthesia with light touch over anterior upper right ribs, pain over trapezius and right lateral neck muscles. Pulmonary: Effort: Pulmonary effort is normal. Breath sounds: Normal breath sounds. Abdominal: Tenderness: There is no abdominal tenderness. Musculoskeletal: Cervical back: Normal range of motion and neck supple. Neurological: General: No focal deficit present. Mental Status: She is alert. Psychiatric: Behavior: Behavior normal. Problem List Items Addressed This Visit Costochondritis - Primary Anterior chest pain likely multifactorial including likely from radiculopathy in setting of fibromyalgia/chronic pain syndrome. No evidence of cardiac etiology on exam or history. EKG without evidence of ischemia or infarction today. We reviewed some anatomy with focus on the intercostal nerves. Wereviewed how these originate from the spine and travel though the upper arm. We discussed both central and peripheral nervous system is involved in pain and the importance of treating both. She is interested in physical therapy, acupuncture, self hypnosis (free on youtube) and plans on stopping her job (she has disability). She will continue her current medication regimen and agrees with the plan. Relevant Orders Referral to Physical Therapy Other Visit Diagnoses Chronic right shoulder pain Relevant Orders Referral to Physical Therapy Neck pain Relevant Orders Referral to Physical Therapy No follow-ups on file. documented in this encounter Miscellaneous Notes * Assessment & Plan Note - Shruthi Kennedy MD - 10/04/2024 4:06 PM EST Associated Problem(s): Costochondritis (Resolved 10/24/2024) Anterior chest pain likely multifactorial including likely from radiculopathy in setting of fibromyalgia/chronic pain syndrome. No evidence of cardiac etiology on exam or history. EKG without evidence of ischemia or infarction today. We reviewed some anatomy with focus on the intercostal nerves. Wereviewed how these originate from the spine and travel though the upper arm. We discussed both central and peripheral nervous system is involved in pain and the importance of treating both. She is interested in physical therapy, acupuncture, self hypnosis (free on youtube) and plans on stopping her job (she has disability). She will continue her current medication regimen and agrees with the plan. documented in this encounter Plan of Treatment Scheduled Referrals Name Type Priority Associated Diagnoses Orde r Schedule Referral to Physical Therapy Outpatient Referral Routine Costochondritis Chronic right shoulder pain Neck pain Expected: 10/04/2024 (Approximate), Expires: 10/04/2025 documented as of this encounter Procedures Procedure Name Priority Date/Time Associated Diagnosis Comments ECG 12-LEAD Routine 10/04/2024 4:07 PM EST Costochondritis documented in this encounter Results * ECG 12 lead (10/04/2024 4:07 PM EST) Narrative Shruthi Kennedy MD - 10/04/2024 4:07 PM EST 54 bmp nsr without evidence of ischemia or infarction us Shruthi Kennedy MD ECG ORDERABLES Final Resu lt documented in this encounter Visit Diagnoses Diagnosis 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
--- OUTSIDE RECORDS SUMMARY | 2024-11-02 07:58 | XMS_ITS | Clinical Summary ---
Author Organization [employer] Address [address] [place] [address] Care Team Providers Care Coder Name Role Phone Name, Gold WADE Primary Care Provider [phone] Allergies Active Allergy Reactions Criticality Noted Date Comments Amoxicillin 12/06/2019 Baclofen Other,Hives,Palpitat ion s Low 12/04/2009 Rapid heart rate/ headaches/sg Ibuprofen Hives,Swelling,Anaph yla xis High 05/19/2011 And abdominal pain Latex Hives,Angioedema High 01/15/2021 Lorazepam Palpitations,Shortne ss of breath High 11/13/2019 suppressed breathing Meloxicam Angioedema 01/15/2021 Metoclopramide Other,Hives,Palpitat ion s Low 12/04/2009 Rapid heart rate/sg Nsaids Hives,Swelling High 01/06/2022 Ondansetron Hives,Palpitations Low 02/24/2016 Prochlorperazine Hives,Palpitations High 02/24/2016 Medications * This document contains information received from the source organization and may not represent a complete record from that organization. albuterol 108 (90 Base) MCG/ACT inhaler Inhale 2 puffs every 4 (four) hours if needed. 10/11/19 20 Active naloxone (Narcan) 4 mg/0.1 mL nasal sprayIndication s:Chronic pain syndrome FOR SUSPECTED OPIOID OVERDOSE. SPRAY 0.1mL IN ONE NOSTRIL. REPEAT IN ALTERNATE NOSTRIL EVERY 2-3 MINUTES IF NEEDED. SEEK MEDICAL ATTENTION IMMEDIATELY EVEN IF PT RESPONDS Strength: 4 MG/0.1ML 2 each 3 09/10/20 22 Active cetirizine (ZyrTEC) 10 MG tabletIndicatio ns:Allergy, subsequent encounter Take 1 tablet (10 mg) by mouth in the morning. As needed for allergies 90 tablet 3 09/21/20 22 Active SUMAtriptan (Imitrex) 50 MG tabletIndicatio ns:Migraine with aura and without status migrainosus, not intractable Take 1 tablet (50 mg) by mouth 1 (one) time if needed for migraine for up to 1 dose. 9 tablet 1 08/22/20 23 Active Diclofenac Sodium (Voltaren) 1 % gelIndications: Costochondritis Apply topically 2-4 times per day to affected area as needed for pain 100 g 1 08/22/20 23 Active omeprazole (PriLOSEC) [address] capsule TAKE 1 CAPSULE BY MOUTH BEFORE BREAKFAST. 90 capsule 3 02/01/20 24 Active benzonatate (Tessalon) 200 MG capsule Take 1 capsule by mouth 3 times daily. Active fluticasone (Flonase) 50 MCG/ACT nasal spray SPRAY 1 - 2 SPRAY BY INTRANASAL ROUTE EVERY DAY IN EACH NOSTRIL NEEDED Active tiZANidine (Zanaflex) 2 MG tabletIndicatio ns:Cervical dystonia Take 1 tablet (2 mg) by mouth if needed in the morning and at bedtime for muscle spasms. 60 tablet 3 07/13/20 24 2024 Active escitalopram (Lexapro) 5 MG tablet Take 1 tablet (5 mg) by mouth Once per day. 30 tablet 2 07/13/20 24 Active melatonin 5 MG tablet Take 1-2 tablets (5-10 mg) by mouth if needed at bedtime (insomnia). 60 tablet 3 07/13/20 24 Active Diclofenac Sodium 1 % cream Apply 2 g topically if needed in the morning and at bedtime (pain). 120 g 3 07/13/20 24 Active clindamycin (Cleocin) 150 MG capsule TAKE 1 CAPSULE BY MOUTH 4 TIMES A DAY FOR 7 DAYS 07/03/20 24 Active valACYclovir (Valtrex) 500 MG tablet Take 500 mg by mouth 2 times daily. 06/20/20 24 Active famotidine (Pepcid) 20 MG tablet TAKE 1 TABLET BY MOUTH AT BEDTIME 90 tablet 09/12/20 24 Active clonazePAM (KlonoPIN) 1 MG tablet Take 1 tablet (1 mg) by mouth 2 times daily for 28 days. 56 tablet 10/02/20 24 Active predniSONE (Deltasone) 20 MG tabletIndicatio ns:Chronic neck pain Take 3 tablets (60 mg) by mouth Once per day for 3 days, THEN 2 tablets (40 mg) Once per day for 3 days, THEN 1 tablet (20 mg) Once per day for 3 days. 18 tablet 10/24/19 25 2024 Active chlorthalidone (Hygroton) 25 MG tabletIndicatio ns:Essential hypertension Take 1 tablet (25 mg) by mouth Once per day. 30 tablet 2 10/24/19 25 2024 Active losartan (Cozaar) 25 MG tabletIndicatio ns:Essential hypertension Take 1 tablet (25 mg) by mouth Once per day. 30 tablet 11 10/24/19 25 2025 Active losartan (Cozaar) 25 MG tabletIndicatio ns:Essential hypertension Take 1 tablet (25 mg) by mouth Once per day. 30 tablet 11 02/03/20 24 2024 Discontinued(R eorder (will not trigger notification to Pharmacy)) amLODIPine (Norvasc) 2.5 MG tablet Take 1 tablet by mouth in the morning. 2024 Discontinued(T herapy completed) chlorthalidone (Hygroton) 25 MG tablet Take 1 tablet by mouth Once per day. 07/25/20 19 2024 Discontinued(R eorder (will not trigger notification to Pharmacy)) oxyCODONE-aceta minophen (Percocet) 5-325 MG tabletIndicatio ns:Chronic pain syndrome Take 1 tablet by mouth every 8 (eight) hours if needed for severe pain for up to 7 days. 21 tablet 10/02/20 24 2024 Active Problems Problem Noted Date Diagnosed Date snf (current) use of opiate analgesic 07/04 Overview (09/01/2024): Dx: Cervical dystonia, fibromyalgia Rx: Percocet 5/325mg every 8 hours, Clonazepam 1mg BID prn, Gabapentin 100mg Last PE MANAGER agreement: 11/16/23 Tier II (visit every 3 months) Additional considerations: Timeline: Tubal ligation status 02/03/2024 Gastroesophageal reflux disease 01/31/2024 Assessment & Plan (09/01/2024 11:46 AM EST): Patient on PPI and H2 jim, with persistent and even worsening symptoms - recommend trial of alkaline diet - consider doubling PPI dosage - review of barium swallow from 01/2024 mentions focal erosions, recommend EGD correlation - GI consult placed for EGD correlation Dysphagia 01/31/2024 Severe episode of recurrent major depressive disorder, without psychotic features 02/25/2023 Overview (04/12/2023): Assessment: Patient with epression (depressed mood, decreased interest engaging in activities she used to enjoy, difficulty sleeping, altered appetite with binging and restricting, feelings of guilt, difficulty concentrating, increased fidgeting, and passive SI without plan or intent) and anxiety (feeling nervous, difficult to control worry, difficulty relaxing, restlessness, irritability, and fear that something awful will happen). Symptoms are in the context of biopsychosocial stressors of chronic disease, relationship/family stress, and a history of trauma in childhood and adulthood. Patient will benefit from increased coping mechanisms, placing boundaries, al- anon, and OP therapy. At this time Karena Nayak meets criteria for Visit Diagnoses: Problem List Items Addressed This Visit Other Anxiety Depressive disorder Patient ready to address current needs Yes Strengths- Karena is in the action stage of change and open to recommendations PLAN: 1. Follow up with [facility]: Recommended for follow-up: As needed 2. Patient goal is to engage in OP therapy 3. Behavioral Recommendations a. Increased coping mechanisms b. Placing boundaries and setting expectations c. OP therapy Assessment & Plan (05/24/2023 9:18 AM EDT): Assessment: Patient with worsening depression (depressed mood, decreased interest engaging in activities she used to enjoy, difficulty sleeping, altered appetite with binging and restricting, feelings of guilt, difficulty concentrating, increased fidgeting, passive SI without plan or intent) and anxiety (feeling nervous, difficult to control worry, difficulty relaxing, restlessness, irritability, and fear that something awful will happen). Symptoms in the context of biopsychosocial stressors of chronic disease, relationship/family stress, and a history of trauma in childhood/adulthood. Patient will benefit from increased self care, respite, SDOH referral for housing assistance, continued OP therapy and integrating coping mechanisms into daily routines . At this time Karena Nayak meets criteria for Visit Diagnoses: Problem List Items Addressed This Visit Other Anxiety MDD (major depressive disorder) Patient ready to address current needs Yes Strengths- Karena is persistent and has a supportive mosque group that she can lean on. She is in the action stage of change PLAN: 1. Follow up with [facility]: Recommended for follow-up: As needed 2. Patient goal is to continue OP therapy and increase cooping mechanisms 3. Behavioral Recommendations a. Grounding b. Respite c. OP therapy d. SDLA referral for housing assistance Class 1 obesity 02/25/2023 Mild intermittent asthma without complication Migraine headache 02/25/2023 Subclinical hyperthyroidism 02/25/2023 Goiter 02/25/2023 Genital herpes simplex 09/02/2022 Seasonal allergies 09/02/2022 Thyroid nodule 09/02/2022 Cervical dystonia 08/19/2017 Assessment & Plan (09/01/2024 11:44 AM EST): Pt attended and participated in group today - urine toxicology not performed as normal from last month, and pill count as expected - continue to explore non-pharmacological means of pain modulation - f/u in 1-2 months for next group Essential hypertension 12/07/2016 Assessment & Plan (09/23/2022 6:30 AM EST): -BP WNL in office today, although pt concerned about elevated readings at home -START amlodipine 2.5mg daily, reviewed med safety and SE. Bring in BP cuff during next visit to make sure calibrated correctly -Continue with chlorthalidone 25mg daily -Encourage low salt diet and goal 150 mins of exercise weekly -ED/urgent care precautions reviewed SAURAV (generalized anxiety disorder) 06/15/2016 Chronic pain syndrome 02/02/2016 Assessment & Plan (07/26/2024 6:14 AM EDT): Patient participated in chronic pain group with thoughtful reflection - she appreciated group support and participated to the fullest of her desires and abilities - urine toxicology and pill count as expected - follow-up in 1-2 months as desired for further group sessions Assessment & Plan (06/26/2024 2:19 PM EDT): Patient participated in chronic pain group with thoughtful reflection - she appreciated group support and shared her citlaly of creating soaps and candles - utox and pill count not performed as patient's last normal was last month - follow-up in 1-2 months as desired for further group sessions Assessment & Plan (05/29/2024 9:40 PM EDT): Patient participated in chronic pain group with thoughtful reflection - she appreciated group support and shared her struggles with varying energy levels and family expectations - utox and pill count as expected - follow-up in 1-2 months as desired for further group sessions Assessment & Plan (03/28/2024 7:12 AM EDT): Patient participated in chronic pain group with thoughtful reflection - she appreciated group support and shared her struggles the past month of family expectations - utox and pill count as expected - follow-up in 1-2 months as desired for further group sessions Assessment & Plan (03/01/2024 3:01 PM EDT): Patient participated in first chronic pain group with enthusiasm - she appreciated group support and shared her vision for living a joyful life - utox and pill count as expected - follow-up in 1-3 months as desired for further group sessions Resolved Problems Problem Noted Date Diagnosed Date Resolved Date Atypical chest pain 08/21/2024 10/24/19 25 Assessment & Plan (09/09/2024 3:35 PM EST): Acute on chronic atypical chest pain, Case reviewed with pcp Labs as ordered below Pt aware if symptoms increase or fail to resolve to seek ER care Overweight 02/25/2023 02/03/2024 Cervical radiculopathy 02/25/202302/02 Fibromyalgia 09/07/2022 02/03/2024 Hypertensive disorder 09/07/20222023 Costochondritis 09/07/2022 10/24/2024 Assessment & Plan (10/04/2024 4:06 PM EST): Anterior chest pain likely multifactorial including likely from radiculopathy in setting of fibromyalgia/chronic pain syndrome. No evidence of cardiac etiology on exam or history. EKG without evidence of ischemia or infarction today. We reviewed some anatomy with focus on the intercostal nerves. We reviewed how these originate from the spine and travel though the upper arm. We discussed both central and peripheral nervous system is involved in pain and the importance of treating both. She is interested in physical therapy, acupuncture, self hypnosis (free on youtube) and plans on stopping her job (she has disability). She will continue her current medication regimen and agrees with the plan. 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 02/03/2024 Encounters Date Type Department Care Team Description 10/24/2024 2:15 PM EST Office Visit [facility] [address] [place] [id number] Gold Frost MD Foraminal stenosis of cervical region (Primary Dx); H/O cervical spine surgery; Non-cardiac chest pain; Chronic neck pain; Essential hypertension 10/23/2024 Telephone [facility] [address] [place] [phone] Gold Frost MD Request For Order(s) 10/04/2024 3:00 PM EST Office Visit [facility] [address] [place] [address] [phone] Shruthi Kennedy MD Costochondritis (Primary Dx); Chronic right shoulder pain; Neck pain 10/04/2024 Telephone [facility] [address] [place] [address] [phone] Erika Beltre, RN [facility] triage 10/04/2024 Telephone [facility] [place] [place] [address] Gold Frost MD callback requested 10/02/2024 Refill [facility] [place] [phone] Gold Frost MD Chronic pain syndrome 09/12/2024 Refill [facility] [place] [phone] Georgie Jain NP 09/06/2024 Telephone [facility] [place] [phone] Gold Frost MD ER Follow-up 09/05/2024 10:30 AM EST Telemedicine [place] [phone] Dolly Estrada RN Essential hypertension 09/03/2024 Telephone [facility] [place] [phone] Ebony Mcclain RN 08/29/2024 Travel 08/28/2024 9:45 AM EST Office Visit [facility] [place] [address] Loulou Edwards MD Cervical dystonia (Primary Dx); 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; Gastroesophageal reflux disease with esophagitis without hemorrhage 08/28/2024 Travel 08/23/2024 Refill [facility] [place] [address] Gold Frost MD Chronic pain syndrome (Primary Dx) 08/22/2024 Travel 08/22/2024 Telephone [facility] [place] [address] Gold Frost MD Nurse Triage 08/21/2024 1:45 PM EST Office Visit [facility] [place] [address] Georgie Jain NP Atypical chest pain (Primary Dx) 08/21/2024 Travel 08/21/2024 Telephone [facility] [place] [address] Gold Frost MD Nurse Triage from Last 3 Months Immunizations Name Administration Dates Next Due Influenza injectable quadriv alent IIV4 with preservative 08/02/2017 Influenza injectable quadrivalent preservative f ree 10/17/2018,06/14/2012 Influenza, IIV3, injectable 09/30/2015 Td (adult), 5 Lf tetanus tox oid, preservative free, adsorbed 06/07/2017 Tdap 06/07/2007 Social History Tobacco Use Types Packs/Day Years Used Date Smoking Tobacco: Former Cigarettes Passive Smoke Exposure: Past Smokeless Tobacco: Never Tobacco Cessation:Counseling Given: Not Answered Alcohol Use Standard Drinks/Week Comments Not Currently [...] the past 12 months, has t he [employer], gas, oil or water company threatened to shut off services in your home? No 02/03/2024 Depression Answer Date Recorded Patient Health Questionnaire-2 Score 2 07/17/2024 Comments Unknown Sex and Gender Information Value Date Recorded Sex Assigned at Female 08/02/2022 10:21 AM EDT Legal Sex Female 10:21 AM EDT Gender Identity Female 08/02/2022 10:21 AM EDT Sexual Orientation Straight 08/02/2022 10 :21 AM EDT Last Filed Vital Signs Vital Sign Reading Time Taken Comments Blood Pressure 147/91 10/24/2024 2:14 PM EST Pulse 67 10/24/2024 2:14 PM EST Temperature 35.9 ??C (96.6 ??F) 10/24/2024 2:14 PM ES T Respiratory Rate 16 10/24/2024 2:14 PM EST Oxygen Saturation 97% 10/24/2024 2:14 PM EST Inhaled Oxygen Concentration - - Weight 73 kg (161 lb) 10/24/2024 2:14 PM EST Height 157.5 cm (5' 2 ) 10/24/2024 2:14 PM EST Body Mass Index 29.45 10/24/2024 2:14 PM EST Plan of Treatment Health Maintenance Due Date Last Done Comments HIV Screening 1980 Family Planning (PISQ) 1995 Hepatitis C Screening 1998 Hepatitis B Vaccines (1 of 3 - 19+ 3-dose series) 1999 Pneumococcal Vaccine: Pediatrics (0 to 5 Years) and At-Risk Patients (6 to 49) Years) (1 of 2 - PCV) 1999 Pap Smear 2001 Cervical Cancer Screening 2010 HPV/Cotest 2010 COVID-19 Vaccine ( season) 2024 Influenza Vaccine (#1) 2024 9, 08/02/2017, 09/30/2015, Additional history exists Depression Monitoring (PHQ-9) 01/15/2025 07/17/2024, 07/17/2024 SDOH Screening 02/02/2025 02/03/2024 Depression Screening 07/17/2025 07/17/2024, 07/17/20 24 Alcohol/Substance Use Screening 10/24/2025 10/24/2024 Tobacco Screening 10/24/2025 10/24/2024 Mammogram 10/16/2026 10/16/2024 DTaP/Tdap/Td Vaccines (3 - Td or Tdap) 06/07/2027 06/07/2017, 06/07/2007 Lipid Panel 02/13/2029 02/14/2024 Zoster Vaccines (1 of 2) 2030 RSV Patients and Patients Aged 60 years or older (1 - 1-dose 75+ series) 2055 HIB Vaccines Aged Out No longer eligi ble based on patient's age to complete this topic HPV Vaccines Aged Out No longer eligi ble based on patient's age to complete this topic Hepatitis A Vaccines Aged Out No long er eligible based on patient's age to complete this topic IPV Vaccines Aged Out No longer eligi ble based on patient's age to complete this topic Meningococcal Vaccine Aged Out No nehemiah pat eligible based on patient's age to complete this topic RSV under 20 months Aged Out No longe r eligible based on patient's age to complete this topic Rotavirus Vaccines Aged Out No longer eligible based on patient's age to complete this topic Procedures Procedure Name Priority Date/Time Associated Diagnosis Comments BI MAMMOGRAM SCREENING TOMOSYNTHESIS BILATERAL Routine 10/16/2024 8:08 AM EST Encounter for screening mammogram for malignant neoplasm of breast ECG 12-LEAD Routine 10/04/2024 4:07 PM EST Costochondritis HELICOBACTER PYLORI AG, EIA, STOOL Routine 08/22/2024 7:30 AM EST Atypical chest pain RHEUMATOID FACTOR Routine 08/21/2024 3:2 1 PM EST Atypical chest pain COMPA SCREEN, IFA, W/REFL TITER AND PATTERN Routine 08/21/2024 3:21 PM EST Atypical chest pain C-REACTIVE PROTEIN Routine 08/21/2024 3: 21 PM EST Atypical chest pain SED RATE BY MODIFIED WESTERGREN Routine 08/21/2024 3:21 PM EST Atypical chest pain CBC WITH AUTO DIFFERENTIAL Routine 08/21/2024 3:21 PM EST Atypical chest pain COMPREHENSIVE METABOLIC PANEL Routine 08/21/2024 3:21 PM EST Atypical chest pain LIPID PANEL, STANDARD Routine 02/14/2024 2:30 PM EDT Screening for cholesterol level from Last 3 Months or Most Recently Relevant to Health Maintenance Results * BI Mammogram Screening Tomosynthesis Bilateral (10/16/2024 8:08 AM EST) Anatomical Region Laterality Modality Breast Bilateral Mammography 10/16/2024 8:08 AM EST Narrative 10/26/2024 12:19 PM EST ? [facility] ? [address] ?[place] [address] ? Mammography Report ? Signed ? Patient: Karena Nayak M ?MR#: [id number] ?? [id number] ? : 1980 ?Acct:[id number] ? Age/Sex: 44 / F ?ADM Date: 10/16/24 ? Loc: HO.MAMMO ? Attending Dr: Gold Frost MD ? Ordering Physician: Gold Frost MD ?Results: 1Negative ? Date of Service: 10/16/24 ?Follow Up: 1 Year From Orig ?? inal Mammogram ? Procedure(s): MM tomosynthesis screening BI ?? Accession Number(s): [id number] ? cc: Name,Gold WADE ? EXAMINATION: ?? MM SCREENING DIGITAL BREAST TOMOSYNTHESIS, BILATERAL ? CLINICAL INFORMATION: ? Screening. Asymptomatic. ? COMPARISON: ?? Mammography: No prior imaging available for comparison. Prior report ?? from mammogram dated 06/28/2023 available. ? TECHNIQUE: ?? Digital breast mammography with tomosynthesis is performed in both the ?? craniocaudal and mediolateral oblique views along with computer-aided ?? detection (CAD). ? FINDINGS: ?? The breasts are heterogeneously dense, which may obscure small masses ?? (ACR BI-RADS breast composition Category c). ?? Bilateral marker clips. ?? There are no significant masses, abnormal calcifications, or other ?? abnormalities. ? MM/MM tomosynthesis screening BI ?? IMPRESSION: ?? No mammographic evidence of malignancy. ?? Patient describes right chest/breast pain for one year. Recommend ?? clinical evaluation if there is focal pain or if deemed clinically ?? significant a diagnostic workup can be ordered and performed. ? ASSESSMENT: ? BI-RADS BI-RADS 1 - Negative ? RECOMMENDATION: ?? Routine annual mammography screening. ? 1 year F/U ? This examination should not preclude the clinical evaluation of a ?? suspicious palpable abnormality. ? This patient's information was entered into a reminder system with a ?? target due date for their next mammogram. ? Electronically signed by: ??Laila Dennis DO ??10/26/2024 12:15 PM EST ? Dictated By: ?Laila Dennis DO ? Signed By: ?<Electronically signed by Laila Dennis, DO in OV> ? 10/26/24 1215 ? DD/ 0808 ? TD/TT: 10/16/24 0847 ? Sprue Knocker: ? Procedure Note Kgter, Image - 10/26/2024 [place] [facility] [address] [place] [address] Mammography Report Signed Patient: Karena Nayak MMR#: [id number] : 1980Acct:[id number] Age/Sex: 44 / FADM Date: 10/16/24 Loc: HO.MAMMO Attending Dr: Gold Frost MD Ordering Physician: Gold Frostesults: 1Negative Date of Service: 10/16/24Follow Up: 1 Year From Orig inal Mammogram Procedure(s): MM tomosynthesis screening BI Accession Number(s): [id number] cc: Gold Frost MD EXAMINATION: MM SCREENING DIGITAL BREAST TOMOSYNTHESIS, BILATERAL CLINICAL INFORMATION: Screening. Asymptomatic. COMPARISON: Mammography: No prior imaging available for comparison. Prior report from mammogram dated 06/28/2023 available. TECHNIQUE: Digital breast mammography with tomosynthesis is performed in both the craniocaudal and mediolateral oblique views along with computer-aided detection (CAD). FINDINGS: The breasts are heterogeneously dense, which may obscure small masses (ACR BI-RADS breast composition Category c). Bilateral marker clips. There are no significant masses, abnormal calcifications, or other abnormalities. MM/MM tomosynthesis screening BI IMPRESSION: No mammographic evidence of malignancy. Patient describes right chest/breast pain for one year. Recommend clinical evaluation if there is focal pain or if deemed clinically significant a diagnostic workup can be ordered and performed. ASSESSMENT: BI-RADS BI-RADS 1 - Negative RECOMMENDATION: Routine annual mammography screening. 1 year F/U This examination should not preclude the clinical evaluation of a suspicious palpable abnormality. This patient's information was entered into a reminder system with a target due date for their next mammogram. Electronically signed by: Laila Dennis DO 10/26/2024 12:15 PM EST Dictated By: Laila Dennis DO Signed By: <Electronically signed by Laila Dennis DO in OV> 10/26/24 1215 DD/ 0808 TD/TT: 10/16/24 0847 Sprue Knocker: Gold Frost MD IMG BI PROCEDURES Final Result * ECG 12 lead (10/04/2024 4:07 PM EST) Narrative Shruthi Kennedy MD - 10/04/2024 4:07 PM EST 54 bmp nsr without evidence of ischemia or infarction Shruthi Kennedy MD ECG ORDERABLES Final Resu lt * Helicobacter pylori??Antigen, EIA, Stool (08/22/2024 7:30 AM EST) H pylori Ag Stool SEE NOTE [facility] Comment:HELICOBACTER PYLORI AG, EIA, STOOL Micro Number: [id number] Test Status: Final Specimen Source: Stool Specimen Quality: Adequate H.pylori Ag: Not Detected Antimicrobials, proton pump inhibitors, and bismuth preparations inhibit H. pylori and ingestion up to two weeks prior to testing may cause false negative results. If clinically indicated the test should be repeated on a new specimen obtained two weeks after discontinuing treatment. Reference Range: Not DetectedTHIS TEST WAS PERFORMED AT:[facility] [place] [id number] PEREZ MD Stool Rectal contents / Unknown 08/22/2024 7:30 AM EST 08/22/2024 1:17 PM EST us Georgie Jain NP LAB BODY FLUIDS AND STOOLS ORDER MYRA Final Result [facility] [address] [place] [address] [phone] * CBC auto differential (08/21/2024 3:21 PM EST) White Blood Count 6.1 4.8 - 10.8 X10*3/uL [facility] Red Blood Count 4.76 4.20 - 5.50 X10*6/uL [facility] Hemoglobin 12.9 12.0 - 16.0 g/dl [facility] Hematocrit 39.0 37.0 - 47.0 % [facility] Mean Corpuscular Volume 81.9 80.0 - 98.0 fL [facility] Mean Corpuscular Hemoglobin 27.1 27.0 - 33.0 pg [facility] Mean Corpuscular HGB Conc 33.1 31.0 - 35.0 g/dl [facility] Red Cell Distribution Width 13.4 11.0 - 16.0 % [facility] Platelet Count 244 160 - 400 X10*3/uL [facility] Mean Platelet Volume 11.4 9.4 - 12.3 fL [facility] Neutrophils Percent Auto 54.7 45 - 73 % [facility] Imm Gran Pct Auto 0.2 0.0 - 0.4 % [facility] Lymphocytes Percent Auto 34.5 20 - 40 % [facility] Monocytes Percent Auto 8.1 2 - 11 % [facility] Eosinophils Percent Auto 1.8 0 - 4 % [facility] Basophils Percent Auto 0.7 0 - 2 % [facility] NRBC Pct Auto 0.0 0.0 - 0.2 /100WBC [facility] Neutrophils Absolute Auto 3.3 2.0 - 8.3 x10*3/uL [facility] Imm Gran Abs Auto 0.01 0.00 - 0.03 X10*3/uL [facility] Lymphocytes Absolute Auto 2.1 1.2 - 4.9 X10*3/uL [facility] Monocytes Absolute Auto 0.5 0.1 - 1.2 X10*3/uL [facility] Eosinophils Absolute Auto 0.1 0.0 - 0.4 X10*3/uL [facility] Basophils Absolute Auto 0.0 0.0 - 0.2 X10*3/uL [facility] NRBC Abs Auto 0.000 0.0 - 0.012 X10*3/uL [facility] Blood Venous blood specimen / Unknown 08/21/2024 3:21 PM EST 08/21/2024 3:57 PM EST Georgie Jain NP LAB BLOOD ORDERABLES Final Resul t Performing Organization Address [facility] de Phone Number [facility] [address] [place] [phone] * Sed Rate by Modified Elisha (08/21/2024 3:21 PM EST) Erythrocyte Sedimentation Rate 5 0 - 20 MM/HR [facility] Comment:Patients with polycy themia and many hemoglobin abnormalitiesmay have depressed sed rates whereas patients with anemiamay have elevated sed rates. Blood Venous blood specimen / Unknown 08/21/2024 3:21 PM EST 08/21/2024 3:57 PM EST Georgie Jain [employer] UNDERWRITER LAB BLOOD ORDERABLES Final Resul t Performing Organization Address City/[facility]/ZIP Co de Phone Number [facility] [address] [place] [phone] * Rheumatoid Factor (08/21/2024 3:21 PM EST) Pathologist [facility] Rheumatoid Factor <13.0 <15.0 IU/mL [facility] Blood Venous blood specimen / Unknown 08/21/2024 3:21 PM EST 08/21/2024 4:07 PM EST Georgie Jain COMMERCIAL [employer]ES UNDERWRITER LAB BLOOD ORDERABLES Final Resul t Performing Organization Address [facility] de Phone Number [facility] [address] [place] [phone] * C-reactive Protein (08/21/2024 3:21 PM EST) [facility] C Reactive Protein <0.10 < or = 0.50 mg/dL [facility] Blood Venous blood specimen / Unknown 08/21/2024 3:21 PM EST 08/21/2024 4:07 PM EST Georgie Jain NP LAB BLOOD ORDERABLES Final Resul t Performing Organization Address [facility] Phone Number [facility] [address] [place] [phone] * COMPA Screen,IFA, with Reflex to Titer and Pattern (08/21/2024 3:21 PM EST) [facility] Anti Nuclear Antibody Screen NEGATIVE NEGATIVE [facility] Comment:COMPA IFA is a first l ine screen for detecting thepresence of up to approximately 150 autoantibodies invarious autoimmune diseases. A negative COMPA IFA resultsuggests an COMPA-associated autoimmune disease is notpresent at this time, but is not definitive. If thereis high clinical suspicion for Sjogren's syndrome,testing for anti-SS-A/Ro antibody should be considered.Anti-Sarah-1 antibody should be considered for clinicallysuspected inflammatory myopathies.AC-0: NegativeInternational Consensus on COMPA Patterns(https://doi.org/10.1515/wbnq-7415-1402)For additional information, please refer tohttp://education.Patent Safari/faq/RSX358(This link is being provided for informational/educational purposes only.)THIS TEST WAS PERFORMED AT:[facility] [place] [phone] PEREZ MD COMPA Titer TNP [facility] COMPA Pattern TNP [facility] COMPA TITER 2 (REF LAB[facility]PA [facility] 2 [facility] 3 [facility] COMPA PATTERN 3 [facility] Blood Venous blood specimen / Unknown 08/21/2024 3:21 PM EST 08/21/2024 4:07 PM EST us Georgie Jain [employer]ERCIAL [employer] UNDERWRITER LAB BLOOD ORDERABLES Final Resul t [facility] [address] [place] [phone] * (ABNORMAL) Comprehensive Metabolic Panel (08/21/2024 3:21 PM EST) Sodium 138 135 - 145 mmol/L [facility] Potassium 3.6 3.3 - 5.1 mmol/L [facility] Chloride 108 96 - 108 mmol/L [facility] Carbon Dioxide 27 22 - 29 mmol/L [facility] Anion Gap 7(L) 12 - 20 [facility] Urea Nitrogen (BUN) 6(L) 9 - 16 mg/dL [facility] Creatinine, Serum 0.76 0.5 - 1.4 mg/dL [facility] Estimated Glomerular Filt Rate >60 [facility] Comment:Chronic Kidney Disea se: Estimated GFR < 60 mL/min/1.07d7Vgugqi Kidney Disease: Estimated GFR < 15 mL/min/1.73m2 Glucose 104 60 - 115 mg/dL [facility] Calcium 8.9 8.4 - 10.2 mg/dL [facility] Bilirubin, Total 0.9 0.0 - 1.0 mg/dL [facility] Aspartate Amino Transferase 19 5 - 31 U/L [facility] Alanine Aminotransferase 18 0 - 31 U/L [facility] Total Protein 7.0 6.5 - 8.0 g/dL [facility] Albumin Level 4.3 3.5 - 5.0 g/dL [facility] Alkaline Phosphatase 70 39 - 117 U/L [facility] Blood Venous blood specimen / Unknown 08/21/2024 3:21 PM EST 08/21/2024 4:07 PM EST us Georgie Jain NP LAB BLOOD ORDERABLES Final Resul t [facility] [address] [place] [phone] * (ABNORMAL) Lipid Panel, Standard (02/14/2024 2:30 PM EDT) Triglycerides 162(H) <150 mg/dL [facility] Comment:Desirable Triglyceri de: less than 150 mg/dLBorderline High Triglyceride 150-199 mg/dLHigh Triglyceride: 200-499 mg/dLVery High Triglyceride: greater than or equal to 5OO mg/dL Cholesterol 192 <200 mg/dL [facility] Comment:Desirable Cholestero l: less than 200 mg/dLBorderline High Cholesterol: 200-239 mg/dLHigh Cholesterol: greater than 239 mg/dL LDL Cholesterol Calculated 93 <100 mg/dL [facility] Comment:Desirable LDL: less than 100 mg/dLNear Optimal/Above Optimal LDL: 110- 129 mg/dLBorderline High LDL: 130-159 mg/dLHigh LDL: 160-189 mg/dLVery High LDL: greater than or equal to 190 mg/dL HDL Cholesterol 67 >40 mg/dL [facility] Comment:Desirable HDL: great er than 40 mg/dL Note: This HDL assay may give artificially low results in patients with liver disease. Blood Venous blood specimen / Unknown 02/14/2024 2:30 PM EDT 02/14/2024 3:53 PM EDT us Gold Frost MD LAB BLOOD ORDERABLES Final Resul t [facility] [address] [place] [phone] from Last 3 Months or Most Recently Relevant to Health Maintenance Insurance MEDICARE Member Subscriber Plan / Payer (Ef fective 2022-Present) Name:Karena Nayak Member ID:[id number] Relation to Subscriber:Self Name:Karena Nayak Subscriber ID:[id number] Payer ID:STATE Group ID:Not on file Type:Medicare Address: [facility] [address] [id number] [facility] Care Teams Coder Relationship Specialty Start Date End Date Name, MD Gold [address] [place] [address] PCP - General Family Medicine 02/02/16
--- OUTSIDE RECORDS SUMMARY | 2024-11-02 07:59 | XMS_ITS | Encounter Summary ---
Author Organization [employer] Address [address] [place] [address] Care Team Providers Care Materials Planning Analyst Name Role Phone Gold Frost MD Primary Care Provider [phone] Reason for Referral * Imaging (Routine) - Authorized Specialty Diagnoses / Procedures Referred By Contac t Referred To Contact Radiology Diagnoses Non-cardiac chest pain Chronic neck pain H/O cervical spine surgery Foraminal stenosis of cervical region Procedures MR Cervical Spine w/o Contrast Gold Frost MD [address] [place] [phone] Phone: tel: fax: [address] Phone: tel: fax: Referral ID Status Reason Start Date Expiration Date V isits Requested Visits Authorized [id number] Authorized 10/24/2024 10/24/2025 1 1 Reason for Visit * Reason Comments Follow-up Encounter Details Date Type Department Care Team (Late st Contact Info) Description 10/24/2024 2:15 PM EST Office Visit [facility] [address] [place] [phone] Gold Frost MD [address] [place] [phone] Foraminal stenosis of cervical region (Primary Dx); H/O cervical spine surgery; Non-cardiac chest pain; Chronic neck pain; Essential hypertension Social History Tobacco Use Types Packs/Day Years [...] Mass Index 29.45 10/24/2024 2:14 PM EST documented in this encounter Progress Notes * Gold Frost, - 10/24/2024 2:15 PM EST Subjective Patient ID: Karena Nayak is a 44 y.o. female who presents for Follow-up. Patient comes for a follow-up visit. She is having several months of severe pain. She described pain location in the posterior neck, bilateral shoulders and upper chest. She has been to the ER, walk-in clinic, and she has seen Blue team providers. She was given diagnosis of costochondritis. She hasbeen doing physical therapy without any benefit. She was suggested by her physical therapist to come to see me since they believe she might be having pain radiating from the cervical spine. She has apersonal history of cervical spine disc disease. She had cervical spine surgery in the past. Patient constant pain is exacerbating her anxiety. The patient is unable to work because of the pain. She has asked me for a letter to excuse her from her current job. Review of Systems Constitutional: Negative for chills and fever. HENT: Negative for sore throat. Respiratory: Negative for cough, shortness of breath and wheezing. Cardiovascular: Negative for chest pain, palpitations and leg swelling. Gastrointestinal: Negative for abdominal pain. Musculoskeletal: See HPI. Neurological: She does not have significant hand weakness today. Visit Vitals BP (!) 147/91 (BP Location: Right arm, Patient Position: Sitting, BP Cuff Size: Large adult) Pulse 67 Temp 96.6 ??F (35.9 ??C) (Temporal) Resp 16 Ht 5' 2 (1.575 m) Wt 161 lb (73 kg) SpO2 97% BMI 29.45 kg/m?? Smoking Status Former BSA 1.79 m?? Objective Physical Exam Constitutional: Appearance: Normal appearance. Cardiovascular: Rate and Rhythm: Normal rate and regular rhythm. Heart sounds: No murmur heard. No gallop. Pulmonary: Effort: Pulmonary effort is normal. No respiratory distress. Breath sounds: Normal breath sounds. No wheezing. Musculoskeletal: Cervical back: Spasms and tenderness present. Right lower leg: No edema. Left lower leg: No edema. Neurological: Mental Status: She is alert and oriented to person, place, and time. Motor: No weakness. Assessment/Plan Diagnoses and all orders for this visit: Foraminal stenosis of cervical region Comments: MRI 2017 showed C5-C6 surgical fusion right neuroforaminal stenosis C3-C4. I recommended short course of prednisone to see if it helps with the pain. I think is possible the pain is radiated from thecervical spine. I will evaluated with a repeat MRI of the cervical spine. Follow-up televisit afterthe MRI. Further recommendation based on results. Orders: - MR Cervical Spine w/o Contrast; Future H/O cervical spine surgery Comments: C5-C6 ACDF with Dr. Hernandez not sure the year but about 10 years ago Orders: - MR Cervical Spine w/o Contrast; Future Non-cardiac chest pain - See above. MR Cervical Spine w/o Contrast; Future Chronic neck pain - predniSONE (Deltasone) 20 MG tablet; Take 3 tablets (60 mg) by mouth Once per day for 3 days, THEN 2 tablets (40 mg) Once per day for 3 days, THEN 1 tablet (20 mg) Once per day for 3 days. - MR Cervical Spine w/o Contrast; Future Essential hypertension Comments: Continue losartan. I recommended to restart chlorthalidone. I recommended to check blood pressure at home daily. We will discuss her BP readings at her next televisit after the MRI of the cervical spine is done. Orders: - chlorthalidone (Hygroton) 25 MG tablet; Take 1 tablet (25 mg) by mouth Once per day. - losartan (Cozaar) 25 MG tablet; Take 1 tablet (25 mg) by mouth Once per day. documented in this encounter Plan of Treatment Scheduled Orders Name Type Priority Associated Diagnoses Orde r Schedule MR Cervical Spine w/o Contrast Imaging Routine Non-cardiac chest pain Chronic neck pain H/O cervical spine surgery Foraminal stenosis of cervical region Expected: 10/24/2024, Expires: 10/24/2025 documented as of this encounter Visit Diagnoses Diagnosis Foraminal stenosis of cervical region- Primary H/O cervical spine surgery Non-cardiac chest pain Other chest pain Chronic neck pain Cervicalgia Essential hypertension Unspecified essential hypertension documented in this encounter Additional Health Concerns Assessment Noted Time PHQ-9 Depression Total Score: 12 024 1:30 PM EDT documented as of this encounter Care Teams Materials Planning Analyst Relationship Specialty Start Date End Date Name, MD Gold [address] [place] [address] PCP - General Family Medicine 02/02/16 documented as of this encounter
--- OUTSIDE RECORDS SUMMARY | 2024-11-02 07:59 | XMS_ITS | Encounter Summary ---
Author Organization [employer] Address [address] [place] [address] Care Team Providers Care Dust Brush Assembler Name Role Phone Name, Gold WADE Primary Care Provider [phone] Reason for Visit * Reason Onset Date Comments Request For Order(s) 10/23/2024 Encounter Details Date Type Department Care Team (Late st Contact Info) Description 10/23/2024 Telephone [facility] [address] [place], [place] [phone] Name, MD Gold [address] [place] [address] Request For Order(s) Social History Tobacco Use Types Packs/Day Years [...] encounter Miscellaneous Notes * Telephone Encounter - Adilene Lerner RN - 10/23/2024 1:09 PM EST TC placed to pt per PCP message, She has appointment with me tomorrow, we can discuss then. Pt verbalized understanding and denies any questions or concerns at this time. * Telephone Encounter - Adilene Lerner RN - 10/23/2024 11:59 AM EST TC placed to pt regarding request for Chest CT SCAN. Pt reports she has had back and forth ER visits for over a year and was referred to physical therapy. Pt reports a CHEST CT SCAN was supposed to be ordered. Pt reports she has started physical therapy and they are looking for the CHEST CT SCAN asthey are concerned about the level of pain she is having. Message forwarded to provider to review and advise. * Telephone Encounter - Rosalinda Webb - 10/23/2024 8:55 AM EST Tc from pt requesting an order for a CHEST CT SCAN as physical therapy requested the order. documented in this encounter Plan of Treatment Not on file documented as of this encounter Visit Diagnoses Not on filedocumented in this encounter Additional Health Concerns Assessment Noted Time PHQ-9 Depression Total Score: 12 024 1:30 PM EDT documented as of this encounter Care Teams Dust Brush Assembler Relationship Specialty Start Date End Date Name, MD Gold [address] [place] [address] PCP - General Family Medicine 02/02/16 documented as of this encounter
== END 2024-11-02 07:56 | disposition home or self-care (01) ==
LOC: HO.MRI 07:55
PROVIDERS: PCP Internal Medicine Geriatric Medicine; Visit Provider Internal Medicine Geriatric Medicine
DX: Z98.890 Other specified postprocedural states (principal)
CPT/HCPCS: 72141

== ENCOUNTER 2025-03-12 12:55 | Outpatient (REF) | payer MEDICARE, MEDICAID, SELFPAY ==
--- NOTE | ~2025-03-12 | CT_ITS ---
CLINICAL HISTORY: M94.0 : Chondrocostal junction syndrome [Tietze] --- Additional Notes or Special In structions: hx of prior cervical spine fusion who has been experiencing persistent costochondritis d espite tx with PT and symptomatic managemen CT chest without contrast Comparison: None Findings: The heart size is normal. The visualized thyroid and mediastinum are unremarkable. Mild biapical lung scarring. Mild left basilar atelectasis. 2 mm right middle lobe nodule on series 4, image 78. No lung infiltrate. Left adrenal adenoma. The bones are intact. IMPRESSION: 2 mm right middle lobe nodule. Follow-up per Fleischner society criteria recommended. Left adrenal adenoma. ------ Fleischner 2017 Guidelines were utilized to develop follow up recommendations for this patient. The full article can be viewed at: https://goo.gl/JEEJEh Follow up strategies in solid nodules vary depending on patient risk assessment, with patient's classified as high or low risk. Low risk is associated with young age, smaller nodule size, regular margins, and location in an area other than the upper lobe. High risk factors include older age, heavy smoking, emphysema, carcinogen exposure, larger nodule size, irregular or spiculated margins, and upper lobe location. Nodule size and morphology are the dominant factors. Follow up of subsolid nodules (including ground glass and part solid opacities) is different when compared to solid nodules based on risk of malignancy and a longer doubling time in this group. Therefore when follow up is recommended, it is for a longer interval. Also in this group, recommendations may vary depending on a solitary lesion versus multiplicity of lesions. A calculator of estimated risk is available at: https://goo.gl/JEEJEh This document has been electronically signed by: Mini Gonzalez MD on 03/13/2025 12:14:06
--- OUTSIDE RECORDS SUMMARY | 2025-03-12 15:08 | XMS_ITS | Encounter Summary ---
Author Organization [employer] Address [address] [place] [address] Care Team Providers Care Community Service Officer Coordinator Name Role Phone Name, Gold WADE Primary Care Provider [phone] Reason for Visit * Reason Onset Date Comments Nurse Triage 09/12/2023 Encounter Details Date Type Department Care Team ([facility] st Contact Info) Description 09/12/2023 Telephone [facility] [address] [place], [place] [phone] Name, MD Gold [address] [place] [address] Nurse Triage Social History Tobacco Use Types [...] services. PT advise of disposition, agrees to [facility] tomorrow as PCP will be covering. Nothing [...] a good place! Please contact pt @ [phone] documented in this encounter Plan of Treatment Upcoming Encounters Date Type Department Care Team (Late st Contact Info) Description 03/13/2025 11:00 AM EDT Clinical Support [address] [address] Rox Goddard RN 04/18/2025 11:15 AM EDT Office Visit [address] [address] Name, MD Gold [address] [place] [phone] documented as of this encounter Visit Diagnoses Not on filedocumented in this encounter Additional Health Concerns Assessment Noted Time PHQ-9 Depression Total Score: 25 023 2:19 PM EDT documented as of this encounter Care Teams Community Service Officer Coordinator Relationship Specialty Start Date End Date NameGold MD [address] [place] [phone] PCP - General Family Medicine 02/02/16 documented as of this encounter
== END 2025-03-12 12:56 | disposition home or self-care (01) ==
LOC: HO.CT 12:55
PROVIDERS: PCP Internal Medicine Geriatric Medicine; Visit Provider Registered Nurse
DX: M94.0 Chondrocostal junction syndrome [Tietze] (principal)
CPT/HCPCS: 71250